=== PATIENT | male | born 1945 | race Caucasian/White ===

== ENCOUNTER 2023-12-23 21:26 | Observation (INO) | payer BC, MEDICARE, SELFPAY ==
[2023-12-23 17:14] VITALS: BP 177/70
[2023-12-23 17:53] LABS: % Basophils 0.5 % (0-2); % Eosinophils 1.2 % (0-6); % Immature Granulocytes 0.8 % (0-0.5); % Monocytes 9.2 % (1.7-9.3); % Neutrophils 75.3 % (42.2-75.2); Absolute Basophils 0.1 10^3/uL (0-0.2); Absolute Eosinophils 0.1 10^3/uL (0-0.7); Absolute Immature Granulocytes 0.1 10^3/uL (0-0.05); Absolute Lymphocytes 1.4 10^3/uL (1.2-3.4); Absolute Neutrophils 7.9 10^3/uL (1.4-6.5); Hematocrit 31.4 % (39.0-52.0); Hemoglobin 10.3 g/dL (13.0-18.0); Mean Corp Hgb Conc. 32.8 g/dL (33.0-37.0); Mean Corpuscular Hgb 28.6 pg (27.0-31.0); Mean Corpuscular Volume 87.2 fL (80.0-94.0); Nucleated Red Blood Cells % 0 % (-); Platelet Count 368 10^3/uL (130-400); Red Cell Dist. Width 14.1 % (11.5-14.5); White Blood Cell Count 10.5 10^3/uL (4.8-10.8)
[2023-12-23 18:04] VITALS: BMI 31.0
[2023-12-23 18:09] LABS: ALT (SGPT) 21 U/L (0-50); AST (SGOT) 31 U/L (17-59); Albumin 3.5 g/dl (3.5-5.0); Alkaline Phosphatase 63 U/L (38-126); Blood Urea Nitrogen 60 mg/dl (9-20); Calcium 8.4 mg/dl (8.4-10.2); Carbon Dioxide 16 mmol/L (22-30); Chloride 109 mmol/L (98-107); Estimated Creatinine Clearance 25 ml/min; Glucose 292 mg/dl (70-99); Potassium 3.9 mmol/L (3.5-5.1); Sodium 139 mmol/L (135-145); Total Bilirubin 0.4 mg/dl (0.2-1.3); eGFR 23.54
[2023-12-23 19:30] LABS: INR 3.15; PT 32.8 Sec (11.4-14.6)
--- NOTE | 2023-12-23 19:42 | ED.GENMED ---
History of Present Illness
General
Chief Complaint: Numbness
Time Seen by Provider: 12/23/23 17:56
Travel History
Have you had any contact with someone who has COVID-19?: No
Do you have any symptoms of coronavirus? Fever > 100 degrees, chills, cough, shortness of breath, sore throat, loss of taste or smell, muscle aches, or headache?: No
History of Present Illness
History of Present Illness:
78-year-old male with history of aortic stenosis status post AVR, CHF, hypertension, hyperlipidemia, and prior TIA presents to the emergency department for evaluation of strokelike symptoms developing 1 week ago. He reports left upper extremity
weakness beginning 1 week ago that progressively worsened, today felt as though he could not clip his nails using the left hand. Noticed this morning the left leg became weak. He denies any headaches or vision changes, denies neck pain, chest
pain, or shortness of breath. Has been compliant with his Coumadin, uncertain of his last INR but states that his previous TIA like events have occurred when his INR drops below therapeutic threshold
Past History
Past History
ED Past Medical History: CAD, CHF, HTN, Hypercholesterolemia, IDDM, Valvular disease and Other (JEREMIAH-no CPAP)
ED Past Surgical History: Cardiac (CABG, Aortic valve replaced) and Orthopedic
Social History
Tobacco: Non-smoker
Alcohol: None
Drug: None
Personal:
Living: with family
Employment: Other
Family History
Family History: Other
Review of Systems
Review of Systems
Allergies reviewed?: Yes
All Other Systems: ROS reviewed and negative except as documented in HPI and ROS
Phy Exam
Physical Exam
Physical Exam:
GEN: Well appearing, NAD, WDWN
HEENT: Oral mucosa moist, no scleral icterus, no nasal congestion
Cardiac: Regular rate
Lung: No respiratory distress, no tachypnea
MSK: No gross deformity or injuries
Skin: Good color, no pallor or jaundice, no rashes
Neuro: AO x3; CN II-XII grossly intact. 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 BLE strength: LLE 4/5 in all killian, RLE 5/5 all killian, sensation intact and symmetric
Psych: Calm, cooperative
Course
Orders/Labs/Results
Orders:
Orders
12/23/23 17:14
Electrocardiogram (*1) Urgent
Reason for Study: Fatigue / Weakness
CT Head W/o Iv Contrast Urgent
Comment:
Reason For Exam: numbness to left arm and leg x1 wk
EKG- Treatment ONCE
12/23/23 17:37
Complete Blood Count/With Diff Urgent
Comprehensive Metabolic Panel Urgent
12/23/23 19:08
Prothrombin Time Urgent
Abnormal Lab Results
12/23/23 12/23/23
17:37 19:08
RBC 3.60 L 10^6/uL
(4.70-6.10)
Hgb 10.3 L g/dL
(13.0-18.0)
Hct 31.4 L %
(39.0-52.0)
MCHC 32.8 L g/dL
(33.0-37.0)
Abs Immat Gran (auto) 0.1 H 10^3/uL
(0-0.05)
Absolute Neuts (auto) 7.9 H 10^3/uL
(1.4-6.5)
Absolute Monos (auto) 1.0 H 10^3/uL
(0.1-0.6)
Immature Gran % 0.8 H %
(0-0.5)
Neutrophils % 75.3 H %
(42.2-75.2)
Lymphocytes % 13.0 L %
(20.5-51.1)
PT 32.8 H Sec
(11.4-14.6)
Chloride 109 H mmol/L
(98-107)
Carbon Dioxide 16 L mmol/L
(22-30)
BUN 60 H mg/dl
(9-20)
Creatinine 2.7 H mg/dL
(0.7-1.3)
Glucose 292 H mg/dl
(70-99)
Total Protein 6.0 L g/dl
(6.3-8.2)
12/23/23 17:37
12/23/23 17:37
Vital Signs
Initial and Last Documented VS:
Initial Vital Signs
Temp Pulse Resp Pulse Ox
98.1 F 97 16 97
12/23/23 17:11 12/23/23 17:11 12/23/23 17:11 12/23/23 17:11
Last Documented Vital Signs
Temp Pulse Resp BP Pulse Ox
98.1 F 97 16 177/70 99
12/23/23 17:11 12/23/23 17:11 12/23/23 17:11 12/23/23 17:14 12/23/23 18:04
MDM/Problems Addressed
MDM/Problems Addressed:
78-year-old male presents for evaluation of left upper and lower extremity weakness. Objectively he has extremity weakness graded 4/[address] of the head is unremarkable. Patient is anticoagulated with an INR of 3.15, at this time
there is no indication for thrombolytics or antiplatelets given his anticoagulant use coupled with time of onset. His renal function precludes the use of CT angiogram at this time. Will admit the patient for further stroke workup
*Critical Care Note
Total Time (30-74mins, 75-104mins- exclusive of procedures): Not Applicable
ED Attending Note
-
Portions of this chart may have been created with voice recognition software.� Occasional wrong word or��sound alike� substitutions may have occurred due to the inherent limitations of voice recognition software.
Discharge Plan
Departure
Patient Disposition: Admit
Date of Disposition: 12/23/23
Time of Disposition: 19:47
Presentation/result/management discussed w/ accepting /: Hospitalist
Discharge Problem:
Acute stroke due to ischemia
Prescriptions:
No Action
amlodipine 10 MG tablet
10 mg PO DAILY
insulin aspart U-100 [Novolog FlexPen U-100 Insulin] 300 UNITS/3 ML insulin pen
16 - 24 units SC .SLIDING SCALE MEALS
Patient Comments:
16-24 units, sliding scale depending on food intake and carbs
atorvastatin 40 MG tablet
40 mg PO HS
fenofibric acid (choline) 135 MG capsule,delayed release(DR/EC)
135 mg PO DAILY
warfarin [Jantoven] 5 MG tablet
2.5 mg PO TU
warfarin [Jantoven] 5 MG tablet
5 mg PO SUMOWETHFRSA
dutasteride [Avodart] 0.5 MG capsule
0.5 mg PO DAILY
hydralazine 50 MG tablet
50 mg PO TID
furosemide 40 MG tablet
40 mg PO BID Qty: 60 2RF
calcitriol 0.25 MCG capsule
0.25 mcg PO DAILY
sodium bicarbonate 650 mg Tablet
650 mg PO DAILY
insulin glargine 100 unit/mL Solution
32 unit SC HS
Referrals:
Julieth Lange DO [Family Provider] -
Interventions
Interventions:
*Risk Screen - Suicide Last Done: 12/23/23 18:04
*General Assessment Last Done: 12/23/23 18:04
*Neglect/Abuse Screening Last Done: 12/23/23 18:04
ED- Fall Risk Assessment Last Done: 12/23/23 18:04
*ED COVID-19 Vaccine History Last Done: 12/23/23 17:11
ED- Neurological Assessment Last Done: 12/23/23 18:04
[2023-12-23 20:51] VITALS: BP 184/89
[2023-12-23 21:00] VITALS: BP 173/84
--- NOTE | 2023-12-23 21:08 | HPS.HSE ---
Family Physician
-
Family Physician: Julieth Lange
Chief Complaint
-
left sided weakness/numbness
History of Present Illness
78-year-old male past medical history of aortic stenosis status post TAVR, CAD status post CABG, paroxysmal atrial fibrillation on Coumadin, HFpEF,, diabetes, diabetic retinopathy, hypertension, hyperlipidemia, prior TIA, stage IV CKD, presenting
for strokelike symptoms which she developed 1 week ago. He had left upper extremity numbness weakness starting a week ago that got progressively worse and today he felt as though he could not clip his nails using the left hand. This morning he
noticed the left leg became weak and numb. He denies any headache or vision changes, neck pain or chest pain or shortness of breath. Did have some dizziness today.
Medical History
Past Medical History
Past Medical History: Reports Other ( aortic stenosis status post TAVR, CAD status post CABG, paroxysmal atrial fibrillation on Coumadin, HFpEF,, diabetes, diabetic retinopathy, hypertension, hyperlipidemia, prior TIA, stage IV CKD,)
Past Surgical History: Reports None
Social History
Tobacco: Non-smoker
Alcohol: None
Drug: None
Family History
Family History: Not pertinent
Allergies / Home Medications
Allergies reflects when Allergies were last updated in [facility].
Home Medications with original date entered in [facility]
Allergy/Medication List:
Allergies
Allergy/AdvReac Type Severity Reaction Status Date / Time
Iodinated Contrast Media Allergy severe Verified 12/23/23 17:13
[IV Dye, Iodine Containing] joint pain
Home Medications
amlodipine 10 mg tablet 10 mg PO DAILY Blood pressure 06/11/15
insulin aspart U-100 100 unit/mL (3 mL) subcutaneous pen (Novolog FlexPen U-100 Insulin aspart) 16 - 24 sliding scale dose SC AC Diabetes 08/13/17
atorvastatin 40 mg tablet 40 mg PO HS High cholesterol 06/28/19
fenofibric acid (choline) 135 mg capsule,delayed release 135 mg PO DAILY High cholesterol 06/28/19
dutasteride 0.5 mg capsule (Avodart) 0.5 mg PO DAILY Urinary issue 11/06/20
warfarin 5 mg tablet (Jantoven) 2.5 mg PO WETH Blood clot prevention/tx 11/06/20
warfarin 5 mg tablet (Jantoven) 5 mg PO SUMOTUFRSA Blood clot prevention/tx 11/06/20
hydralazine 50 mg tablet 50 mg PO TID Heart disease/condition 05/20/21
furosemide 40 mg tablet 40 mg PO BID Fluid retention/Swelling #60 tabs 10/22/21
calcitriol 0.25 mcg capsule 0.25 mcg PO SUTUTHSA Kidney Disease 01/29/22
sodium bicarbonate 650 mg tablet 650 mg PO TID Electrolyte Repletion 08/12/22
calcitriol 0.5 mcg capsule 0.5 mcg PO MOWEFR 12/23/23
insulin glargine 100 unit/mL (3 mL) subcutaneous pen 28 unit SC HS 12/23/23
Review of Systems
-
History Source: Patient
A 12 point ROS was completed and negative except as noted: Yes
Constitutional: Reports No Symptoms
EENT: Reports No Symptoms
Respiratory: Reports No Symptoms
Cardiac: Reports No Symptoms
Abdomen/GI: Reports No Symptoms
: Reports No Symptoms
Musculoskeletal: Reports No Symptoms
Skin: Reports No Symptoms
Neurological: Reports See HPI
Endocrine: Reports No Symptoms
Hematologic/Lymphatic: Reports No Symptoms
Psych: Reports No Symptoms
Physical Exam
Vital Signs
Vital Signs
Temp Pulse Resp BP Pulse Ox
97.9 F 77 18 184/89 96
12/23/23 20:51 12/23/23 20:51 12/23/23 20:51 12/23/23 20:51 12/23/23 20:51
Physical Exam
General: Well Developed, Well Nourished and No Apparent Distress
HEENT: NormoCephalic, Moist mucous membranes and Atraumatic
Respiratory: Clear
Cardiac: S1/S2 and Regular Rhythm; No Murmur or Rub
GI: Soft, Non Tender, Non Distended and Normal Bowel Sounds; No Organomegaly
Rectal: Deferred by Provider
Musculoskeletal: No Clubbing, No Cyanosis and No Edema
Skin: No Rash
Neuro: Nonfocal/grossly intact and Other (strength 4/5)
Laboratory Results
-
12/23/23 17:37
12/23/23 17:37
Laboratory Results
PT 32.8 Sec (11.4-14.6) H 12/23/23 19:08
INR 3.15 12/23/23 19:08
Total Bilirubin 0.4 mg/dl (0.2-1.3) 12/23/23 17:37
AST 31 U/L (17-59) 12/23/23 17:37
ALT 21 U/L (0-50) 12/23/23 17:37
Alkaline Phosphatase 63 U/L (38-126) 12/23/23 17:37
Data Reviewed
-
Lab Data: Labs Reviewed by me
Old Records: Reviewed
Impression/Plan
-
IMPRESSION:
PLAN:
# Likely CVA
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
-Cannot perform CTA due to renal function
-Check MRI brain//MRA head and neck
-Continue Coumadin as per neurology
-INR 3.15
-Continue statin
Paroxysmal atrial fibrillation
-continue coumadin
History of aortic stenosis status post TAVR with bioprosthetic valve
CAD status post CABG
Chronic HFpEF
-Continue Lasix
Moderate mitral regurgitation
Essential hypertension
-Continue amlodipine, hydralazine
Type 2 diabetes
-Continue Lantus 32 units
-Moderate sliding scale
CKD stage IV
-Continue sodium bicarb
-Continue calcitriol
Hyperlipidemia
-Continue statin
History of prior TIA
BPH
-Continue dutasteride
Full code
DVT prophylaxis�Coumadin
Regular diet
[2023-12-23 22:00] VITALS: BP 158/88
[2023-12-23] MEDS: LANTUS 0.280000000000000027 UNITS SC (22:51)
[2023-12-23] MEDS: SODIUM BICARBONATE PO ×2 (22:53→22:56)
[2023-12-23 22:54] LABS: Glucose - Point of Care 195 mg/dl (70-99)
[2023-12-23] MEDS: APRESOLINE PO ×2 (22:54→22:57)
[2023-12-23 23:26] VITALS: BP 136/82
[2023-12-23] MEDS: LIPITOR 40 MG PO (23:33)
[2023-12-24] VITALS (13 sets, daily range): BP systolic 124–182; BP diastolic 65–113; PULSE 79–85; O2SAT 96
[2023-12-24 04:29] LABS: Hematocrit 28.8 % (39.0-52.0); Hemoglobin 9.7 g/dL (13.0-18.0); Mean Corp Hgb Conc. 33.7 g/dL (33.0-37.0); Mean Corpuscular Hgb 29.1 pg (27.0-31.0); Mean Corpuscular Volume 86.5 fL (80.0-94.0); Platelet Count 321 10^3/uL (130-400); Red Blood Cell Count 3.33 10^6/uL (4.70-6.10); Red Cell Dist. Width 14.2 % (11.5-14.5); White Blood Cell Count 8.1 10^3/uL (4.8-10.8)
[2023-12-24 04:40] LABS: INR 3.09; PT 32.4 Sec (11.4-14.6)
[2023-12-24 05:10] LABS: Blood Urea Nitrogen 67 mg/dl (9-20); Calcium 9.1 mg/dl (8.4-10.2); Carbon Dioxide 24 mmol/L (22-30); Chloride 105 mmol/L (98-107); Estimated Creatinine Clearance 22 ml/min; Glucose 136 mg/dl (70-99); HDL Cholesterol 47 mg/dl; LDL Cholesterol, Calculated 61 mg/dl; Potassium 3.8 mmol/L (3.5-5.1); Sodium 141 mmol/L (135-145); Total Cholesterol 131 mg/dl (50-199); Triglyceride 117 mg/dl (10-149); Very Low Density Lipoprotein 23 mg/dl (0-30); eGFR 19.94
[2023-12-24 08:16] LABS: Glucose - Point of Care 137 mg/dl (70-99)
[2023-12-24] MEDS: APRESOLINE 50 MG PO ×3 (08:16→22:03)
[2023-12-24] MEDS: NORVASC 10 MG PO (08:16)
[2023-12-24] MEDS: LASIX 40 MG PO ×2 (08:16→16:46)
[2023-12-24] MEDS: NOVOLOG FLEXPEN-MODERATE RESISTANCE SC (08:16)
[2023-12-24] MEDS: SODIUM BICARBONATE 650 MG PO ×3 (08:16→22:07)
[2023-12-24] MEDS: PROSCAR 5 MG PO (08:17)
[2023-12-24] MEDS: ROCALTROL 0.25 MCG PO (08:18)
--- NOTE | 2023-12-24 08:55 | CON.NEURO4 ---
Addendum entered and electronically signed by Pb Dubon MD 12/24/23 12:27:
Studies reviewed.
I have personally examined the patient. I reviewed and agree with the SLIP COVER MAKER's Note.
My addenda:
Awake, alert, interactive. No acute distress.
Speech intact.
Follows 2-step requests w/o difficulty. No tremor.
Extra-ocular movements grossly intact.
Facial movements full and symmetric. Hearing intact to normal conversational volume.
Normal UE movements bilaterally.
Neck: full ROM.
Chest: no dyspnea
Heart: no JVD
Ext: (-) Clubbing, (-) Cyanosis, (-) Edema
IMPRESSIONS/RECOMMENDATIONS:
Abrupt onset of left arm and leg sense of heaviness and numbness without facial involvement
MRI brain without evidence of structural abnormality matching the patient's symptomatology although the persistence of symptoms has been across numerous days.
Differential diagnosis must include cervical myelopathy, metabolic abnormality, atypical presentation of demyelinating motor and sensory abnormality (least likely based on the patient's intermittent recurrence since July 2022)
Check MRI of brain (completed)
Check MRI of cervical spine to ensure no structural abnormality producing symptomatology
Check blood work for potential metabolic causes
Consider EMG study
D/W patient
Will continue to follow pending results.
Original Note:
Consultation - Neurology 4
-
CONSULTING PHYSICIAN: Pb Dubon MD
REFERRING PHYSICIAN: Hospitalists/Dr. Serrato
DICTATED BY: JOSE Nunez
DATE/TIME OF REQUEST: 12/23/23
DATE/TIME OF CONSULTATION: 12/24/23
Reason for Consultation: Stroke symptoms
History of Present Illness:
This is a 78-year-old ambidextrous male who has presented to the hospital on 12/23/23 with report of left-sided numbness and weakness starting one week ago. Patient has been evaluated by our inpatient Neurology service several times in the past for
similar symptoms.
From previous Neurology evaluation by Dr. Pisano on 08/13/22:
'Patient is a right-handed 77-year-old man with a past medical history of TURP, bioprosthetic valve replacement, right ICA stent presenting the hospital because of left leg heaviness and numbness that he first noticed when awakening yesterday
morning.� Patient reports has been in his normal state of health recently and has been compliant with Coumadin.� He did have a little bit of a standing and pain on the left hip and buttock around a week ago but denies any radiating type pain from
the left buttock hip or left leg.� He says that the left leg is felt heavy and a bit weak and his walking feels a little bit off but he has been able to walk around independently since this started.� The symptoms seem to be sudden onset and severity
is mild to moderate, no obvious alleviating or provoking factors.� He has had some constipation but no unusual or acute changes in bowel or bladder dysfunction including any sudden incontinence of bowel or bladder dysfunction.� He does report
history of TIAs in the past usually involving the left leg only or perhaps the left leg and arm that usually occurred in the context of holding Coumadin for procedures, as with the last 1 of these happen several months ago.� He did have a right ICA
stent placed years ago by Dr. Cain, reports having been evaluated by vascular surgery in the context of one of the TIA events.'
MRI brain imaging following these events in the past, in the setting of holding his Coumadin for a procedure and/or subtherapeutic INR, have demonstrated an old left cerebellar lacunar infarct but have been negative for any acute findings. These
events were deemed TIA or his most recent event in 07/2022 was deemed due to left-sided lumbar radiculopathy.
Patient reports that about 7-10 days ago he developed left-sided chest discomfort radiating down his left arm. This was associated with LUE weakness and left arm/hand numbness down the back of his left arm and in his left hand 4th and 5th fingers
only. Yesterday (12/23/23) he reports that his LLE felt weak and he was unable to use his left hand to clip his nails, prompting him to come to the ER for evaluation. ER VS: 97.9 F, HR 77, BP 184/89, RR 18, 96% RA. ER Labs: hgb 10.3, INR 3.15, Cr
2.7, glucose 292. CT head was obtained and is negative for acute infarct and hemorrhage. Patient was not a candidate for TNK/IAT due to NIHSS<6, outside of time window, and unclear diagnosis. Currently, patient reports that his symptoms are
persistent. He denies any headache, vision changes, neck/back pain, speech/swallow difficulty, nausea, chest pain, palpitations, and shortness of breath. He does endorse having some dizziness associated with standing up a few days ago, none
currently. He reports chronic issues with constipation and urinating requiring urethral dilation every few days. He denies missing any doses of his Coumadin or recent subtherapeutic INR readings. He reports that his symptoms feel similar to previous
events but they have never lasted this long, his symptoms have resolved in a few hours with previous episodes.
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
Surgical History: AVR, R ICA stent, hernia repair, TURP, ankle and wrist surgery, left cataract removal
Family History: Father- [place]
Social History: Denies tobacco, alcohol, and illicit drug use.
Allergies: Iodinated contrast.
Home Medications: See below.
Review of Symptoms:
Patient denies any fever, headache, chest pain, shortness of breath, GI or symptoms.
�Per the HPI.�All systems are reviewed negative except above.
Physical Exam:
The patient is afebrile, abdomen is nondistended, breathing is unlabored, skin is warm and dry, no edema. Scalloping noted on tongue.
NIH Stroke Scale:
I performed the NIH stroke scale on the patient on 12/24/23 at 0900. The patient scored 1 points on the NIH stroke scale assessment, which were assigned as follows: See below.
Neurologic Examination:
The patient is awake, alert and oriented x 3. He is able to follow commands and answer questions appropriately. There is no aphasia or dysarthria. On cranial nerve assessment, pupils are 3 mm bilateral, round and reactive to light and
accommodation. Visual killian are full. Extraocular movements are intact. Facial sensations are intact and bilaterally symmetrical, there is no facial asymmetry. Hearing is diminished bilaterally to normal conversation volume. Tongue palate and
uvula are midline. Sternocleidomastoid strengths are full bilaterally. Motor strengths are 5/5 right upper and lower and left upper and lower extremities on medical research [place] scale. There is no drift or involuntary movement noted. Deep tendon
reflexes are silent in bilateral upper and lower extremities. Babinski is absent bilaterally. Sensation of touch is reduced mildly in the left hand 4th/5th fingers. There was no extinction noted on double simultaneous stimulation. Coordination is
intact by finger to nose bilaterally.
Lab Results: See below.
Neuro Imaging:
1. CT Head 12/23/23: No CT evidence for acute intracranial hemorrhage or transcortical infarct. Small chronic infarct in the superior left cerebellar hemisphere. Mild periventricular white matter leukoaraiosis in the frontal lobes.
Mild diffuse cerebral and cerebellar volume loss. Mild acute right sphenoid sinusitis.
2. MRI Brain 12/24/23: No acute intracranial abnormality noted. No acute infarct. 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 Acute superimposed on chronic sinusitis most pronounced involving the right maxillary sinus and right sphenoid sinus.
3. MRA COW 12/24/23: pending
4. MRA Neck 12/24/23: pending
Differentials for the patient's presentation include:
1. MRI brain imaging negative for acute/subacute stroke. Duration of symptoms not compatible with TIA.
2. Chronic left cerebellar lacunar infarct.
3. Cervical and/or lumbar radiculopathy possibly contributing to symptoms although
4. Metabolic disturbance possibly contributing to symptoms
5. Acute on chronic right maxillary and sphenoid sinusitis.
6. History of carotid stenosis
Patient has the following risk factors for their symptoms: Hx stroke, Afib (Coumadin), IDDM, HLD, HTN, carotid stenosis, age
IV Tenecteplase/IAT candidacy: Not a candidate due to NIHSS <6, outside of time window.
Recommendations:
-MRA neck and COW ordered/pending
-Continue home Coumadin regimen.
-Would consider MRI cervical and lumbar spine imaging, this can be completed as an outpatient.
-Consider EMG testing as an outpatient.
-Checking blood work for metabolic abnormalities.
-LDL goal <70. LDL is 61. Continue home atorvastatin 40mg daily.
-Goal normoglycemia, hbA1c is pending.
-Neurological checks per unit guidelines.
-Provide patient with stroke education packet.
-PT/OT evaluations
-Patient should follow-up with Neurology as an outpatient, may see the SLIP COVER MAKER Rama Asher or one of the physicians.
Discussed patient care with: Dr. Dubon, the patient
Vital Signs and Labs
-
Vital Signs and Labs:
Vital Signs
Temp Pulse Resp BP Pulse Ox
97.9 F 82 17 162/74 96
12/24/23 11:20 12/24/23 11:20 12/24/23 11:20 12/24/23 11:20 12/24/23 11:20
Lab Results
12/24/23 03:54
12/24/23 03:54
PT 32.4 Sec (11.4-14.6) H 12/24/23 03:54
INR 3.09 12/24/23 03:54
Sodium 141 mmol/L (135-145) 12/24/23 03:54
Potassium 3.8 mmol/L (3.5-5.1) 12/24/23 03:54
BUN 67 mg/dl (9-20) H 12/24/23 03:54
Glucose 136 mg/dl (70-99) H 12/24/23 03:54
Calcium 9.1 mg/dl (8.4-10.2) 12/24/23 03:54
LDL Cholesterol, Calc 61 mg/dl 12/24/23 03:54
Medications
-
Active Medications
Generic Name Dose Route Start Last Admin
Trade Name Freq PRN Reason Stop Dose Admin
Acetaminophen 650 mg 12/23/23 21:47
Acetaminophen 650 Mg Rectal Suppository RECTAL 01/20/24 21:46
Q4HPRN PRN
THOMAS, mild pain, or temp >100.4F
Acetaminophen 650 mg 12/23/23 21:47
Acetaminophen 325 Mg Tablet PO 01/20/24 21:46
Q4HPRN PRN
THOMAS, mild pain, or temp >100.4F
Amlodipine Besylate 10 mg 12/24/23 08:00 12/24/23 08:16
Amlodipine 10 Mg Tablet PO 01/21/24 07:59 10 mg
DAILY CHENG Administration
Atorvastatin Calcium 40 mg 12/23/23 22:00 12/23/23 23:33
Atorvastatin (Lipitor) 40 Mg Tablet PO 01/20/24 21:59 40 mg
HS CHENG Administration
Calcitriol 0.25 mcg 12/24/23 08:00 12/24/23 08:18
Calcitriol 0.25 Microgram Capsule PO 01/21/24 07:59 0.25 mcg
MoWeFr@0800 CHENG Administration
Calcitriol 0.25 mcg 12/25/23 08:00
Calcitriol 0.25 Microgram Capsule PO 01/22/24 07:59
SuTuThSa@0800 CHENG
Dextrose 12.5 grams 12/23/23 21:47
Dextrose 50% (0.5 Grams/Ml) 50 Ml Syringe IV 01/20/24 21:46
[id number] PRN
hypoglycemia
Protocol
Finasteride 5 mg 12/24/23 08:00 12/24/23 08:17
Finasteride 5 Mg Tablet PO 01/21/24 07:59 5 mg
DAILY CHENG Administration
Furosemide 40 mg 12/24/23 08:00 12/24/23 08:16
Furosemide 40 Mg Tablet PO 01/21/24 07:59 40 mg
BID AT 0800,1600 CHENG Administration
Glucagon 1 mg 12/23/23 21:47
Glucagon 1 Mg Vial IM 01/20/24 21:46
PRN PRN
hypoglycemia
Protocol
Hydralazine HCl 50 mg 12/23/23 22:00 12/24/23 08:16
Hydralazine 50 Mg Tablet PO 01/20/24 21:59 50 mg
TID CHENG Administration
Insulin Glargine 28 units/ 0.28 mls @ 0 mls/hr 12/23/23 22:00 12/23/23 22:51
Device SC 01/20/24 21:59 0.28 mls
HS CHENG Administration
As Directed
Insulin Aspart 0 units 12/24/23 07:30 12/24/23 08:16
Insulin Aspart Moderate Resistance 300 Units/3 Ml Pen.Injctr SC 01/21/24 07:29 Not Given
AC CHENG
Protocol
Sodium Bicarbonate 650 mg 12/23/23 22:00 12/24/23 08:16
Sodium Bicarbonate 650 Mg Tablet PO 01/20/24 21:59 650 mg
TID CHENG Administration
Sodium Chloride 0 flush 12/23/23 22:00
Sodium Chloride 0.9% (Flush) Syringe IV 01/20/24 21:59
PER PROTOCOL CHENG
Warfarin Sodium 2.5 mg 12/29/23 18:00
Warfarin 2.5 Mg Tablet PO 01/03/24 17:59
WeTh@1800 CHENG
Warfarin Sodium 5 mg 12/24/23 18:00
Warfarin 5 Mg Tablet PO 12/29/23 17:59
SuMoTuFrSa@1800 CHENG
Home Medications
Medication Instructions Recorded
amlodipine 10 mg tablet 10 mg PO DAILY Blood pressure 06/11/15
insulin aspart U-100 100 unit/mL - sliding scale dose SC AC 08/13/17
(3 mL) subcutaneous pen (Novolog Diabetes
FlexPen U-100 Insulin aspart)
atorvastatin 40 mg tablet 40 mg PO HS High cholesterol 06/28/19
fenofibric acid (choline) 135 mg 135 mg PO DAILY High cholesterol 06/28/19
capsule,delayed release
dutasteride 0.5 mg capsule 0.5 mg PO DAILY Urinary issue 11/06/20
(Avodart)
warfarin 5 mg tablet (Jantoven) 2.5 mg PO WETH Blood clot 11/06/20
prevention/tx
warfarin 5 mg tablet (Jantoven) 5 mg PO SUMOTUFRSA Blood clot 11/06/20
prevention/tx
hydralazine 50 mg tablet 50 mg PO TID Heart 05/20/21
disease/condition
furosemide 40 mg tablet 40 mg PO BID Fluid 10/22/21
retention/Swelling #60 tabs
calcitriol 0.25 mcg capsule 0.25 mcg PO SUTUTHSA Kidney Disease 01/29/22
sodium bicarbonate 650 mg tablet 650 mg PO TID Electrolyte Repletion 08/12/22
calcitriol 0.5 mcg capsule 0.5 mcg PO MOWEFR Kidney Disease 12/23/23
insulin glargine 100 unit/mL (3 28 unit SC HS Diabetes 12/23/23
mL) subcutaneous pen
[2023-12-24] MEDS: ATIVAN 1 MG PO (10:09)
[2023-12-24 12:00] LABS: Glycohemoglobin (HgbA1c) 7.2 % (4.0-5.6)
[2023-12-24 12:12] LABS: Glucose - Point of Care 327 mg/dl (70-99)
--- NOTE | 2023-12-24 12:49 | W.PN.HOSP.TC ---
Today's Communication/Plan
-
see bold
Assessment / Plan
Assessment / Plan
Gen: NAD, Awake and alert
Eyes: EOMI, PERRLA, no scleral icterus.
Neck: supple.
CV: RRR, +S1/S2 (loud S2), 2/6 systolic murmur
Resp: CTAB, no rales, wheezes, or rhonchi.
Abd: +BS, soft, NT, ND
Skin: No rashes.
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
Psych: Normal mood and affect.
MRI brain: No acute intracranial abnormality noted. No acute infarct. 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 Acute superimposed on chronic sinusitis most pronounced involving the right maxillary sinus and right sphenoid sinus.
MRA head/neck: Subtle segmental narrowing involving the distal right common carotid artery approaching the carotid bulb. No other significant plaque or stenosis of the cervical common carotid or internal carotid artery, bilaterally. No occlusion. No
dissection. The cervical vertebral arteries are patent, as are the intradural vertebral arteries and basilar artery. Minor segmental narrowing of the right MCA distal M1 segment without significant stenosis or occlusion. Mild plaque of the anterior
genu of the cavernous ICA, bilaterally, though with estimated luminal diameter reduction of less than 50%.
Left-sided weakness/numbness
-Acute CVA ruled out by MRI brain above
-Case discussed with neurology, will check MRI C-spine
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
-Could not perform CTA due to renal function
-Continue Coumadin as per neurology
-Continue statin
Other problems:
Paroxysmal atrial fibrillation: cont Coumadin
History of aortic stenosis status post TAVR with bioprosthetic valve
CAD status post CABG: cont statin
Chronic HFpEF: Continue Lasix
Moderate mitral regurgitation
Essential hypertension: Continue amlodipine, hydralazine
DM2: cont Lantus/SSI/accuchecks
CKD4: cont sodium bicarb/calcitriol
Hyperlipidemia: Continue statin
History of prior TIA
BPH: Continue dutasteride
FULL/Coumadin
Anticipated Discharge: Within 24 hours
Subjective/Interval History
-
Date of Service: December 24, 2023
Patient reports left arm and left leg weakness and paresthesias.
Objective Data
-
Labs:
Laboratory Results
12/24/23
03:54
WBC 8.1
Hgb 9.7 L
Hct 28.8 L
Plt Count 321
PT 32.4 H
INR 3.09
Sodium 141
Potassium 3.8
Chloride 105
Carbon Dioxide 24
BUN 67 H
Creatinine 3.1 H
Glucose 136 H
Calcium 9.1
Vital Signs:
Vital Signs
Temp Pulse Resp BP Pulse Ox
97.9 F 82 17 162/74 96
12/24/23 11:20 12/24/23 11:20 12/24/23 11:20 12/24/23 11:20 12/24/23 11:20
I&O
12/23/23 12/24/23 12/25/23
06:59 06:59 06:59
Intake Total 240 / 240
Output Total 600 / 600 200 / 200
Balance -360 / -360 -200 / -200
[2023-12-24] MEDS: NOVOLOG FLEXPEN-MODERATE RESISTANCE 7 UNITS SC (13:04)
[2023-12-24 14:25] LABS: TSH Reflex To Free T4 2.29 uIU/ml (0.47-4.68)
[2023-12-24 15:00] LABS: Folate 16.9 ng/ml (2.76-20); Vitamin B12 435 pg/ml (239-931)
[2023-12-24 16:54] LABS: Glucose - Point of Care 189 mg/dl (70-99)
[2023-12-24] MEDS: NOVOLOG FLEXPEN-MODERATE RESISTANCE 1 UNITS SC (17:18)
[2023-12-24] MEDS: COUMADIN 5 MG PO (17:22)
[2023-12-24 21:34] LABS: Glucose - Point of Care 370 mg/dl (70-99)
[2023-12-24] MEDS: NOVOLOG FLEXPEN 7 UNITS SC (22:03)
[2023-12-24] MEDS: LANTUS 0.280000000000000027 UNITS SC (22:07)
[2023-12-24] MEDS: LIPITOR 40 MG PO (22:07)
[2023-12-25 02:44] LABS: Glucose - Point of Care 52 mg/dl (70-99)
[2023-12-25 03:05] LABS: Glucose - Point of Care 115 mg/dl (70-99)
--- NOTE | 2023-12-25 03:09 | PTCARENOTE ---
Addendum entered by Freda Langston RN 12/25/23 03:10:
pt rang call guerrero c/o feeling low BG. BG 52 at 0242. 4oz juice given as well as crackers. BG came up to 115 after 15 min recheck. will recheck in 2 hrs and monitor.
Original Note:
pt BG at 2130 370, JOSE Willson notified. 7U novolog ordered and administered.
[2023-12-25 03:26] VITALS: BP 132/68
[2023-12-25 05:22] LABS: Glucose - Point of Care 164 mg/dl (70-99)
[2023-12-25 06:00] VITALS: BMI 31.2
[2023-12-25 07:36] VITALS: BP 157/81
[2023-12-25 07:46] LABS: Glucose - Point of Care 117 mg/dl (70-99)
--- NOTE | 2023-12-25 08:19 | W.PN.HOSP.TC ---
Today's Communication/Plan
-
Awaiting MRI C-spine
Assessment / Plan
Assessment / Plan
Gen: NAD, Awake and alert
Eyes: EOMI, PERRLA, no scleral icterus.
Neck: supple.
CV: Remains RRR, +S1/S2 (loud S2), 2/6 systolic murmur
Resp: Remains CTAB, no rales, wheezes, or rhonchi.
Abd: +BS, soft, NT, ND
Skin: No rashes.
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
Psych: Normal mood and affect.
MRI brain: No acute intracranial abnormality noted. No acute infarct. 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 Acute superimposed on chronic sinusitis most pronounced involving the right maxillary sinus and right sphenoid sinus.
MRA head/neck: Subtle segmental narrowing involving the distal right common carotid artery approaching the carotid bulb. No other significant plaque or stenosis of the cervical common carotid or internal carotid artery, bilaterally. No occlusion. No
dissection. The cervical vertebral arteries are patent, as are the intradural vertebral arteries and basilar artery. Minor segmental narrowing of the right MCA distal M1 segment without significant stenosis or occlusion. Mild plaque of the anterior
genu of the cavernous ICA, bilaterally, though with estimated luminal diameter reduction of less than 50%.
Left-sided weakness/numbness
-Acute CVA ruled out by MRI brain above
-Case discussed with neurology, will check MRI C-spine
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
-Could not perform CTA due to renal function
-Continue Coumadin as per neurology
-Continue statin
Other problems:
Paroxysmal atrial fibrillation: cont Coumadin
History of aortic stenosis status post TAVR with bioprosthetic valve
CAD status post CABG: cont statin
Chronic HFpEF: Continue Lasix
Moderate mitral regurgitation
Essential hypertension: Continue amlodipine, hydralazine
DM2: cont Lantus/SSI/accuchecks
CKD4: cont sodium bicarb/calcitriol
Hyperlipidemia: Continue statin
History of prior TIA
BPH: Continue dutasteride
FULL/Coumadin
Anticipated Discharge: Today
Subjective/Interval History
-
Date of Service: December 25, 2023
Pt reports he still has intermittent left-sided weakness.
Objective Data
-
Vital Signs:
Vital Signs
Temp Pulse Resp BP Pulse Ox
98.0 F 72 16 157/81 97
12/25/23 07:36 12/25/23 07:36 12/25/23 07:36 12/25/23 07:36 12/25/23 07:36
I&O
12/24/23 12/25/23 12/26/23
06:59 06:59 06:59
Intake Total 240 / 240 480 / 480
Output Total 600 / 600 800 / 800
Balance -360 / -360 -320 / -320
[2023-12-25] MEDS: NOVOLOG FLEXPEN-MODERATE RESISTANCE SC (08:30)
[2023-12-25] MEDS: NORVASC 10 MG PO (08:31)
[2023-12-25] MEDS: PROSCAR 5 MG PO (08:31)
[2023-12-25] MEDS: SODIUM BICARBONATE 650 MG PO ×3 (08:31→21:25)
[2023-12-25] MEDS: LASIX 40 MG PO ×2 (08:31→16:18)
[2023-12-25] MEDS: APRESOLINE 50 MG PO ×3 (08:31→21:25)
[2023-12-25 09:37] LABS: INR 2.72; PT 29.3 Sec (11.4-14.6)
[2023-12-25] MEDS: ROCALTROL 0.25 MCG PO (10:05)
[2023-12-25 11:51] LABS: Glucose - Point of Care 249 mg/dl (70-99)
[2023-12-25] MEDS: ATIVAN 1 MG PO (11:54)
[2023-12-25 12:05] VITALS: BP 166/81
[2023-12-25] MEDS: NOVOLOG FLEXPEN-MODERATE RESISTANCE 3 UNITS SC ×2 (12:30→17:07)
--- NOTE | 2023-12-25 13:53 | CM ---
CM following re: discharge planning.
reviewed pt's chart, met with pt.
Pt is a 78 year old male, admitted with OBS status and primary concerns of Left-sided weakness/numbness.
Acute CVA ruled out by MRI brain. OBS status explained to the pt, pt expressed his understanding, declined to sign. Copy of [facility] Letter placed on chart, pt has a copy. Pt stated 'I hope i can be out here today'. Pt stated his family will transport
him home today.
Pt reports he lives with spouse and a son in a 2SH, 2 steps to enter, has 3 supportive children. 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 No DME, VN or SNF history.
PCP: [facility]
Pharmacy: [facility].
D/C plan: home no needs. Family to transport.
--- NOTE | 2023-12-25 14:07 | W.PN.NEURO.1 ---
Today's Communication / Plan
-
MRI Cspine read pending
Neuro Assessment/Plan
Assessment
78 year-old male with LUE numbness/weakness/diminished dexterity concerning for cervical radiculopathy. He also complains of intermittent numbness/abnormal sensation in the proximal lateral LLE concerning for possible lumbar radiculopathy. MRI
brain negative for stroke as cause for his symptoms.
Plan
-MRI Cspine read pending
-consider EMG/NCS and MRI Lspine as outpatient
-can be discharged after MRI Cspine read
-consider outpatient spine evaluation/PT depending upon results
Subjective/Objective
Subjective Data
Date of Service: December 25, 2023
had some L shoulder pain this morning (now resolved), still having numbness on posterior aspect of left arm and L hand 4th/5th digits as well as some L hand weakness/diminished dexterity; also complains of some proximal lateral LLE numbness
Objective Data
Vital Signs
Temp Pulse Resp BP Pulse Ox
98.0 F 86 18 166/81 97
12/25/23 12:05 12/25/23 12:05 12/25/23 12:05 12/25/23 12:05 12/25/23 12:05
Lab Results
12/24/23 03:54
12/24/23 03:54
PT 29.3 Sec (11.4-14.6) H 12/25/23 09:04
INR 2.72 12/25/23 09:04
Sodium 141 mmol/L (135-145) 12/24/23 03:54
Potassium 3.8 mmol/L (3.5-5.1) 12/24/23 03:54
BUN 67 mg/dl (9-20) H 12/24/23 03:54
Glucose 136 mg/dl (70-99) H 12/24/23 03:54
Calcium 9.1 mg/dl (8.4-10.2) 12/24/23 03:54
LDL Cholesterol, Calc 61 mg/dl 12/24/23 03:54
Vitamin B12 435 pg/ml (239-931) 12/24/23 03:54
Patient Allergies
Iodinated Contrast Media [IV Dye, Iodine Containing] Allergy (Verified 12/23/23 17:13)
severe joint pain
Physical Exam
-
General: Well Developed, Well Nourished and No Apparent Distress
Extended Neurological Exam
Mood & Affect: Mood Unremarkable and Affect Unremarkable
Attention Span & Concentration: Awake, Alert and Interactive
Memory: Unremarkable
Tremor: Hand Tremor Absent
Involuntary Movement: None
Speech: Quality Unremarkable, Quantity Unremarkable and Rate of Production Unremarkable
Cranial Nerve II: Left Eye: Pupillary Reactivity Unremarkable
Cranial Nerve II: Right Eye: Pupillary Reactivity Unremarkable
Cranial Nerves III, IV, : Extraocular Movement: Extraocular Movement Full in all Directions
Cranial Nerve V: Facial Sensation: Facial Sensation Unremarkable to Cold
Cranial Nerve VII: Facial Symmetry: Normal Facial Symmetry
Cranial Nerve VIII: Hearing: Unremarkable Hearing to Normal Conversational Volume
Cranial Nerves IX, X: Palate Movement: Palate Elevation Symmetric
Cranial Nerve XI: Shoulder Shrug: Unremarkable
Cranial Nerve XII: Tongue Protusion: Midline
Muscle Strength, Overall: Other (L biceps and hand probate judge strength 4+; otherwise full strength)
Deep Tendon Reflexes: Other (1+ throughout)
Cold Sensation: Unremarkable
Touch Sensation: Unremarkable
Coordination: [id number]-[id number] Testing Unremarkable
Modified Tolleson Score (MRS)
-
MRS Score:
[2023-12-25 15:45] VITALS: BP 153/72
[2023-12-25 16:59] LABS: Glucose - Point of Care 237 mg/dl (70-99)
[2023-12-25] MEDS: COUMADIN 5 MG PO (17:11)
[2023-12-25 19:35] VITALS: BP 168/78
[2023-12-25] MEDS: LIPITOR 40 MG PO (21:25)
[2023-12-25 21:44] LABS: Glucose - Point of Care 178 mg/dl (70-99)
[2023-12-25] MEDS: LANTUS 0.280000000000000027 UNITS SC (21:46)
[2023-12-25 23:00] VITALS: BP 131/75
[2023-12-26 03:30] VITALS: BP 135/67
[2023-12-26 03:33] LABS: Glucose - Point of Care 70 mg/dl (70-99)
[2023-12-26 04:12] LABS: Glucose - Point of Care 155 mg/dl (70-99)
[2023-12-26 04:23] VITALS: BMI 31.2
[2023-12-26 07:00] VITALS: BP 147/63
[2023-12-26 07:04] LABS: INR 2.92; PT 30.9 Sec (11.4-14.6)
--- NOTE | 2023-12-26 07:34 | W.PN.HOSP.TC ---
Today's Communication/Plan
-
d/c
Assessment / Plan
Assessment / Plan
Gen: NAD, Awake and alert
Eyes: EOMI, PERRLA, no scleral icterus.
Neck: supple.
CV: Continues to remain RRR, +S1/S2 (loud S2), 2/6 systolic murmur
Resp: Continues to remain CTAB, no rales, wheezes, or rhonchi.
Abd: +BS, soft, NT, ND
Skin: No rashes.
Neuro: CN 2-12 intact, decreased sensation to touch in the left fourth and fifth fingers, 5/5 x 4
Psych: Normal mood and affect.
MRI brain: No acute intracranial abnormality noted. No acute infarct. 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 Acute superimposed on chronic sinusitis most pronounced involving the right maxillary sinus and right sphenoid sinus.
MRI C-spine: Multilevel cervical degenerative disc disease.
MRA head/neck: Subtle segmental narrowing involving the distal right common carotid artery approaching the carotid bulb. No other significant plaque or stenosis of the cervical common carotid or internal carotid artery, bilaterally. No occlusion. No
dissection. The cervical vertebral arteries are patent, as are the intradural vertebral arteries and basilar artery. Minor segmental narrowing of the right MCA distal M1 segment without significant stenosis or occlusion. Mild plaque of the anterior
genu of the cavernous ICA, bilaterally, though with estimated luminal diameter reduction of less than 50%.
Left-sided weakness/numbness
-Could not perform CTA due to renal function
-Acute CVA ruled out by MRI brain above
-MRI C-spine above with multilevel cervical degenerative disc disease
-neurology saw in c/s. Case discussed with Dr. Medina today she is cleared the patient for discharge
-currently on coumadin/statin
-Outpatient follow-up with spinal surgery
Other problems:
Paroxysmal atrial fibrillation: cont Coumadin
History of aortic stenosis status post TAVR with bioprosthetic valve
CAD status post CABG: cont statin
Chronic HFpEF: Continue Lasix
Moderate mitral regurgitation
Essential hypertension: Continue amlodipine, hydralazine
DM2: cont Lantus/SSI/accuchecks
CKD4: cont sodium bicarb/calcitriol
Hyperlipidemia: Continue statin
History of prior TIA
BPH: Continue dutasteride
FULL/Coumadin
Medically stable for discharge. Case management aware.
Total time spent on d/c = 31 min. This included today's physical exam, progress note, review of laboratory and diagnostic data, preparation of discharge documents and prescriptions, and discussions about the pt's hospital course and discharge plan
with the patient and other director medical safety involved in the patient's care.
Anticipated Discharge: Today
Subjective/Interval History
-
Date of Service: December 26, 2023
No new complaints. Patient reports strength in his left upper extremity has improved. He is ambulating without difficulty. He does report numbness in his left fourth and fifth fingers.
Objective Data
-
Labs:
Laboratory Results
12/26/23
05:52
PT 30.9 H
INR 2.92
Vital Signs:
Vital Signs
Temp Pulse Resp BP Pulse Ox
98 F 73 16 135/67 97
12/26/23 03:30 12/26/23 03:30 12/26/23 03:30 12/26/23 03:30 12/26/23 03:30
I&O
12/25/23 12/26/23 12/27/23
06:59 06:59 06:59
Intake Total 480 / 480 600 / 600 960 / 960
Output Total 800 / 800
Balance -320 / -320 600 / 600 960 / 960
[2023-12-26 08:11] LABS: Glucose - Point of Care 77 mg/dl (70-99)
[2023-12-26] MEDS: NOVOLOG FLEXPEN-MODERATE RESISTANCE SC (08:27)
[2023-12-26] MEDS: NORVASC 10 MG PO (08:28)
[2023-12-26] MEDS: SODIUM BICARBONATE 650 MG PO (08:28)
[2023-12-26] MEDS: LASIX 40 MG PO (08:28)
[2023-12-26] MEDS: APRESOLINE 50 MG PO (08:28)
[2023-12-26] MEDS: PROSCAR 5 MG PO (08:28)
[2023-12-26] MEDS: ROCALTROL 0.25 MCG PO (08:31)
--- NOTE | 2023-12-26 10:40 | CM ---
CM following re: discharge planning.
Reviewed pt's chart, met with pt.
Discharge order noted. Pt is aware and he stated his spouse is coming to transport home.
PT and OT evaluations noted - outpatient PT/OT recommended. CM discussed it with pt and pt strongly declined outpatient PT/OT. Pt stated he is fine to stay with family and does not need any services.
Pt is OBS status, no IMM form needed.
D/C plan: home with no needs. Spouse to transport.
--- NOTE | 2023-12-26 13:40 | W.DCSUMMARY ---
Discharge Summary
Discharge Data
Date of Admission: 12/23/23
Date of Discharge: 12/26/23
-
Pending Results: No
Hospital Course
Primary diagnoses:
Left-sided weakness/numbness due to cervical degenerative disc disease
Secondary diagnoses:
Paroxysmal atrial fibrillation
History of aortic stenosis status post transcatheter aortic valve replaced with bioprosthetic valve
Coronary artery disease status post coronary artery bypass graft
Chronic heart failure with preserved ejection fraction
Moderate mitral regurgitation
Essential hypertension
Type 2 diabetes mellitus
Chronic kidney disease stage IV
Hyperlipidemia
h/o transient ischemic attack
Benign prostatic hypertrophy
Consultants:
Neurology
Imaging:
MRI brain: No acute intracranial abnormality noted. No acute infarct. 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 Acute superimposed on chronic sinusitis most pronounced involving the right maxillary sinus and right sphenoid sinus.
MRI C-spine: Multilevel cervical degenerative disc disease.
MRA head/neck: Subtle segmental narrowing involving the distal right common carotid artery approaching the carotid bulb. No other significant plaque or stenosis of the cervical common carotid or internal carotid artery, bilaterally. No occlusion. No
dissection. The cervical vertebral arteries are patent, as are the intradural vertebral arteries and basilar artery. Minor segmental narrowing of the right MCA distal M1 segment without significant stenosis or occlusion. Mild plaque of the anterior
genu of the cavernous ICA, bilaterally, though with estimated luminal diameter reduction of less than 50%.
78-year-old male who presented with chief complaints of left-sided weakness and numbness as outlined in the H&P done on admission. Patient cannot have a CT angiogram of the head and neck due to his chronic kidney disease stage IV. Patient had
MRI/MRA of the head and neck as above. There was no acute infarct. MRI C-spine above with multilevel cervical degenerative disc disease. Neurology saw the patient in consultation. The case was discussed with Dr. Medina on the day of discharge
and she cleared the patient for discharge. He will need outpatient follow-up with spinal surgery. His weakness improved while hospitalized.
Discharge Plan
-
Patient Disposition: Home (Routine Discharge)
Discharge Diagnosis/Procedures: Left-sided weakness and paresthesias likely due to cervical spine degenerative disc disease
Condition: Good
Diet: Diabetic, Carb Controlled
Activity: As tolerated
Driving Restrictions: Not until seen by your Dr
Referrals:
Julieth Lange DO [Family Provider] - in less than 1 week
Clint Duran MD [Active] - in one to two weeks
Prescriptions:
Continued
amlodipine 10 MG tablet
10 mg PO DAILY
insulin aspart U-100 [Novolog FlexPen U-100 Insulin] 300 UNITS/3 ML insulin pen
16 - 24 sliding scale dose SC AC
Patient Comments:
16-24 units, sliding scale depending on food intake and carbs
atorvastatin 40 MG tablet
40 mg PO HS
fenofibric acid (choline) 135 MG capsule,delayed release(DR/EC)
135 mg PO DAILY
warfarin [Jantoven] 5 MG tablet
2.5 mg PO WETH
warfarin [Jantoven] 5 MG tablet
5 mg PO SUMOTUFRSA
dutasteride [Avodart] 0.5 MG capsule
0.5 mg PO DAILY
hydralazine 50 MG tablet
50 mg PO TID
furosemide 40 MG tablet
40 mg PO BID Qty: 60 2RF
calcitriol 0.25 MCG capsule
0.25 mcg PO SUTUTHSA
sodium bicarbonate 650 mg Tablet
650 mg PO TID
calcitriol 0.5 mcg Capsule
0.5 mcg PO MOWEFR
insulin glargine 100 unit/mL (3 mL) Insulin Pen
28 unit SC HS
Discharge Orders:
Discharge Patient (As Directed); Ordered 12/26/23
Ordered By: Faisal Huerta
Discharge Date and Time
Discharge Date/Time: 12/26/23 12:29
== END 2023-12-26 12:29 | disposition home or self-care (01) ==
LOC: 3 WEST ACU 21:26
PROVIDERS: Physician Assistant; ADMITTING PHYSICIAN Hospitalist; ATTENDING PHYSICIAN Internal Medicine; EMERGENCY PHYSICIAN Emergency Medicine; FAMILY PHYSICIAN Family Medicine; OTHER PHYSICIAN Psychiatry & Neurology Neurology
DX: M50.31 Other cervical disc degeneration, high cervical region (principal); M50.321 Other cervical disc degeneration at C4-C5 level; M50.322 Other cervical disc degeneration at C5-C6 level; M50.323 Other cervical disc degeneration at C6-C7 level; M48.02 Spinal stenosis, cervical region; R53.1 Weakness; R20.0 Anesthesia of skin; I08.0 Rheumatic disorders of both mitral and aortic valves; N18.4 Chronic kidney disease, stage 4 (severe); I50.32 Chronic diastolic (congestive) heart failure; E78.00 Pure hypercholesterolemia, unspecified; I25.10 Atherosclerotic heart disease of native coronary artery without angina pectoris; G47.33 Obstructive sleep apnea (adult) (pediatric); E11.22 Type 2 diabetes mellitus with diabetic chronic kidney disease; E11.319 Type 2 diabetes mellitus with unspecified diabetic retinopathy without macular edema; R42 Dizziness and giddiness; I13.0 Hypertensive heart and chronic kidney disease with heart failure and stage 1 through stage 4 chronic kidney disease, or unspecified chronic kidney disease; I48.0 Paroxysmal atrial fibrillation; N40.0 Benign prostatic hyperplasia without lower urinary tract symptoms; Z95.2 Presence of prosthetic heart valve; Z86.73 Personal history of transient ischemic attack (TIA), and cerebral infarction without residual deficits; Z95.1 Presence of aortocoronary bypass graft; Z79.4 Long term (current) use of insulin; Z79.01 Long term (current) use of anticoagulants; Z91.041 Radiographic dye allergy status; Z87.442 Personal history of urinary calculi
CPT/HCPCS: 70450; 70544; 70548; 70551; 72141; 80048; 80053; 80061; 82607; 82728; 82746; 82962; 83036; 84443; 85025; 85027; 85610; 93005; 97166; 99285; A9585; G0378

== ENCOUNTER → 2024-01-06 12:21 | Outpatient (REF) | payer BC, MEDICARE, SELFPAY ==
[2024-01-06 14:19] LABS: INR 3.13; PT 32.6 Sec (11.4-14.6)
== END ==
LOC: REG 12:21
PROVIDERS: ATTENDING PHYSICIAN Internal Medicine Cardiovascular Disease
DX: I48.0 Paroxysmal atrial fibrillation (principal)
CPT/HCPCS: 36415; 85610

== ENCOUNTER 2024-02-04 23:07 | Inpatient (IN) | payer BC, MEDICARE, SELFPAY ==
[2024-02-04 17:25] VITALS: BP 130/98
[2024-02-04 20:06] VITALS: BP 173/52
[2024-02-04 20:35] LABS: % Basophils 0.5 % (0-2); % Eosinophils 0.9 % (0-6); % Immature Granulocytes 0.6 % (0-0.5); % Lymphocytes 8.9 % (20.5-51.1); % Monocytes 10.7 % (1.7-9.3); % Neutrophils 78.4 % (42.2-75.2); Absolute Basophils 0.1 10^3/uL (0-0.2); Absolute Eosinophils 0.1 10^3/uL (0-0.7); Absolute Immature Granulocytes 0.1 10^3/uL (0-0.05); Absolute Lymphocytes 0.8 10^3/uL (1.2-3.4); Absolute Neutrophils 7.2 10^3/uL (1.4-6.5); Hematocrit 26.4 % (39.0-52.0); Hemoglobin 9.1 g/dL (13.0-18.0); Mean Corp Hgb Conc. 34.5 g/dL (33.0-37.0); Mean Corpuscular Hgb 28.3 pg (27.0-31.0); Mean Corpuscular Volume 82.2 fL (80.0-94.0); Mean Platelet Volume 9.6 fL (7.4-10.4); Nucleated Red Blood Cells % 0 % (-); Platelet Count 385 10^3/uL (130-400); Red Blood Cell Count 3.21 10^6/uL (4.70-6.10); Red Cell Dist. Width 14.3 % (11.5-14.5); White Blood Cell Count 9.2 10^3/uL (4.8-10.8)
[2024-02-04 20:41] LABS: INR 4.41; PT 42.2 Sec (11.4-14.6)
[2024-02-04 20:42] LABS: APTT 57.4 Sec (23.4-35.0)
[2024-02-04 20:47] LABS: NT-proBNP 4010 pg/ml
[2024-02-04 20:53] LABS: ALT (SGPT) 22 U/L (0-50); AST (SGOT) 36 U/L (17-59); Albumin 3.9 g/dl (3.5-5.0); Alkaline Phosphatase 64 U/L (38-126); Blood Urea Nitrogen 65 mg/dl (9-20); Calcium 9.2 mg/dl (8.4-10.2); Carbon Dioxide 21 mmol/L (22-30); Chloride 106 mmol/L (98-107); Glucose 106 mg/dl (70-99); Potassium 4.2 mmol/L (3.5-5.1); Sodium 135 mmol/L (135-145); Total Bilirubin 0.4 mg/dl (0.2-1.3); Total Protein 6.9 g/dl (6.3-8.2); eGFR 12.75
--- NOTE | 2024-02-04 21:22 | ED.GENMED ---
History of Present Illness
General
Chief Complaint: Abnormal Lab Value
Source: patient
Exam Limitations: none
Time Seen by Provider: 02/04/24 18:47
Nursing documentation reviewed up to this point in time: agreed with
Travel History
Have you had any contact with someone who has COVID-19?: No
Do you have any symptoms of coronavirus? Fever > 100 degrees, chills, cough, shortness of breath, sore throat, loss of taste or smell, muscle aches, or headache?: No
History of Present Illness
History of Present Illness:
78-year-old male with a history of aortic stenosis status post an aortic valve replacement, A-fib, CHF, on Coumadin presents for an elevated INR for today. Patient says that he spoke with his on-call high density finishing operator regarding this level and the plan
was to hold it today and tomorrow however they asked him some symptoms and he started saying that he has been wiped out the last couple weeks, he saw a little bit of blood with his stool 2 days ago after having a bowel movement. He does have some
history of hemorrhoids. He has not had any other significant bleeding. He says he has had a cough and congestion and felt like maybe his CHF was worse. He also has exertional dyspnea. Patient is on furosemide 40 mg twice a day. peeing ok
has not had an appetite
He has not had any worsening edema in his legs, exertional chest pain, fever or chills, sore throat.
Past History
Past History
ED Past Medical History: CAD, CHF, HTN, Hypercholesterolemia, IDDM, Valvular disease and Other (JEREMIAH-no CPAP)
ED Past Surgical History: Cardiac (CABG, Aortic valve replaced) and Orthopedic
Social History
Tobacco: Non-smoker
Alcohol: None
Drug: None
Personal:
Living: with family
Employment: Other
Family History
Family History: Other
Phy Exam
Physical Exam
Physical Exam:
GENERAL: Alert , in no apparent distress
EYE: pupils equal and reactive
NECK: Supple
ENT: o/p clr, mmm.
CARDIAC: Regular rate and rhythm .
LUNGS: diminished bsaes, no cough, no resp distress
ABDOMEN: Soft, obese,without focal tenderness, no r/g, no cvat, normal bowel sounds
RECTAL HEME NEG BROWN STOOL
NEUROLOGICAL: Alert and oriented, no focal neuro deficits
SKIN: Warm and dry, skin intact.
MUSCULOSKELETAL: No edema, well perfused. neg suman's sign
PSYCH: Normal and appropriate interaction.
Course
Orders/Labs/Results
Orders:
Orders
02/04/24 Dinner
2000 calorie (17 carb) Diabetic
At Your Request: Full Participation
Diabetic Diet: Sodium, 2 Gram
02/04/24 19:32
Electrocardiogram (*1) Stat
Reason for Study: Other
Other Reason for Exam: chest pain
EKG- Treatment ONCE
CR Chest - 2 Views Urgent
Comment:
Reason For Exam: sob, chf
02/04/24 20:03
Complete Blood Count/With Diff Urgent
Comprehensive Metabolic Panel Urgent
Ferritin Urgent
Comment: ADD ON
Folate Urgent
Comment: ADD ON
Iron Urgent
Comment: ADD ON
NT-proBNP Urgent
PTT Urgent
Prothrombin Time Urgent
TSH Reflex To Free T4 Urgent
Comment: ADD ON
Total Iron Binding Urgent
Comment: ADD ON
Vitamin B12 Urgent
Comment: ADD ON
02/04/24 20:55
Bladder Scan- Treatment ONCE
02/04/24 21:35
Urinalysis Reflex To Culture Urgent
Date Specimen was Collected: 02/04/24
Time Specimen was Collected: 21:23
Urine Microscopic Reflex Cult Urgent
02/04/24 22:17
Add On- LAB Urgent
Tests Added?: TSH w/Reflex
02/04/24 22:21
COVID-19 Antigen Urgent
Source: Nasal Swab
Influenza A+B Rapid Molecular Urgent
MARIE Source: Nasal Swab
Specimen Description:
02/04/24 22:55
Admit/Transfer Patient As Directed
Co-Sign Provider:
Level of Care: Inpatient admission
Assign to:: Telemetry
Physician / Group: Edilberto
Diagnosis: ALBA
Reason for Telemetry: Arrhythmia
Date to Stop Telemetry: 02/07/24
Time to Stop Telemetry: 11:00
Reason for Hospitalization: ALBA
Expected length of stay greater than two midnights?: Yes
ELOS- Estimated Length of Stay in days: 3
I certify the patient meets the requirements for IP care: Yes
02/04/24 22:59
Code Status As Directed
Resuscitation Status: Full Code
02/04/24 23:03
Add On- LAB Routine
Tests Added?: iron, ferritin, tibc, folate, vit b12
02/04/24 23:57
Acetaminophen [Tylenol] 650 mg PO Q4HPRN PRN
Dextrose 50%-Water [Dextrose 50% Syringe] 12.5 grams IV [id number] PRN
Glucagon [GlucaGen] 1 mg IM PRN PRN
02/04/24 23:57
CARDIOLOGY CONSULT Routine
Consulting Provider: Xin Mcdowell
Was physician already notified: No
Reason for consult: Afib - Sent by office for elevated INR
Consult Notification Routine
Specialty to Notify: Cardiology
Activity As Directed
Activity Level: Out of Bed-Early Mobility
With Assistance
Bedside Glucose Monitoring As Directed
Frequency: AC&HS
Comment: Change to q6h if pt on TPN, tube feeding or not eating
I&O [Intake/ Output] As Directed
Frequency: q12h
Pneumatic Compression Sleeves As Directed
Type: Knee high
Vital Signs As Directed
Frequency: Per unit guidelines
Weight As Directed
Frequency: Daily
DX Deep Vein Thrombosis Video Routine
02/05/24 06:00
Basic Metabolic Panel IN AM
Complete Blood Count/No Diff IN AM
Glycohemoglobin (HgbA1c) IN AM
Magnesium IN AM
Prothrombin Time IN AM
02/05/24 07:30
Insulin Aspart Corrective Mod [Novolog Flexpen-Moderate Resistance] See Protocol SC AC
Insulin Aspart High Resistance [Novolog Flexpen-High Resistance] DOSE units SC AC
02/05/24 08:00
Amlodipine [Norvasc] 10 mg PO DAILY
Fenofibrate 145 [Tricor] 145 mg PO DAILY
Finasteride [Proscar] 5 mg PO DAILY
HydrALAZINE [Apresoline] 50 mg PO TID
Sodium Bicarbonate 650 mg PO TID
02/05/24 22:00
Atorvastatin [Lipitor] 40 mg PO HS
02/05/24 22:55
Calcitriol [Rocaltrol] 0.25 mcg PO SUTUTHSA
02/07/24 08:00
Calcitriol [Rocaltrol] 0.5 mcg PO MOWEFR
02/07/24 11:00
DC Protocol for Telemetry ONCE
Abnormal Lab Results
02/04/24 02/04/24 02/04/24
20:03 21:35 21:37
RBC 3.21 L 10^6/uL
(4.70-6.10)
Hgb 9.1 L g/dL
(13.0-18.0)
Hct 26.4 L %
(39.0-52.0)
Abs Immat Gran (auto) 0.1 H 10^3/uL
(0-0.05)
Absolute Neuts (auto) 7.2 H 10^3/uL
(1.4-6.5)
Absolute Lymphs (auto) 0.8 L 10^3/uL
(1.2-3.4)
Absolute Monos (auto) 1.0 H 10^3/uL
(0.1-0.6)
Immature Gran % 0.6 H %
(0-0.5)
Neutrophils % 78.4 H %
(42.2-75.2)
Lymphocytes % 8.9 L %
(20.5-51.1)
Monocytes % 10.7 H %
(1.7-9.3)
PT 42.2 H Sec
(11.4-14.6)
APTT 57.4 H Sec
(23.4-35.0)
Carbon Dioxide 21 L mmol/L
(22-30)
BUN 65 H mg/dl
(9-20)
Creatinine 4.5 H* mg/dL
(0.7-1.3)
Glucose 106 H mg/dl
(70-99)
Iron 46 L ug/dl
(49-181)
% Saturation 13 L %
(20-50)
Ur Occult Blood Reflex Trace A
(Negative)
Urine Albumin (Reflex) 1+ A
(Neg - Trace)
POC Glucose 120 H mg/dl
(70-99)
02/04/24 20:03
02/04/24 20:03
Vital Signs
Initial and Last Documented VS:
Initial Vital Signs
Temp Pulse Resp BP Pulse Ox
97.5 F 86 16 130/98 97
02/04/24 17:25 02/04/24 17:25 02/04/24 17:25 02/04/24 17:25 02/04/24 17:25
Last Documented Vital Signs
Temp Pulse Resp BP Pulse Ox
98.3 F 79 20 168/63 96
02/05/24 00:06 02/05/24 00:06 02/05/24 00:06 02/05/24 00:06 02/05/24 00:06
MDM/Problems Addressed
Differential Diagnosis Includes:
coagulaopathy, PNA, flu, renal failure, chf
MDM/Problems Addressed:
78 y/o M with h/o AVR on coumadin, afib, chf or lasix, IDDM, CKD; here with 2 weeks fatigue, exertional dyspnea, cough; was caled by his cards today with elevated INR 4, reported rectal bleeding 2 days ago; no active bleeding, heme neg stool; has
some crackles in bases and has ALBA, cr to 4.5 from 3;
fatigued with walking, wiped out
PVR 70 ml
ua sent
could be prerenal dehhdration
*Critical Care Note
Total Time (30-74mins, 75-104mins- exclusive of procedures): Not Applicable
ED Attending Note
-
Portions of this chart may have been created with voice recognition software.� Occasional wrong word or��sound alike� substitutions may have occurred due to the inherent limitations of voice recognition software.
Discharge Plan
Departure
Patient Disposition: Admit
Date of Disposition: 02/04/24
Time of Disposition: 21:25
Presentation/result/management discussed w/ accepting MD/DO: Hospitalist
Condition: Fair
Covid-19: Not Applicable
Discharge Problem:
ALBA (acute kidney injury), Exertional dyspnea, Coagulopathy
Interventions
Interventions:
*Risk Screen - Suicide Last Done: 02/04/24 17:25
*General Assessment Last Done: 02/04/24 17:25
*Neglect/Abuse Screening Last Done: 02/04/24 17:25
ED- Fall Risk Assessment Last Done: 02/04/24 23:30
*ED COVID-19 Vaccine History Last Done: 02/05/24 00:00
*Nursing Disposition Last Done: 02/04/24 23:40
Discharge Date and Time
Discharge Date/Time: 02/04/24 23:40
[2024-02-04 21:32] VITALS: BP 114/84
[2024-02-04 21:39] LABS: Glucose - Point of Care 120 mg/dl (70-99)
[2024-02-04 21:52] LABS: Urine Albumin 1+ (Neg - Trace); Urine Bilirubin Negative (Negative); Urine Character Clear (Clear); Urine Color Yellow; Urine Glucose Negative (Negative); Urine Ketone Negative (Negative); Urine Leukocyte Negative (Negative); Urine Nitrite Negative (Negative); Urine Occult Blood Trace (Negative); Urine Specific Gravity 1.005 (<1.030); Urine Urobilinogen Negative (Neg - 1+)
[2024-02-04 22:09] LABS: Urine Red Blood Cell 0-2 /HPF (0-2); Urine White Cell 0-2 /HPF (0-5)
[2024-02-04 22:23] VITALS: BP 178/61
[2024-02-04 22:41] LABS: COVID-19 Antigen Negative (Negative)
--- NOTE | 2024-02-04 23:04 | HPS.HSE ---
Addendum entered and electronically signed by Raffy Casanova DO 02/05/24 00:03:
Patient seen and examined independently. Agree with findings and plan as set forth by Anamika Bennett PA-C.
Patient is a 78y M with PMH significant for aortic stenosis s/p valve replacement x 2, PA-Fib and chronic HFpEF who presents to ED at the direction of his Dock Boss for high INR. Patient states that he had his INR tested today and it was 4.9.
He was advised to present to the ED. Patient states that he had some rectal bleeding with a BM 2 days ago, but none since that time.
He complains of feeling 'lousy' for the past several days including fatigue, chest congestion and cough.
Patient notes that he lost 6 pounds in the past week and poor appetite.
Ass:
ALBA on CKD IV
Paroxysmal Atrial Fibrillation
Coumadin Coagulopathy
AV Block (1st Degree and Mobitz I)
Hemorrhoids with Bleeding
Chronic HFpEF
Benign Hypertension
DM-II
Anemia of Chronic Disease
ASCVD
Aortic Stenosis s/p Valve Replacement
Plan:
Admit for further evaluation and treatment.
Hold Coumadin and follow INR - resume when appropriate.
Monitor for any further evidence of bleeding (none at present).
Monitor on telemetry.
Cardiology evaluation.
Has 1st degree AV block with periods of Mobitz I - has had similar on prior EKGs. No significant bradycardia, pauses or higher degree blocks.
Hold diuretics acutely and monitor renal function - suspect hypovolemia given 6 lbs weight loss in the past week.
Continue other usual outpatient medications.
Original Note:
Family Physician
-
Family Physician: Arlene Roman
Chief Complaint
-
Elevated INR
History of Present Illness
Patient is a 78 y/o male with PMH of aortic stenosis s/p bioprosthetic aortic valve replacement, paroxysmal atrial fibrillation on Coumadin, HFpEF, hypertension, CKD stage IV, and insulin-dependent type II diabetes who presented to the ED for an
elevated INR. Patient had his routine INR measurement this afternoon which revealed level of 4.9. He then received a call from his manufacturing technology analyst office (Dr. Pineda) telling him to hold his daily Coumadin and present to the ED. Patient also admits to
PND x 1 month, dyspnea on exertion x few weeks, fatigue x 1 week, chest congestion and productive cough x few days (thick, clear sputum), and chills and wheezing last night. He denies fever, orthopnea, or lower extremity edema. Patient weighs
himself daily and admits recent 6 lb weight loss associated with poor appetite over the past week. Patient reports a few days ago he had a bowel movement and noted the toilet was full of blood. He reports known hemorrhoids so he did not think much
of the event, and there were no subsequent episodes.
Medical History
Past Medical History
Past Medical History: Reports Other
Additional Past Medical History:
Carotid Artery Stenosis s/p Right ICA Stent
Paroxysmal Atrial Fibrillation
Aortic Stenosis s/p
Moderate Mitral Regurgitation
Chronic HFpEF
Essential Hypertension
Hyperlipidemia
Diabetes Mellitus, Type II
CKD Stage IV
BPH
TIA
Past Surgical History: Reports Other
Additional Past Surgical History:
Bioprosthetic Aortic Valve Replacement Redo
Right ICA Stent
Social History
Tobacco: Non-smoker
Family History
Family History: Not pertinent
Allergies / Home Medications
Allergies reflects when Allergies were last updated in [facility].
Home Medications with original date entered in [facility]
Allergy/Medication List:
Allergies
Allergy/AdvReac Type Severity Reaction Status Date / Time
Iodinated Contrast Media Allergy severe Verified 02/04/24 17:25
[IV Dye, Iodine Containing] joint pain
Home Medications
amlodipine 10 mg tablet 10 mg PO DAILY Blood pressure 06/11/15
insulin aspart U-100 100 unit/mL (3 mL) subcutaneous pen (Novolog FlexPen U-100 Insulin aspart) 16 - 24 sliding scale dose SC AC Diabetes 08/13/17
atorvastatin 40 mg tablet 40 mg PO HS High cholesterol 06/28/19
fenofibric acid (choline) 135 mg capsule,delayed release 135 mg PO DAILY High cholesterol 06/28/19
dutasteride 0.5 mg capsule (Avodart) 0.5 mg PO DAILY Urinary issue 11/06/20
warfarin 5 mg tablet (Jantoven) 2.5 mg PO WETH Blood clot prevention/tx 11/06/20
warfarin 5 mg tablet (Jantoven) 5 mg PO SUMOTUFRSA Blood clot prevention/tx 11/06/20
hydralazine 50 mg tablet 50 mg PO TID Heart disease/condition 05/20/21
furosemide 40 mg tablet 40 mg PO BID Fluid retention/Swelling #60 tabs 10/22/21
calcitriol 0.25 mcg capsule 0.25 mcg PO SUTUTHSA Kidney Disease 01/29/22
sodium bicarbonate 650 mg tablet 650 mg PO TID Electrolyte Repletion 08/12/22
calcitriol 0.5 mcg capsule 0.5 mcg PO MOWEFR Kidney Disease 12/23/23
insulin glargine 100 unit/mL (3 mL) subcutaneous pen 28 unit SC HS Diabetes 12/23/23
Review of Systems
-
A 12 point ROS was completed and negative except as noted: Yes
Constitutional: Reports Chills; Denies Fever
Respiratory: Reports Cough and Trouble Breathing (Dyspnea on Exertion)
Cardiac: Denies Chest Pain or Palpitations
Musculoskeletal: Denies Edema
Physical Exam
Vital Signs
Vital Signs
Temp Pulse Resp BP Pulse Ox
97.5 F 63 16 178/61 97
02/04/24 17:25 02/04/24 22:23 02/04/24 22:23 02/04/24 22:23 02/04/24 22:23
Physical Exam
General: Comfortable and Conversant
HEENT: NormoCephalic, Atraumatic and Other (Mask covering nose and mouth )
Respiratory: Clear, Decreased Breath Sounds and Other (Cough noted)
Cardiac: S1/S2, Regular Rhythm and Murmur
GI: Soft and Non Tender
Rectal: Deferred by Provider
Musculoskeletal: No Clubbing, No Cyanosis and No Edema
Skin: Warm and Dry
Neuro: Awake, Alert, Oriented and Nonfocal/grossly intact
Laboratory Results
-
02/04/24 20:03
02/04/24 20:03
Laboratory Results
PT 42.2 Sec (11.4-14.6) H 02/04/24 20:03
INR 4.41 02/04/24 20:03
APTT 57.4 Sec (23.4-35.0) H 02/04/24 20:03
Total Bilirubin 0.4 mg/dl (0.2-1.3) 02/04/24 20:03
AST 36 U/L (17-59) 02/04/24 20:03
ALT 22 U/L (0-50) 02/04/24 20:03
Alkaline Phosphatase 64 U/L (38-126) 02/04/24 20:03
Data Reviewed
-
Diagnostic Radiology: Report Reviewed by me
Lab Data: Labs Reviewed by me
Impression/Plan
-
ALBA on CKD Stage IV
-Likely related to poor oral intake over the last week
-Hold furosemide
-Recheck creatinine in AM
Paroxysmal Atrial Fibrillation
-INR elevated - Hold Coumadin - Recheck INR in AM
Heart Block (1st degree / Mobitz I)
-Reviewed multiple previous ECGs - Patient appears to flip between 1st degree and Mobitz Type I
-Monitor on Telemetry
Hemorrhoidal Bleeding
-Patient reports one episode of rectal bleeding two days ago after a bowel without recurrence of symptoms.
-Recheck Hgb in AM
-Monitor for recurrence
Chronic HFpEF
-Lasix on hold in setting of ALBA
-Monitor Is&Os and Daily Weights
Essential Hypertension
-Continue amlodipine
Hyperlipidemia
-Continue atorvastatin and fenofibric acid
Diabetes Mellitus, Type II
-Continue glargine, and NovoLog 70/30
-Monitor sugars and continue coverage insulin
CKD Stage IV
-Continue calcitriol and sodium bicarbonate
Anemia of Chronic Disease
-Check iron studies, vitamin b12 and folate
BPH
-Continue Avodart
Hx Carotid Artery Stenosis s/p Right ICA Stent
Hx Aortic Stenosis s/p Bioprosthetic Aortic Valve Replacement
DVT Proph: SCDs
Code Status: Full Code
[2024-02-04 23:32] LABS: Iron 46 ug/dl (49-181)
[2024-02-04 23:40] VITALS: BP 178/61
[2024-02-04 23:40] LABS: Percent Saturation 13 % (20-50); Total Iron Binding Capacity 350 ug/dl (261-462)
[2024-02-04 23:59] LABS: TSH Reflex To Free T4 1.62 uIU/ml (0.47-4.68)
[2024-02-05] VITALS (9 sets, daily range): BP systolic 143–174; BP diastolic 58–74; BMI 30.4
[2024-02-05 00:21] LABS: Glucose - Point of Care 338 mg/dl (70-99)
[2024-02-05 01:21] LABS: Folate 18.2 ng/ml (2.76-20); Vitamin B12 444 pg/ml (239-931)
[2024-02-05] MEDS: LANTUS 0.280000000000000027 UNITS SC ×2 (01:48→21:53)
[2024-02-05 05:22] LABS: Glucose - Point of Care 170 mg/dl (70-99)
--- NOTE | 2024-02-05 06:15 | PTCARENOTE ---
Addendum entered by Rylee Montes RN 02/05/24 06:19:
Admission note- pt received from ER AAOX3 able to make his needs known. Oriented to room & call guererro in reach.Pt refused for CHF folder. Pt encouraged to use urinal for I/o. ORDNANCE ENGINEERING TECHNICIAN revenue enforcement collection agent made aware of pt lab results. No new orders noted. Pt BSL 338
overnight. Pt refused for novolog, prefers lantus only over night.DETASSELER aware.Call guerrero in reach.
Original Note:
Pt HR on telemetry noted with 40-50 ringing sinus cydney. pt sleeping at this time.Pt has hx of sleep apnea. Pt VSS.EKG done on pt reads sinus rhythm with second degree AV block. ORDNANCE ENGINEERING TECHNICIAN revenue enforcement collection agent made aware of it.Pt asymptomatic otherwise. No new orders
from DETASSELER. Plan of care continued.
--- NOTE | 2024-02-05 06:47 | W.PN.UPDATE ---
Update Note
Progress Note Update
RN notified OBSTETRICAL ANESTHESIOLOGIST of EKG changes from previous, Patient is asymptomatic with stable VS, 156/67, 65, 18, 95% RA, Dr. Lauren made aware. advised to hold any beta blockers this AM. patient not on any beta blockers.
[2024-02-05 07:15] LABS: Hematocrit 24.8 % (39.0-52.0); Hemoglobin 8.3 g/dL (13.0-18.0); Mean Corp Hgb Conc. 33.5 g/dL (33.0-37.0); Mean Corpuscular Hgb 28.4 pg (27.0-31.0); Mean Corpuscular Volume 84.9 fL (80.0-94.0); Platelet Count 351 10^3/uL (130-400); Red Blood Cell Count 2.92 10^6/uL (4.70-6.10); Red Cell Dist. Width 14.1 % (11.5-14.5)
[2024-02-05 07:21] LABS: PT 33.6 Sec (11.4-14.6)
[2024-02-05 07:22] LABS: INR 3.31
[2024-02-05 07:37] LABS: Glucose - Point of Care 97 mg/dl (70-99)
[2024-02-05 07:49] LABS: Blood Urea Nitrogen 62 mg/dl (9-20); Calcium 8.8 mg/dl (8.4-10.2); Carbon Dioxide 21 mmol/L (22-30); Chloride 106 mmol/L (98-107); Estimated Creatinine Clearance 16 ml/min; Glucose 121 mg/dl (70-99); Magnesium 2.4 mg/dl (1.6-2.3); Potassium 3.9 mmol/L (3.5-5.1); Sodium 135 mmol/L (135-145); eGFR 13.47
[2024-02-05] MEDS: NOVOLOG FLEXPEN-MODERATE RESISTANCE SC (08:20)
[2024-02-05] MEDS: TRICOR 145 MG PO (08:21)
[2024-02-05] MEDS: SODIUM BICARBONATE 650 MG PO ×3 (08:21→21:53)
[2024-02-05] MEDS: PROSCAR 5 MG PO (08:21)
[2024-02-05] MEDS: NORVASC 10 MG PO (08:21)
[2024-02-05] MEDS: APRESOLINE 50 MG PO ×2 (08:22→17:16)
[2024-02-05] MEDS: ROCALTROL 0.25 MCG PO (08:24)
[2024-02-05 09:39] LABS: Glycohemoglobin (HgbA1c) 6.9 % (4.0-5.6)
--- NOTE | 2024-02-05 10:21 | W.PN.HOSP.TC ---
Today's Communication/Plan
-
see bold
Assessment / Plan
Assessment / Plan
Gen: NAD, AAOx3.
Eyes: EOMI, PERRLA, no scleral icterus.
Neck: supple.
CV: irreg/irreg, +S1/S2, 2/6 MIGUEL
Resp: CTAB, no rales, wheezes, or rhonchi.
Abd: +BS, soft, NT, ND
Skin: No rashes.
Neuro: CN 2-12 intact, non-focal.
Psych: Normal mood and affect.
CXR: Moderate cardiomegaly, without significant change. No superimposed acute cardiopulmonary process appreciated.
ALBA on CKD4:
-Likely related to poor oral intake over the week POLICE CADET
-Holding furosemide
-start NS @ 50cc/hr
-Continue calcitriol and sodium bicarbonate
Paroxysmal Atrial Fibrillation:
-INR elevated (Coumadin coagulopathy)
-Holding Coumadin, trend INR
Heart Block (1st degree / Mobitz I)
-Reviewed multiple previous ECGs - Patient appears to flip between 1st degree and Mobitz Type I
-Monitor on Telemetry
Hemorrhoidal Bleeding:
-Patient reports one episode of rectal bleeding two days POLICE CADET after a bowel movement without recurrence of symptoms.�
-cont to trend Hb
Chronic HFpEF
-Lasix on hold with ALBA
-Monitor Is&Os and Daily Weights
Essential Hypertension
-Continue amlodipine
Hyperlipidemia
-Continue atorvastatin and fenofibric acid
Diabetes Mellitus, Type II
-Continue glargine, and NovoLog 70/30
-Monitor sugars and continue coverage insulin
Anemia of Chronic Disease:
-Fe slightly low, B12/folate normal
-IV Ferrlecit
BPH
-Continue Avodart
Hx Carotid Artery Stenosis s/p Right ICA Stent
Hx Aortic Stenosis s/p Bioprosthetic Aortic Valve Replacement
FULL/SCDs
Anticipated Discharge: 24 - 48 hours
Subjective/Interval History
-
Date of Service: February 05, 2024
Denies CP/SOB.
Objective Data
-
Labs:
Laboratory Results
02/05/24
06:06
WBC 7.0
Hgb 8.3 L
Hct 24.8 L
Plt Count 351
PT 33.6 H
INR 3.31
Sodium 135
Potassium 3.9
Chloride 106
Carbon Dioxide 21 L
BUN 62 H
Creatinine 4.3 H*
Glucose 121 H
Calcium 8.8
Vital Signs:
Vital Signs
Temp Pulse Resp BP Pulse Ox
98.1 F 57 20 166/60 95
02/05/24 07:35 02/05/24 08:21 02/05/24 07:35 02/05/24 08:21 02/05/24 07:35
I&O
02/04/24 02/05/24 02/06/24
06:59 06:59 07:59
Intake Total 120 / 120
Output Total 225 / 225
Balance -105 / -105
--- NOTE | 2024-02-05 10:52 | CON.CAR ---
Addendum entered and electronically signed by Xin Mcdowell MD 02/05/24 13:05:
Patient was seen and evaluated personally. I agree with the documentation, physical examination, plan of care as documented below.
78-year-old gentleman with history of bioprosthetic aortic valve with chronic HFpEF, paroxysmal A-fib on warfarin, CKD 4, PAD, with history of Mobitz 1 second-degree AV block who was previously noted to have faster rates with second-degree AV block
but has now presented with symptomatic bradycardia with heart rate going down to 40s to 50s with exertional symptoms and was noted to have supratherapeutic INR with GI bleeding.
Patient symptoms of lethargy weakness and shortness of breath could be related to GI blood loss. Patient's hemoglobin is 8.3 with GI bleeding.
Patient's heart rate despite being severe anemic is bradycardic and not able to increase appropriately. At this time patient bradycardia asymptomatic but will reevaluate over the weekend once hemoglobin improves. We will obtain an echocardiogram
again on Wednesday.
If this is clear symptomatic bradycardia, he may get benefit from pacemaker. we will decide on Wednesday.
Original Note:
Consultation
Consultation Request
Date/Time Consultation Requested: 02/04/24 11:55p
Date/Time Consultation Performed: 02/05/24 10a
Requesting Provider: Anamika Bennett PA-C
Performing Provider: JOSE Camejo for Dr. Mcdowell
Reason for Consultation: Afib, supratherapeutic INR, rectal bleeding
Medical History
-
Chief Complaint: supratherapeutic INR 4.9, rectal bleeding
History of Present Illness:
Mr. 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
2018), chronic HFpEF, paroxysmal atrial fibrillation on Coumadin, anemia followed by Dr. Garcia, PAD (moderate carotid artery disease followed by Dr. Rees), CKD4, Mobitz I second degree AVB, and TIA, who presents to the ER from home due to
supratherapeutic INR of 4.9 as an outpatient and he admitted to bloody stools (he thinks from his hemorrhoids). �He is admitted to the hospitalist service and we are consulted for bradycardia and supratherapeutic INR on Warfarin as our office
manages his Warfarin. EKG SR with 2nd degree AVB Aniceto 1 with rate 58 bpm and he admits to feeling SOB and fatigue, especially with exertion. Tele with SR/SB 50s-60s.
Past Medical History
Past Medical History: Other (as above)
Past Surgical History: Other (AVR mechanical then bio. hernia, cataracts, wrist.)
Social History
Tobacco: Former Smoker
Alcohol: None
Personal:
Living: With Family
Family History
Family History: CAD (father of AL)
Allergies / Home Medications
Allergy/AdvReac Type Severity Reaction Status Date / Time
Iodinated Contrast Media Allergy severe Verified 02/04/24 17:25
[IV Dye, Iodine Containing] joint pain
Medication Instructions Recorded Confirmed Type
amlodipine 10 mg tablet 10 mg PO DAILY Blood pressure 06/11/15 02/04/24 History
insulin aspart U-100 100 unit/mL 16 - 24 sliding scale dose SC AC 08/13/17 02/04/24 History
(3 mL) subcutaneous pen (Novolog Diabetes
FlexPen U-100 Insulin aspart)
atorvastatin 40 mg tablet 40 mg PO HS High cholesterol 06/28/19 02/04/24 History
fenofibric acid (choline) 135 mg 135 mg PO DAILY High cholesterol 06/28/19 02/04/24 History
capsule,delayed release
dutasteride 0.5 mg capsule 0.5 mg PO DAILY Urinary issue 11/06/20 02/04/24 History
(Avodart)
warfarin 5 mg tablet (Jantoven) 2.5 mg PO WETH Blood clot 11/06/20 02/04/24 History
prevention/tx
warfarin 5 mg tablet (Jantoven) 5 mg PO SUMOTUFRSA Blood clot 11/06/20 02/04/24 History
prevention/tx
hydralazine 50 mg tablet 50 mg PO TID Heart 05/20/21 02/04/24 History
disease/condition
furosemide 40 mg tablet 40 mg PO BID Fluid 10/22/21 02/04/24 Rx
retention/Swelling #60 tabs
calcitriol 0.25 mcg capsule 0.25 mcg PO SUTUTHSA Kidney Disease 01/29/22 02/04/24 History
sodium bicarbonate 650 mg tablet 650 mg PO TID Electrolyte Repletion 08/12/22 02/04/24 History
calcitriol 0.5 mcg capsule 0.5 mcg PO MOWEFR Kidney Disease 12/23/23 02/04/24 History
insulin glargine 100 unit/mL (3 28 unit SC HS Diabetes 12/23/23 02/04/24 History
mL) subcutaneous pen
Review of Systems
-
History Source: Patient
All other systems: Negative unless noted
Physical Exam
Vital Signs
Temp Pulse Resp BP Pulse Ox
98.1 F 57 20 166/60 95
02/05/24 07:35 02/05/24 08:21 02/05/24 07:35 02/05/24 08:21 02/05/24 07:35
Lab Results
02/05/24 06:06
02/05/24 06:06
Foc-G-Ocernuwckvu Pept 4010 pg/ml 02/04/24 20:03
Physical Exam
General: Well Developed, Well Nourished and No Apparent Distress
HEENT: Normocephalic, Anicteric and Moist Mucous Membranes
Respiratory: Clear and Non Labored Respirations
Cardiac: S1/S2, Regular Rhythm and Murmur (soft 2/6 MIGUEL)
Breast: Deferred by me
GI: Soft, Non Distended and Normal Bowel Sounds
Rectal: Deferred by Provider
Musculoskeletal: No Clubbing and No Cyanosis
Skin: Warm and Dry
Neuro: AO x 3
Hematologic/Lymphatic: No Lymphadenopathy
Psych: Calm
Impression / Plan
-
Bradycardia - 50s-60s on tele.
- symptoms of SOB and fatigue with exertion.
- has known Mobitz I, but now pulse is slow.
- EP evaluation by Dr. Mcdowell, possible PPM on Wednesday02/07/24.
- will check echo Wednesday02/07/24.
Supratherapeutic INR - 4.9 on 02/04/24.
- holding Warfarin and monitor INR.
- INR 3.31 today.
- he admitted to bloody stools though reports having hemorrhoids, monitor.
Afib - paroxysmal.
- in SB/SR on tele.
- INR 4.9 on admit, holding Warfarin for now.
- follow INR.
Bio AVR - stable on echo.
- check echo 02/07/24.
- multiple outpatient echoes have been ordered since last echo 2020, but he has not completed them.
HTN - stable on Norvasc, Hydralazine.
HLD - stable on Lipitor, continue.
HFpEF - chronic.
- given ALBA, hold outpatient Lasix.
Anemia - acute on chronic.
- mild bloody stools per patient.
- follow Hgb and INR.
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
- followed by Dr. Durbin as outpatient.
- creatinine 4.5 on admit.
- per nephrology.
DM - insulin, per hospitalist.
Data Reviewed
-
EKG: Tracing Personally Visualized and interpreted (SR with 2nd degree AVB Mobitz 1 with rate 58 bpm)
Radiology: Report Reviewed by me (cxr: nad)
Medical Tests (Nuc Med, Echo etc): Report Reviewed by me (echo 09/2021: EF 60-65%, moderate MR, bio AVR peak/mean gradients 32/19 mmHg, mild TR.)
Labs: Labs Reviewed by me
Old Records: Reviewed
[2024-02-05 12:02] LABS: Glucose - Point of Care 176 mg/dl (70-99)
[2024-02-05] MEDS: NOVOLOG FLEXPEN-MODERATE RESISTANCE 1 UNITS SC (12:58)
[2024-02-05] MEDS: NSS 1000 IV (12:59)
[2024-02-05] MEDS: FERRLECIT 110 MG IV (14:33)
[2024-02-05 17:11] LABS: Glucose - Point of Care 235 mg/dl (70-99)
[2024-02-05] MEDS: NOVOLOG FLEXPEN-MODERATE RESISTANCE 3 UNITS SC (17:48)
[2024-02-05 20:01] LABS: Hemoglobin 8.3 g/dL (13.0-18.0)
--- NOTE | 2024-02-05 20:44 | W.PN.UPDATE ---
Update Note
Progress Note Update
RN reports pt hypertensive with sbp 160-170s. Pt states hydralazine dosing is incorrect in chart. At home he is on 75mg TID not 50mg TID
[2024-02-05 21:11] LABS: Glucose - Point of Care 202 mg/dl (70-99)
[2024-02-05] MEDS: APRESOLINE 75 MG PO (21:54)
[2024-02-05] MEDS: LIPITOR 40 MG PO (21:54)
[2024-02-06] VITALS (7 sets, daily range): BP systolic 148–175; BP diastolic 55–68; BMI 30.3
[2024-02-06 03:54] LABS: Glucose - Point of Care 59 mg/dl (70-99)
--- NOTE | 2024-02-06 04:20 | PTCARENOTE ---
0352: Pt stating weakness stating ' i feel like my sugar is low'- glucose 59- pt given OJ per protocol. Rechecked 116.
[2024-02-06 04:25] LABS: Glucose - Point of Care 116 mg/dl (70-99)
[2024-02-06] MEDS: NSS 1000 IV (05:35)
[2024-02-06 06:24] LABS: Glucose - Point of Care 106 mg/dl (70-99)
[2024-02-06 06:41] LABS: Hematocrit 24.4 % (39.0-52.0); Hemoglobin 8.2 g/dL (13.0-18.0); Mean Corp Hgb Conc. 33.6 g/dL (33.0-37.0); Mean Corpuscular Hgb 28.2 pg (27.0-31.0); Mean Corpuscular Volume 83.8 fL (80.0-94.0); Mean Platelet Volume 9.4 fL (7.4-10.4); Platelet Count 323 10^3/uL (130-400); Red Blood Cell Count 2.91 10^6/uL (4.70-6.10); Red Cell Dist. Width 14.2 % (11.5-14.5); White Blood Cell Count 8.7 10^3/uL (4.8-10.8)
[2024-02-06 07:06] LABS: Blood Urea Nitrogen 59 mg/dl (9-20); Calcium 8.9 mg/dl (8.4-10.2); Carbon Dioxide 23 mmol/L (22-30); Chloride 107 mmol/L (98-107); Estimated Creatinine Clearance 20 ml/min; Glucose 96 mg/dl (70-99); Potassium 4.2 mmol/L (3.5-5.1); Sodium 138 mmol/L (135-145); eGFR 17.24
[2024-02-06 08:12] LABS: Glucose - Point of Care 79 mg/dl (70-99)
[2024-02-06] MEDS: NOVOLOG FLEXPEN-MODERATE RESISTANCE SC (08:26)
[2024-02-06] MEDS: APRESOLINE 75 MG PO ×3 (08:27→22:32)
[2024-02-06] MEDS: NORVASC 10 MG PO (08:30)
[2024-02-06] MEDS: PROSCAR 5 MG PO (08:30)
[2024-02-06] MEDS: ROCALTROL 0.25 MCG PO (08:30)
[2024-02-06] MEDS: SODIUM BICARBONATE 650 MG PO ×3 (08:31→22:33)
[2024-02-06] MEDS: TRICOR 145 MG PO (08:31)
--- NOTE | 2024-02-06 09:40 | W.PN.HOSP.TC ---
Today's Communication/Plan
-
see bold
Assessment / Plan
Assessment / Plan
Gen: NAD, AAOx3.
Eyes: EOMI, PERRLA, no scleral icterus.
Neck: supple.
CV: remains irreg/irreg, +S1/S2, 2/6 MIGUEL
Resp: remains CTAB, no rales, wheezes, or rhonchi.
Abd: remains +BS, soft, NT, ND
Skin: No rashes.
Neuro: CN 2-12 intact, non-focal.
Psych: Normal mood and affect.
CXR: Moderate cardiomegaly, without significant change. No superimposed acute cardiopulmonary process appreciated.
ALBA on CKD4:
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
-Holding furosemide
-cont NS @ 50cc/hr through 1999 today, Cr improving
-Continue calcitriol and sodium bicarbonate
Paroxysmal Atrial Fibrillation:
-INR elevated (Coumadin coagulopathy)
-Holding Coumadin, trend INR
Heart Block (1st degree / Mobitz I)
-Reviewed multiple previous ECGs - Patient appears to flip between 1st degree and Mobitz Type I
-Monitor on Telemetry
-case discussed with cardiology on 02/05/24. Decision regarding PPM will be made by 02/07/24AM.
Hemorrhoidal Bleeding:
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
-cont to trend Hb (currently stable)
Chronic HFpEF
-Lasix on hold with ALBA
-Monitor Is&Os and Daily Weights
Essential Hypertension
-Continue amlodipine
Hyperlipidemia
-Continue atorvastatin and fenofibric acid
Diabetes Mellitus, Type II
-Continue glargine/SSI/accuchecks
Anemia of Chronic Disease:
-Fe slightly low, B12/folate normal
-cont IV Ferrlecit
BPH
-Continue Avodart
Hx Carotid Artery Stenosis s/p Right ICA Stent
Hx Aortic Stenosis s/p Bioprosthetic Aortic Valve Replacement
FULL/SCDs
Anticipated Discharge: 24 - 48 hours
Subjective/Interval History
-
Date of Service: February 06, 2024
Denies CP/SOB.
Objective Data
-
Labs:
Laboratory Results
02/06/24
06:27
WBC 8.7
Hgb 8.2 L
Hct 24.4 L
Plt Count 323
Sodium 138
Potassium 4.2
Chloride 107
Carbon Dioxide 23
BUN 59 H
Creatinine 3.5 H
Glucose 96
Calcium 8.9
Vital Signs:
Vital Signs
Temp Pulse Resp BP Pulse Ox
97.9 F 57 16 148/55 100
02/06/24 07:30 02/06/24 07:30 02/06/24 07:30 02/06/24 07:30 02/06/24 07:30
I&O
02/05/24 02/06/24 02/07/24
05:59 06:59 06:59
Intake Total
Output Total
Balance
--- NOTE | 2024-02-06 09:50 | W.PN.CD ---
Today's Communication / Plan
-
- NPO after midnight
- PPM tomorrow.
Impression / Plan
-
Bradycardia - 40s-50s on tele.
- symptoms of SOB and fatigue with exertion.
- has known Aniceto I, but now pulse is slow.
- Even the slow heart rates are conducted with Kian now.
- possible PPM on Wednesday02/07/24.
- will check echo Wednesday02/07/24.
Supratherapeutic INR - 4.9 on 02/04/24.
- holding Warfarin and monitor INR.
- INR 2.28 today.
- he admitted to bloody stools though reports having hemorrhoids, monitor.
Afib - paroxysmal.
- in SB/SR on tele.
- INR 4.9 on admit, holding Warfarin for now.
- follow INR.
- Likely restart after PPM implant.
Bio AVR - stable on echo.
- check echo 02/07/24.
- multiple outpatient echoes have been ordered since last echo 2020, but he has not completed them.
HTN - stable on Norvasc, Hydralazine.
HLD - stable on Lipitor, continue.
HFpEF - chronic.
- given ALBA, hold outpatient Lasix.
- Cr was 4.5 at arrival - now coming down - 3.5 today (baseline ~ 3.0)
Anemia - acute on chronic.
- mild bloody stools per patient.
- follow Hgb and INR.
- Hgb is stable now.
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
- followed by Dr. Durbin as outpatient.
- creatinine 4.5 on admit.
- per nephrology.
DM - insulin, per hospitalist.
Physical Exam
Vital Signs/Labs
Vital Signs
Temp Pulse Resp BP Pulse Ox
97.9 F 57 16 148/55 100
02/06/24 07:30 02/06/24 07:30 02/06/24 07:30 02/06/24 07:30 02/06/24 07:30
02/05/24 02/06/24 02/07/24
05:59 06:59 06:59
Actual Weight
02/06/24 06:27
02/06/24 06:27
PT 33.6 Sec (11.4-14.6) H 02/05/24 06:06
INR 3.31 02/05/24 06:06
APTT 57.4 Sec (23.4-35.0) H 02/04/24 20:03
Magnesium 2.4 mg/dl (1.6-2.3) H 02/05/24 06:06
02/04/24
20:03
Emi-Z-Zzxciuwctjy Pept 4010
Physical Exam
Constitutional: No acute distress and Comfortable
EENT: Anicteric and Moist mucous membranes
Cardiovascular: JVD pressure is normal, Rhythm/rate is irregular and Systolic murmur present
Respiratory: Respiratory effort normal, Wheeze Absent and Crackles Absent
GI: Soft, Non tender and Distention present
Neuro/Psych: Alert, Oriented and AO x 3
Data Reviewed
-
Date of Service: February 06, 2024
Medical Decision Making: Reviewed Test Results, Tests Ordered, Independent Historian Assessment, Test Interpretation and Review of Case with other Provider
EKG: Tracing Personally Visualized and interpreted
Echo: Report Reviewed by me
Labs: Labs Reviewed by me
Old Records: Reviewed
[2024-02-06 10:39] LABS: INR 2.28
[2024-02-06] MEDS: CITROMA 300 ML PO (11:08)
[2024-02-06 11:46] LABS: Glucose - Point of Care 234 mg/dl (70-99)
[2024-02-06] MEDS: NOVOLOG FLEXPEN-MODERATE RESISTANCE 3 UNITS SC ×2 (12:28→17:28)
[2024-02-06] MEDS: FERRLECIT 110 MG IV (15:47)
[2024-02-06 17:14] LABS: Glucose - Point of Care 219 mg/dl (70-99)
[2024-02-06 21:18] LABS: Glucose - Point of Care 199 mg/dl (70-99)
[2024-02-06] MEDS: LIPITOR 40 MG PO (22:33)
[2024-02-06] MEDS: LANTUS 0.149999999999999994 UNITS SC (22:35)
[2024-02-07] VITALS (9 sets, daily range): BP systolic 155–181; BP diastolic 72–85; BMI 30.2
[2024-02-07 05:51] LABS: Glucose - Point of Care 77 mg/dl (70-99)
[2024-02-07 07:44] LABS: Hematocrit 25.7 % (39.0-52.0); Hemoglobin 8.5 g/dL (13.0-18.0); Mean Corp Hgb Conc. 33.1 g/dL (33.0-37.0); Mean Corpuscular Hgb 28.5 pg (27.0-31.0); Mean Corpuscular Volume 86.2 fL (80.0-94.0); Mean Platelet Volume 9.8 fL (7.4-10.4); Platelet Count 323 10^3/uL (130-400); Red Blood Cell Count 2.98 10^6/uL (4.70-6.10); Red Cell Dist. Width 14.4 % (11.5-14.5); White Blood Cell Count 7.2 10^3/uL (4.8-10.8)
[2024-02-07 07:45] LABS: INR 1.94
[2024-02-07 07:51] LABS: Glucose - Point of Care 75 mg/dl (70-99)
[2024-02-07 08:16] LABS: Blood Urea Nitrogen 49 mg/dl (9-20); Calcium 8.9 mg/dl (8.4-10.2); Carbon Dioxide 21 mmol/L (22-30); Chloride 112 mmol/L (98-107); Estimated Creatinine Clearance 21 ml/min; Glucose 61 mg/dl (70-99); Potassium 4.1 mmol/L (3.5-5.1); Sodium 136 mmol/L (135-145)
[2024-02-07] MEDS: NOVOLOG FLEXPEN-MODERATE RESISTANCE SC ×2 (08:47→13:22)
[2024-02-07] MEDS: ROCALTROL 0.5 MCG PO (09:17)
[2024-02-07] MEDS: APRESOLINE 75 MG PO ×3 (09:17→22:26)
[2024-02-07] MEDS: SODIUM BICARBONATE 650 MG PO ×3 (09:17→22:23)
[2024-02-07] MEDS: TRICOR 145 MG PO (09:20)
[2024-02-07] MEDS: PROSCAR 5 MG PO (09:20)
[2024-02-07] MEDS: NORVASC 10 MG PO (09:20)
--- NOTE | 2024-02-07 12:50 | ITS.CL.PACE ---
Job Superintendent - Pacemaker Implant
Pacemaker Implant
Procedure Report:
Conduction system pacing Permanent Pacemaker Placement:
78 yrs old man with highly symptomatic bradycardia with intermittent high degree AV block is in need for a pacemaker.
Indications:
Intermittent high degree heart block
Date of the Procedure:
02/07/24
Pre-Operative Diagnosis: High degree AV block
Post-Operative Diagnosis: High degree AV block
Procedure Performed: Conduction system pacing permanent pacemaker
Performing Physician:
Xin Mcdowell MD
Anesthesia:
See anesthesia report.
Detailed Description of the Procedure:
The patient was identified using hospital identification and informed consent obtained for the procedure. The risks were explained to the patient and the family including, but not limited to: Bleeding, infection, arrhythmia, stroke,
vascular/cardiac/lung puncture, surgery, pacemaker dependency/device malfunction. All questions were answered.
A surgical pause was performed in accordance with hospital regulations. Anesthesia service provided sedation as reported separately. Antibiotics administered IV for risk of bacterial colonization. After obtaining informed and written consent, the
patient was brought to the electrophysiology laboratory.
The initial rhythm was sinus with second degree AV block.
The procedure site was meticulously prepared with surgical scrub and allowed to dry with no pooling. Sterile draping was applied to cover the procedure site. The image intensifier was draped with sterile bag and positioned over the patient.
A surgical pause and time out was performed immediately prior to the procedure with review of her medical history, recent labs, allergies and medications with site of procedure identified and consent noted in the chart. Antibiotics pre operatively
given. All team members concurred.
The left infraclavicular region was prepped and draped in the usual sterile fashion. Local anesthesia was administered subcutaneously using 1% lidocaine / Bupivacaine. The left cephalic vein cutdown was performed with an incision at the
delto-pectoral groove, and vascular sheath was introduced for lead access.
A subcutaneous pocket was created with blunt dissection and use of electrocautery. Hemostasis was excellent.
The guide wire was advanced to the RA and was advanced to the RV. The preformed curved long hemostatic peel away HIS sheath was advanced into the RV cavity. A left bundle pacing wire was advanced into the sheath to the tip with ventricular signals
noted with unipolar manner. The cardiac anatomy was significant rotated.
The HIS location was identified under guidance of the fluoroscopy and the pacing wire signals. The sheath with the pacing lead was moved deeper into the RV cavity on the septum at a more inferior and distal to the HIS signals.
Once adequate signals were noted on the electrograms of the pacing lead in the sheath with W pattern signals on the RV septum, the lead was advanced and clockwise turns were done under fluoroscopic guidance. The septum was engaged and the lead was
paced intermittently after every 2-3 turns. The ventricular capture was monitored throughout and the captures gradually changed from RV pacing to non-selective pacing to LBB pacing with small R wave on V1 morphology. �
The long guiding sheath was cut and removed from the RV without change in lead position, impedance, sensing, or capture. The lead was sutured to the underlying pectoralis fascia with 0-silk stitches.
Then the attention was given to atrial lead. Atrial active lead was placed in the RA and into the RAA. There were excellent impedance and thresholds.
The leads were attached to the pulse generator in standard configuration with acceptable sensing and threshold parameters. The pocket was irrigated with antibiotic solution; the pocket was inspected with no active bleeding noted. The device and the
leads were placed in the pocket.
Deep subcutaneous tissues were closed with three layers of 2-0 V loc sutures; and the dermis was reopposed using a running 4-0 Vloc subcuticular suture.
A pressure dressing was applied. Sponge counts / sharp counts were appropriate.
Procedure End:
The procedure was tolerated well. Aquacel bandaged was applied.
Pressure dressing applied.
Estimated Blood loss:
5 cc
Specimens Removed:
No cultures and no specimens were obtained. No intraoperative pathology was identified.
Urine output:
None
Packs / Drains/ Tubes:
None
Instrument / Sponge Count Correct:
Yes
Flouro time:
4.4min / 21.4mGy
Complications of the Procedure:
None
Condition of Patient at Time of Transfer:
Hemodynamically stable with no neurological or vascular compromise.
Device information:�
Generator: Cannae; Model: W1DR01; Serial # [id number]�
����������� RA pacing lead: Medtronic; Model: 5076-52; Serial # [id number]
����������� Measured data on the RV lead was sensing of 2.5 mV of flutter waves, impedance of 730 ohms and threshold of 1.0 V at 0.4ms. �
����������� RV LBB pacing lead: Medtronic; Model: 3830-69; Serial # [id number]
����������� Measured data on the RV lead was sensing of 12mV, impedance of 820 ohms and threshold of 0.75 V at 0.4ms�
PROGRAMMING PARAMETERS:�
Isaiah parameter settings were DDDR 60-130 �
����������� Paced AV interval: 180ms
����������� Sensed AV interval: 150 ms.
����������� Rate Adaptive A-V Interval: off
Mode switch ON
�
Summary:
Successful implantation of MRI compatible dual chamber conduction system pacing permanent pacemaker.
Results/Recommendations:
-Please follow up CXR�
1. Please provide patient with adequate pain control�
Instructions to be given to patient:�
- Please follow up with [facility] at [address] [place] [address] ([phone]) to get your wound checked in 2 weeks of your discharge. Then follow with
- Do not wet incision site until after it is evaluated at cardiology clinic. No baths or showers until then. Sponge baths / showers are OK but dab dry the dressing after it is wet.�
- Allow 'steri strips' to fall off on their own�
- Do not lift left elbow above shoulder, particularly with sudden jerking movements, for 1 month�
- Do not lift anything weighing more than 5 pounds with the left arm for 1 month�
- If you notice any fevers, shortness of breath, lightheadedness, chest pain, or worsening swelling in the wound site, please contact the arrhythmia clinic, contact your colorectal surgeon, or present to the hospital for evaluation.�
Xin Mcdowell MD
Electrophysiology
[2024-02-07 13:22] LABS: Glucose - Point of Care 80 mg/dl (70-99)
[2024-02-07] MEDS: FERRLECIT 110 MG IV (13:24)
--- NOTE | 2024-02-07 14:22 | PTCARENOTE ---
At 1300, pt back from EP lab s/p Dual chamber pacemaker placement. pt is AAO*3, Vss, room air. c/o pain at the site. pt is oriented to the room. call guerrero within the reach. will continue plan of care.
--- NOTE | 2024-02-07 14:31 | W.PN.HOSP.TC ---
Today's Communication/Plan
-
Resume Coumadin
PPM today
Lasix within 1-2 days if Scr stabilized
Assessment / Plan
Assessment / Plan
Gen: NAD, AAOx3.
Eyes: EOMI, PERRLA, no scleral icterus.
Neck: supple.
CV: remains irreg/irreg, +S1/S2, 2/6 MIGUEL
Resp: remains CTAB, no rales, wheezes, or rhonchi.
Abd: remains +BS, soft, NT, ND
Skin: No rashes.
Neuro: CN 2-12 intact, non-focal.
Psych: Normal mood and affect.
CXR: Moderate cardiomegaly, without significant change. No superimposed acute cardiopulmonary process appreciated.
ALBA on CKD4:
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
-Holding furosemide
-Improving, if stabilized, may resume Lasix within 1 to 2 days
-Continue calcitriol and sodium bicarbonate
Paroxysmal Atrial Fibrillation:
-INR elevated (Coumadin coagulopathy)
�Resume Coumadin
Heart Block (1st degree / Mobitz I)
-Reviewed multiple previous ECGs - Patient appears to flip between 1st degree and Mobitz Type I
-Monitor on Telemetry
-PPM today
#Supratherapeutic INR
� Can resume Coumadin today
Hemorrhoidal Bleeding:
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
-cont to trend Hb (currently stable)
Chronic HFpEF
-Lasix on hold with ALBA
-Monitor Is&Os and Daily Weights
� Anticipate resuming in 1 to 2 days
Essential Hypertension
-Continue amlodipine
Hyperlipidemia
-Continue atorvastatin and fenofibric acid
Diabetes Mellitus, Type II
-Continue glargine/SSI/accuchecks
Anemia of Chronic Disease:
-Fe slightly low, B12/folate normal
-cont IV Ferrlecit
BPH
-Continue Avodart
Hx Carotid Artery Stenosis s/p Right ICA Stent
Hx Aortic Stenosis s/p Bioprosthetic Aortic Valve Replacement
FULL/Coumadin
Total time spent on today's encounter was 55 minutes which included time spent in counseling the patient/family regarding diagnosis and treatment plan as listed above, goals of care, and symptom management. Case was discussed with nursing staff,
specialists, and care coordinators/case management. All labs and imaging personally reviewed by me. Remainder the time spent in detailed review of previous records, lab data, imaging, and other medical provider documentation.
Anticipated Discharge: 24 - 48 hours
Subjective/Interval History
-
Date of Service: February 07, 2024
Plan for PPM today, no other acute events
Objective Data
-
Labs:
Laboratory Results
02/07/24
06:59
WBC 7.2
Hgb 8.5 L
Hct 25.7 L
Plt Count 323
PT 22.0 H
INR 1.94
Sodium 136
Potassium 4.1
Chloride 112 H
Carbon Dioxide 21 L
BUN 49 H
Creatinine 3.3 H
Glucose 61 L
Calcium 8.9
Vital Signs:
Vital Signs
Temp Pulse Resp BP Pulse Ox
97.7 F 86 20 157/80 96
02/07/24 13:45 02/07/24 13:45 02/07/24 13:45 02/07/24 13:45 02/07/24 13:45
I&O
02/06/24 02/07/24 02/08/24
06:59 06:59 06:59
Intake Total 1647 / 1647
Output Total 1650 / 1650
Balance -3 / -3
Review of Systems
-
History Source: Patient
All other systems: Not reviewed unless documented
Data Reviewed
-
Diagnostic Radiology: Image personally visualized and interpreted and Report Reviewed by me
Labs: Labs Reviewed by me
[2024-02-07] MEDS: ANESTHETIC LOZENGE 1 LOZENGE PO ×2 (15:15→19:38)
--- NOTE | 2024-02-07 15:51 | CM ---
CM attempted to meet with pt but off unit for procedure
Info gathered from prior recent admission
Pt resides with his spouse and one child in a 2SH with 2STE
Pt is independent with ADLs
denies use of DMEs and hx with VN/SNF
PCP- Arlene Roman
Rx- [facility]
Discharge Disposition- home, follow for needs
[2024-02-07 16:37] LABS: Glucose - Point of Care 304 mg/dl (70-99)
[2024-02-07] MEDS: NOVOLOG FLEXPEN-MODERATE RESISTANCE 7 UNITS SC (17:05)
[2024-02-07] MEDS: COUMADIN 5 MG PO (17:05)
[2024-02-07] MEDS: ANCEF 5 IV (19:37)
[2024-02-07 21:10] LABS: Glucose - Point of Care 467 mg/dl (70-99)
[2024-02-07 21:58] LABS: Glucose 349 mg/dl (70-99)
[2024-02-07] MEDS: LIPITOR 40 MG PO (22:23)
[2024-02-07] MEDS: LANTUS 0.280000000000000027 UNITS SC (22:23)
[2024-02-07] MEDS: NOVOLOG FLEXPEN 5 UNITS SC (22:42)
[2024-02-08 00:11] LABS: Glucose - Point of Care 333 mg/dl (70-99)
[2024-02-08] MEDS: TUMS 1 TABLET PO (01:53)
[2024-02-08 03:11] LABS: Glucose - Point of Care 218 mg/dl (70-99)
[2024-02-08 03:14] VITALS: BP 166/75
[2024-02-08] MEDS: ANCEF 5 IV (03:27)
[2024-02-08 06:00] VITALS: BMI 30.5
[2024-02-08 07:00] VITALS: BP 189/83
[2024-02-08 07:38] LABS: Hematocrit 25.3 % (39.0-52.0); Hemoglobin 8.4 g/dL (13.0-18.0); Mean Corp Hgb Conc. 33.2 g/dL (33.0-37.0); Mean Corpuscular Hgb 28.5 pg (27.0-31.0); Mean Corpuscular Volume 85.8 fL (80.0-94.0); Mean Platelet Volume 9.8 fL (7.4-10.4); Platelet Count 336 10^3/uL (130-400); Red Blood Cell Count 2.95 10^6/uL (4.70-6.10); Red Cell Dist. Width 14.3 % (11.5-14.5); White Blood Cell Count 8.4 10^3/uL (4.8-10.8)
[2024-02-08 07:45] LABS: INR 2.02; PT 22.7 Sec (11.4-14.6)
[2024-02-08 08:09] LABS: Blood Urea Nitrogen 52 mg/dl (9-20); Calcium 9.3 mg/dl (8.4-10.2); Carbon Dioxide 22 mmol/L (22-30); Chloride 107 mmol/L (98-107); Estimated Creatinine Clearance 21 ml/min; Glucose 109 mg/dl (70-99); Potassium 4.1 mmol/L (3.5-5.1); Sodium 138 mmol/L (135-145)
[2024-02-08 08:22] LABS: Glucose - Point of Care 86 mg/dl (70-99)
[2024-02-08] MEDS: NOVOLOG FLEXPEN-MODERATE RESISTANCE SC ×2 (08:26→12:14)
[2024-02-08] MEDS: NORVASC 10 MG PO (09:08)
[2024-02-08] MEDS: APRESOLINE 75 MG PO (09:09)
[2024-02-08] MEDS: TRICOR 145 MG PO (09:10)
[2024-02-08] MEDS: PROSCAR 5 MG PO (09:10)
[2024-02-08] MEDS: SODIUM BICARBONATE 650 MG PO (09:11)
[2024-02-08] MEDS: LASIX 40 MG PO (09:18)
[2024-02-08] MEDS: ROCALTROL 0.25 MCG PO (09:18)
--- NOTE | 2024-02-08 09:57 | W.PN.CD ---
Today's Communication / Plan
-
- s/p PPM
- now A sensed V paced rhythm
- Pressure dressing removed
- OK to resume warfarin
- Stable from cardiac stand point.
Impression / Plan
-
Bradycardia - 40s-50s on tele.
- symptoms of SOB and fatigue with exertion.
- advanced AV block
- s/p PPM on 02/07/24 - [employer] conduction system pacemaker.
- Feeling much better after the implant.
Supratherapeutic INR - 4.9 on 02/04/24.
- holding Warfarin and monitor INR.
- INR 2.0 today.
- he admitted to bloody stools though reports having hemorrhoids, monitor.
Afib - paroxysmal.
- in SB/SR on tele.
- INR 4.9 on admit, holding Warfarin for now.
- INR is 2.02 and can restart Warfarin now.
Bio AVR - stable on echo.
- check echo 02/07/24 - LVEF 60-65%. Moderate LVH - bioprosthetic valve - mean gradient 22mmHg
- multiple outpatient echoes have been ordered since last echo 2020, but he has not completed them.
HTN - stable on Norvasc, Hydralazine.
HLD - stable on Lipitor, continue.
HFpEF - chronic.
- back on home regimen lasix40 mg BID.
- Cr was 4.5 at arrival - now coming down - 3.3 today (baseline ~ 3.0)
Anemia - acute on chronic.
- mild bloody stools per patient.
- follow Hgb and INR.
- Hgb is stable now.
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
- followed by Dr. Durbin as outpatient.
- creatinine coming down now.
- per nephrology.
DM - insulin, per hospitalist.
Physical Exam
Vital Signs/Labs
Vital Signs
Temp Pulse Resp BP Pulse Ox
97.5 F 69 18 189/83 96
02/08/24 07:00 02/08/24 07:00 02/08/24 07:00 02/08/24 07:00 02/08/24 07:00
02/07/24 02/08/24 02/09/24
06:59 06:59 06:59
Actual Weight 92.675 kg 93.553 kg
02/08/24 06:53
02/08/24 06:53
PT 22.7 Sec (11.4-14.6) H 02/08/24 06:53
INR 2.02 02/08/24 06:53
APTT 57.4 Sec (23.4-35.0) H 02/04/24 20:03
Magnesium 2.4 mg/dl (1.6-2.3) H 02/05/24 06:06
02/04/24
20:03
Qtn-[id number] Pept 4010
Physical Exam
Constitutional: No acute distress and Comfortable
EENT: Anicteric and Moist mucous membranes
Cardiovascular: Rhythm & rate is regular, Pedal edema is absent, JVD pressure is normal and Systolic murmur absent
Respiratory: Respiratory effort normal, Lungs clear to auscul. and Wheeze Absent
GI: Soft, Non tender and Normal bowel sounds
Neuro/Psych: Alert, Oriented and AO x 3
Other: Cardiac Device Site
Data Reviewed
-
Date of Service: February 08, 2024
Medical Decision Making: Reviewed Test Results, Independent Historian Assessment, Test Interpretation and Review of Case with other Provider
EKG: Tracing Personally Visualized and interpreted
Echo: Report Reviewed by me
X-Ray/CT/US/MRI/NUC/PET: Image Personally Visualized and interpreted
Labs: Labs Reviewed by me
Old Records: Reviewed
--- NOTE | 2024-02-08 10:15 | PTCARENOTE ---
Pt a+ox3, sitting bedside waiting for breakfast. Sling in place. S/P pacemaker, dressing dry and intact left chest wall, pt in no distress.
[2024-02-08 11:00] VITALS: BP 177/79
[2024-02-08 12:09] LABS: Glucose - Point of Care 141 mg/dl (70-99)
--- NOTE | 2024-02-08 12:20 | W.PN.HOSP.TC ---
Addendum entered and electronically signed by Scott Michelle MD 02/08/24 16:33:
[id number]
#Iron deficiency anemia
Original Note:
Today's Communication/Plan
-
switch to po ferrous sulfate
f/u bmp, hgb in 5 days
f/u cards, pcp, renal outpatient
Assessment / Plan
Assessment / Plan
Gen: NAD, AAOx3.
Eyes: EOMI, PERRLA, no scleral icterus.
Neck: supple.
CV: remains irreg/irreg, +S1/S2, 2/6 MIGUEL
Resp: remains CTAB, no rales, wheezes, or rhonchi.
Abd: remains +BS, soft, NT, ND
Skin: No rashes.
Neuro: CN 2-12 intact, non-focal.
Psych: Normal mood and affect.
CXR: Moderate cardiomegaly, without significant change. No superimposed acute cardiopulmonary process appreciated.
ALBA on CKD4:
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
-Improving, resume lasix
-f/u bmp with renal in 5 days
-Continue calcitriol and sodium bicarbonate
Paroxysmal Atrial Fibrillation:
-INR elevated (Coumadin coagulopathy)
�Resume Coumadin
Heart Block (1st degree / Mobitz I)
-Reviewed multiple previous ECGs - Patient appears to flip between 1st degree and Mobitz Type I
-Monitor on Telemetry
-PPM 02/06 - feels better after implantation
#Supratherapeutic INR
� Can resume Coumadin today
-F/u INR outpatient
Hemorrhoidal Bleeding:
-Patient reports one episode of rectal bleeding two days GASTROENTEROLOGY MANAGER after a bowel movement without recurrence of symptoms.�
-cont to trend Hb (currently stable) f/u hgb in 5 days
Chronic HFpEF
-Monitor Is&Os and Daily Weights
� resume lasix
Essential Hypertension
-Continue amlodipine
Hyperlipidemia
-Continue atorvastatin and fenofibric acid
Diabetes Mellitus, Type II
-Continue glargine/SSI/accuchecks
Anemia of Chronic Disease:
-Fe slightly low, B12/folate normal
-cont IV Ferrlecit - switch to PO Ferrous sulfate
-F/u hgb outpatient
BPH
-Continue Avodart
Hx Carotid Artery Stenosis s/p Right ICA Stent
Hx Aortic Stenosis s/p Bioprosthetic Aortic Valve Replacement
FULL/Coumadin
More than 30 minutes spent in discharge including
Final examination of the patient
Summarizing hospital stay
Instructions for continuing care to all relevant caregivers
Preparation of discharge records, prescriptions, and referral forms
Total time spent (35 in minutes):
Anticipated Discharge: Today
Subjective/Interval History
-
Date of Service: February 08, 2024
Feels better after pacemaker implantation
Objective Data
-
Labs:
Laboratory Results
02/08/24
06:53
WBC 8.4
Hgb 8.4 L
Hct 25.3 L
Plt Count 336
PT 22.7 H
INR 2.02
Sodium 138
Potassium 4.1
Chloride 107
Carbon Dioxide 22
BUN 52 H
Creatinine 3.3 H
Glucose 109 H
Calcium 9.3
Vital Signs:
Vital Signs
Temp Pulse Resp BP Pulse Ox
97.9 F 73 18 177/79 96
02/08/24 11:00 02/08/24 11:00 02/08/24 11:00 02/08/24 11:00 02/08/24 11:00
I&O
02/07/24 02/08/24 02/09/24
06:59 06:59 06:59
Intake Total 1647 / 1647 900 / 900
Output Total 1650 / 1650 1245 / 1245
Balance -3 / -3 -345 / -345
Review of Systems
-
History Source: Patient
All other systems: Not reviewed unless documented
Data Reviewed
-
Diagnostic Radiology: Image personally visualized and interpreted and Report Reviewed by me
Labs: Labs Reviewed by me
--- NOTE | 2024-02-08 12:31 | W.DS.TRANS ---
DC Summary - [facility]
-
Discharge Instructions:
Discharge Diagnosis/Procedures Pacemaker implant
ALBA on CKD4
Diet Low Cholesterol
Driving Restrictions No driving for 1 week
Bathing Restrictions OK to Shower
Blood Work INR in 1 day and as scheduled further. BMP in 3-
5 days with nephrology; CBC with pcp in 5 days
Instructions:
Stand-Alone Forms: DC Inst - Implanted Device
Changes to Home Medications: Yes
Discharge Medications:
DC Medications w/original date entered in [employer]
amlodipine 10 mg tablet 10 mg PO DAILY Blood pressure 06/11/15
insulin aspart U-100 100 unit/mL (3 mL) subcutaneous pen (Novolog FlexPen U-100 Insulin aspart) 16 - 24 sliding scale dose SC AC Diabetes 08/13/17
atorvastatin 40 mg tablet 40 mg PO HS High cholesterol 06/28/19
fenofibric acid (choline) 135 mg capsule,delayed release 135 mg PO DAILY High cholesterol 06/28/19
dutasteride 0.5 mg capsule (Avodart) 0.5 mg PO DAILY Urinary issue 11/06/20
warfarin 5 mg tablet (Jantoven) 2.5 mg PO WETH Blood clot prevention/tx 11/06/20
warfarin 5 mg tablet (Jantoven) 5 mg PO SUMOTUFRSA Blood clot prevention/tx 11/06/20
hydralazine 50 mg tablet 75 mg PO TID Heart disease/condition 05/20/21
furosemide 40 mg tablet 40 mg PO BID Fluid retention/Swelling #60 tabs 10/22/21
calcitriol 0.25 mcg capsule 0.25 mcg PO SUTUTHSA Kidney Disease 01/29/22
sodium bicarbonate 650 mg tablet 650 mg PO TID Electrolyte Repletion 08/12/22
calcitriol 0.5 mcg capsule 0.5 mcg PO MOWEFR Kidney Disease 12/23/23
insulin glargine 100 unit/mL (3 mL) subcutaneous pen 28 unit SC HS Diabetes 12/23/23
ferrous sulfate 325 mg (65 mg iron) tablet 325 mg PO DAILY 30 days #30 tabs 02/08/24
Home Medication Changes
ferrous sulfate 325 mg (65 mg iron) tablet 325 mg PO DAILY 30 days #30 tabs 02/08/24
Pending Results: No
--- NOTE | 2024-02-08 14:03 | CM ---
Md entered order for discharge.
spoke with patient he said he was ready for discharge.
IMM given explained and signed on chart .
He said his son Ezequiel will drive him home today.
Offered Vn he declined need.
PLAN Home no needs
== END 2024-02-08 13:31 | disposition home or self-care (01) | DRG 243 ==
LOC: 4 EAST ACU 23:07
PROVIDERS: Internal Medicine; Physician Assistant; Physician Assistant Medical; ADMITTING PHYSICIAN Hospitalist; ATTENDING PHYSICIAN Internal Medicine; CONSULT PHYSICIAN Internal Medicine Cardiovascular Disease; EMERGENCY PHYSICIAN Emergency Medicine; FAMILY PHYSICIAN Nurse Practitioner
PROC: 02HK3JZ Insertion of Pacemaker Lead into Right Ventricle, Percutaneous Approach (ICD-10-PCS; 2024-02-07)
PROC: 0JH606Z Insertion of Pacemaker, Dual Chamber into Chest Subcutaneous Tissue and Fascia, Open Approach (ICD-10-PCS; 2024-02-07)
PROC: 02H63JZ Insertion of Pacemaker Lead into Right Atrium, Percutaneous Approach (ICD-10-PCS; 2024-02-07)
DX: I44.1 Atrioventricular block, second degree (principal); D68.9 Coagulation defect, unspecified; I13.0 Hypertensive heart and chronic kidney disease with heart failure and stage 1 through stage 4 chronic kidney disease, or unspecified chronic kidney disease; I50.32 Chronic diastolic (congestive) heart failure; N18.4 Chronic kidney disease, stage 4 (severe); N17.9 Acute kidney failure, unspecified; K92.1 Melena; I48.0 Paroxysmal atrial fibrillation; K64.9 Unspecified hemorrhoids; E11.22 Type 2 diabetes mellitus with diabetic chronic kidney disease; E78.00 Pure hypercholesterolemia, unspecified; D63.8 Anemia in other chronic diseases classified elsewhere; D50.9 Iron deficiency anemia, unspecified; T45.515A Adverse effect of anticoagulants, initial encounter; N40.0 Benign prostatic hyperplasia without lower urinary tract symptoms; I34.0 Nonrheumatic mitral (valve) insufficiency; G47.33 Obstructive sleep apnea (adult) (pediatric); I25.10 Atherosclerotic heart disease of native coronary artery without angina pectoris; E11.36 Type 2 diabetes mellitus with diabetic cataract; Z95.1 Presence of aortocoronary bypass graft; Z11.52 Encounter for screening for COVID-19; Z95.3 Presence of xenogenic heart valve; Z79.01 Long term (current) use of anticoagulants; Z86.73 Personal history of transient ischemic attack (TIA), and cerebral infarction without residual deficits; Z91.041 Radiographic dye allergy status; Z79.4 Long term (current) use of insulin; Z87.891 Personal history of nicotine dependence; Z82.49 Family history of ischemic heart disease and other diseases of the circulatory system
CPT/HCPCS: 93308; 33208; 36415; 51798; 71045; 71046; 80048; 80053; 81003; 81015; 82607; 82728; 82746; 82947; 82962; 83036; 83540; 83550; 83735; 83880; 84443; 85018; 85025; 85027; 85610; 85730; 87502; 87811; 93005; 99285; C1769; C1785; C1887; C1892; C1898; J2916

== ENCOUNTER → 2024-02-09 11:55 | Outpatient (REF) | payer BC, SELFPAY ==
[2024-02-09 13:53] LABS: INR 2.65; PT 28.6 Sec (11.4-14.6)
== END ==
LOC: REG 11:55
PROVIDERS: ATTENDING PHYSICIAN Internal Medicine Cardiovascular Disease
DX: Z95.2 Presence of prosthetic heart valve (principal)
CPT/HCPCS: 36415; 85610

== ENCOUNTER → 2024-02-14 12:26 | Outpatient (REF) | payer BC, SELFPAY ==
[2024-02-14 12:55] LABS: % Basophils 0.5 % (0-2); % Eosinophils 3.9 % (0-6); % Immature Granulocytes 1.2 % (0-0.5); % Monocytes 13.1 % (1.7-9.3); % Neutrophils 67.3 % (42.2-75.2); Absolute Eosinophils 0.3 10^3/uL (0-0.7); Absolute Immature Granulocytes 0.1 10^3/uL (0-0.05); Absolute Lymphocytes 1.2 10^3/uL (1.2-3.4); Absolute Monocytes 1.1 10^3/uL (0.1-0.6); Absolute Neutrophils 5.6 10^3/uL (1.4-6.5); Hematocrit 28.2 % (39.0-52.0); Hemoglobin 9.1 g/dL (13.0-18.0); Mean Corp Hgb Conc. 32.3 g/dL (33.0-37.0); Mean Corpuscular Volume 86.8 fL (80.0-94.0); Mean Platelet Volume 9.6 fL (7.4-10.4); Nucleated Red Blood Cells % 0 % (-); Platelet Count 327 10^3/uL (130-400); Red Blood Cell Count 3.25 10^6/uL (4.70-6.10); Red Cell Dist. Width 14.4 % (11.5-14.5); White Blood Cell Count 8.3 10^3/uL (4.8-10.8)
[2024-02-14 13:13] LABS: INR 2.71; PT 28.6 Sec (11.4-14.6)
== END ==
LOC: REG 12:26
PROVIDERS: ATTENDING PHYSICIAN Internal Medicine Cardiovascular Disease; FAMILY PHYSICIAN Nurse Practitioner
DX: I48.0 Paroxysmal atrial fibrillation (principal); D64.9 Anemia, unspecified
CPT/HCPCS: 36415; 85025; 85610

== ENCOUNTER → 2024-02-16 07:21 | Outpatient (REF) | payer BC, SELFPAY ==
[2024-02-16 08:31] LABS: Blood Urea Nitrogen 53 mg/dl (9-20); Calcium 8.9 mg/dl (8.4-10.2); Carbon Dioxide 23 mmol/L (22-30); Chloride 106 mmol/L (98-107); Glucose 75 mg/dl (70-99); Potassium 4.5 mmol/L (3.5-5.1); Sodium 137 mmol/L (135-145); eGFR 17.13
== END ==
LOC: REG 07:21
PROVIDERS: ATTENDING PHYSICIAN Nurse Practitioner
DX: N17.9 Acute kidney failure, unspecified (principal)
CPT/HCPCS: 36415; 80048

== ENCOUNTER → 2024-02-22 08:36 | Outpatient (REF) | payer BC, SELFPAY ==
[2024-02-22 09:35] LABS: % Eosinophils 3.7 % (0-6); % Immature Granulocytes 1.2 % (0-0.5); % Lymphocytes 9.5 % (20.5-51.1); % Monocytes 10.4 % (1.7-9.3); % Neutrophils 74.2 % (42.2-75.2); Absolute Basophils 0.1 10^3/uL (0-0.2); Absolute Eosinophils 0.3 10^3/uL (0-0.7); Absolute Immature Granulocytes 0.1 10^3/uL (0-0.05); Absolute Lymphocytes 0.8 10^3/uL (1.2-3.4); Absolute Monocytes 0.9 10^3/uL (0.1-0.6); Absolute Neutrophils 6.1 10^3/uL (1.4-6.5); Hematocrit 27.1 % (39.0-52.0); Hemoglobin 8.9 g/dL (13.0-18.0); Mean Corp Hgb Conc. 32.8 g/dL (33.0-37.0); Mean Corpuscular Hgb 28.6 pg (27.0-31.0); Mean Corpuscular Volume 87.1 fL (80.0-94.0); Mean Platelet Volume 9.5 fL (7.4-10.4); Nucleated Red Blood Cells % 0 % (-); Platelet Count 325 10^3/uL (130-400); Red Blood Cell Count 3.11 10^6/uL (4.70-6.10); Red Cell Dist. Width 14.3 % (11.5-14.5); White Blood Cell Count 8.3 10^3/uL (4.8-10.8)
[2024-02-22 09:49] LABS: INR 2.37; PT 25.7 Sec (11.4-14.6)
[2024-02-22 10:02] LABS: ALT (SGPT) 18 U/L (0-50); AST (SGOT) 33 U/L (17-59); Albumin 3.7 g/dl (3.5-5.0); Alkaline Phosphatase 60 U/L (38-126); Blood Urea Nitrogen 52 mg/dl (9-20); Calcium 9.5 mg/dl (8.4-10.2); Carbon Dioxide 21 mmol/L (22-30); Chloride 107 mmol/L (98-107); Glucose 182 mg/dl (70-99); HDL Cholesterol 57 mg/dl; LDL Cholesterol, Calculated 68 mg/dl; Potassium 4.1 mmol/L (3.5-5.1); Sodium 135 mmol/L (135-145); Total Bilirubin 0.3 mg/dl (0.2-1.3); Total Cholesterol 148 mg/dl (50-199); Total Protein 6.8 g/dl (6.3-8.2); Triglyceride 118 mg/dl (10-149); Very Low Density Lipoprotein 23 mg/dl (0-30); eGFR 19.08
[2024-02-22 11:28] LABS: Glycohemoglobin (HgbA1c) 6.9 % (4.0-5.6)
== END ==
LOC: REG 08:36
PROVIDERS: Physician Assistant; ATTENDING PHYSICIAN Internal Medicine Cardiovascular Disease; FAMILY PHYSICIAN Nurse Practitioner
DX: I48.0 Paroxysmal atrial fibrillation (principal); D64.9 Anemia, unspecified; N17.9 Acute kidney failure, unspecified; E11.65 Type 2 diabetes mellitus with hyperglycemia
CPT/HCPCS: 36415; 80053; 80061; 83036; 85025; 85610

== ENCOUNTER → 2024-03-02 06:43 | Outpatient (REF) | payer BC, SELFPAY ==
[2024-03-02 07:06] LABS: % Basophils 0.5 % (0-2); % Eosinophils 4.5 % (0-6); % Immature Granulocytes 0.9 % (0-0.5); % Lymphocytes 16.3 % (20.5-51.1); % Monocytes 13.9 % (1.7-9.3); % Neutrophils 63.9 % (42.2-75.2); Absolute Eosinophils 0.3 10^3/uL (0-0.7); Absolute Immature Granulocytes 0.1 10^3/uL (0-0.05); Absolute Lymphocytes 1.2 10^3/uL (1.2-3.4); Absolute Neutrophils 4.7 10^3/uL (1.4-6.5); Hematocrit 26.7 % (39.0-52.0); Hemoglobin 8.9 g/dL (13.0-18.0); Mean Corp Hgb Conc. 33.3 g/dL (33.0-37.0); Mean Corpuscular Hgb 28.6 pg (27.0-31.0); Mean Corpuscular Volume 85.9 fL (80.0-94.0); Mean Platelet Volume 9.4 fL (7.4-10.4); Nucleated Red Blood Cells % 0 % (-); Platelet Count 340 10^3/uL (130-400); Red Blood Cell Count 3.11 10^6/uL (4.70-6.10); Red Cell Dist. Width 14.3 % (11.5-14.5); White Blood Cell Count 7.4 10^3/uL (4.8-10.8)
[2024-03-02 07:28] LABS: INR 2.34; PT 25.9 Sec (11.4-14.6)
== END ==
LOC: REG 06:43
PROVIDERS: ATTENDING PHYSICIAN Nurse Practitioner; FAMILY PHYSICIAN Internal Medicine Cardiovascular Disease
DX: R79.9 Abnormal finding of blood chemistry, unspecified (principal); I48.0 Paroxysmal atrial fibrillation
CPT/HCPCS: 36415; 85025; 85610

== ENCOUNTER → 2024-03-30 12:15 | Outpatient (REF) | payer BC, SELFPAY ==
[2024-03-30 13:22] LABS: INR 2.08; PT 23.6 Sec (11.4-14.6)
[2024-03-30 13:26] LABS: % Basophils 0.5 % (0-2); % Eosinophils 1.6 % (0-6); % Immature Granulocytes 0.8 % (0-0.5); % Lymphocytes 10.3 % (20.5-51.1); % Neutrophils 76.8 % (42.2-75.2); Absolute Basophils 0.1 10^3/uL (0-0.2); Absolute Eosinophils 0.2 10^3/uL (0-0.7); Absolute Immature Granulocytes 0.1 10^3/uL (0-0.05); Absolute Neutrophils 7.8 10^3/uL (1.4-6.5); Hematocrit 27.6 % (39.0-52.0); Hemoglobin 9.4 g/dL (13.0-18.0); Mean Corp Hgb Conc. 34.1 g/dL (33.0-37.0); Mean Corpuscular Hgb 28.7 pg (27.0-31.0); Mean Corpuscular Volume 84.4 fL (80.0-94.0); Mean Platelet Volume 9.8 fL (7.4-10.4); Nucleated Red Blood Cells % 0 % (-); Platelet Count 367 10^3/uL (130-400); Red Blood Cell Count 3.27 10^6/uL (4.70-6.10); Red Cell Dist. Width 14.2 % (11.5-14.5); White Blood Cell Count 10.1 10^3/uL (4.8-10.8)
[2024-03-30 14:06] LABS: Albumin 3.8 g/dl (3.5-5.0); Blood Urea Nitrogen 57 mg/dl (9-20); Calcium 9.3 mg/dl (8.4-10.2); Carbon Dioxide 19 mmol/L (22-30); Chloride 106 mmol/L (98-107); Glucose 135 mg/dl (70-99); Iron 61 ug/dl (49-181); Phosphorus 4.6 mg/dl (2.5-4.5); Potassium 4.5 mmol/L (3.5-5.1); Sodium 138 mmol/L (135-145); eGFR 18.39
[2024-03-30 14:16] LABS: Percent Saturation 18 % (20-50); Total Iron Binding Capacity 328 ug/dl (261-462)
[2024-03-30 14:27] LABS: Protein/creatinine Ratio 1.8; Urine Protein 132 mg/dl
[2024-03-31 16:10] LABS: Intact PTH 307.3 pg/ml (13.6-85.8)
== END ==
LOC: REG 12:15
PROVIDERS: ATTENDING PHYSICIAN Internal Medicine Cardiovascular Disease; FAMILY PHYSICIAN Nurse Practitioner; OTHER PHYSICIAN Internal Medicine
DX: D64.9 Anemia, unspecified (principal); Z95.2 Presence of prosthetic heart valve; N18.4 Chronic kidney disease, stage 4 (severe)
CPT/HCPCS: 36415; 80069; 82570; 82728; 83540; 83550; 83970; 84156; 85025; 85610

== ENCOUNTER → 2024-05-04 13:08 | Outpatient (REF) | payer BC, SELFPAY ==
[2024-05-04 15:35] LABS: % Basophils 0.5 % (0-2); % Eosinophils 2.1 % (0-6); % Immature Granulocytes 0.4 % (0-0.5); % Lymphocytes 13.1 % (20.5-51.1); % Monocytes 10.8 % (1.7-9.3); % Neutrophils 73.1 % (42.2-75.2); Absolute Eosinophils 0.2 10^3/uL (0-0.7); Absolute Lymphocytes 1.1 10^3/uL (1.2-3.4); Absolute Monocytes 0.9 10^3/uL (0.1-0.6); Absolute Neutrophils 6.2 10^3/uL (1.4-6.5); Hematocrit 27.8 % (39.0-52.0); Mean Corp Hgb Conc. 32.4 g/dL (33.0-37.0); Mean Corpuscular Hgb 28.4 pg (27.0-31.0); Mean Corpuscular Volume 87.7 fL (80.0-94.0); Mean Platelet Volume 10.1 fL (7.4-10.4); Nucleated Red Blood Cells % 0 % (-); Platelet Count 358 10^3/uL (130-400); Red Blood Cell Count 3.17 10^6/uL (4.70-6.10); Red Cell Dist. Width 14.3 % (11.5-14.5); White Blood Cell Count 8.4 10^3/uL (4.8-10.8)
[2024-05-04 15:46] LABS: INR 3.42
[2024-05-04 15:50] LABS: Albumin 3.7 g/dl (3.5-5.0); Blood Urea Nitrogen 65 mg/dl (9-20); Calcium 9.1 mg/dl (8.4-10.2); Carbon Dioxide 18 mmol/L (22-30); Chloride 108 mmol/L (98-107); Glucose 169 mg/dl (70-99); Phosphorus 4.6 mg/dl (2.5-4.5); Potassium 4.9 mmol/L (3.5-5.1); Sodium 135 mmol/L (135-145); eGFR 16.03
== END ==
LOC: REG 13:08
PROVIDERS: ATTENDING PHYSICIAN Internal Medicine Cardiovascular Disease; FAMILY PHYSICIAN Nurse Practitioner; REFERRING PHYSICIAN Internal Medicine
DX: N18.4 Chronic kidney disease, stage 4 (severe) (principal); D64.9 Anemia, unspecified; I48.91 Unspecified atrial fibrillation
CPT/HCPCS: 36415; 80069; 85025; 85610

== ENCOUNTER → 2024-05-11 06:29 | Outpatient (REF) | payer BC, SELFPAY ==
[2024-05-11 07:20] LABS: INR 2.73; PT 29.3 Sec (11.4-14.6)
== END ==
LOC: REG 06:29
PROVIDERS: ATTENDING PHYSICIAN Internal Medicine Cardiovascular Disease
DX: I48.0 Paroxysmal atrial fibrillation (principal)
CPT/HCPCS: 36415; 85610

== ENCOUNTER → 2024-05-15 10:41 | Outpatient (REF) | payer BC, SELFPAY ==
[2024-05-15 13:06] LABS: INR 2.44; PT 26.4 Sec (11.4-14.6)
== END ==
LOC: REG 10:41
PROVIDERS: ATTENDING PHYSICIAN Nurse Practitioner
DX: I48.0 Paroxysmal atrial fibrillation (principal)
CPT/HCPCS: 36415; 85610

== ENCOUNTER → 2024-05-16 08:00 | Day surgery (SDC) | payer BC, SELFPAY ==
--- NOTE | 2024-05-16 11:12 | ITS.CL.CARDI ---
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
Cardioversion
Procedure Report:
Date of Procedure: May 16 2024
Procedure: Cardioversion
Indication: Symptomatic atrial fibrillation
Performing Physician: Melvin Drummond DO, FACC
Technique: The patient was brought to the holding area. Signed informed consent was obtained. A time out was called and performed. The patient was anesthetized by the anesthesia service. Anticoagulation status was reviewed and appropriate. R2 pads
were placed anteriorly and posteriorly. A 200 J synchronized biphasic shock restored normal sinus rhythm without significant bradycardia. There were no complications.
Conclusion: Uncomplicated cardioversion from atrial fibrillation to sinus rhythm.
Recommendation: Routine post cardioversion care. Continue halfway anticoagulation.
== END ==
LOC: CATH 08:00
PROVIDERS: ATTENDING PHYSICIAN Nuclear Medicine Nuclear Cardiology; FAMILY PHYSICIAN Nurse Practitioner
DX: I48.0 Paroxysmal atrial fibrillation (principal); I13.0 Hypertensive heart and chronic kidney disease with heart failure and stage 1 through stage 4 chronic kidney disease, or unspecified chronic kidney disease; I50.32 Chronic diastolic (congestive) heart failure; N18.4 Chronic kidney disease, stage 4 (severe); E11.22 Type 2 diabetes mellitus with diabetic chronic kidney disease; Z86.73 Personal history of transient ischemic attack (TIA), and cerebral infarction without residual deficits; E78.5 Hyperlipidemia, unspecified; I44.1 Atrioventricular block, second degree; G47.33 Obstructive sleep apnea (adult) (pediatric); Z87.891 Personal history of nicotine dependence; Z79.4 Long term (current) use of insulin; Z79.01 Long term (current) use of anticoagulants
CPT/HCPCS: 92960; 93005

== ENCOUNTER → 2024-05-23 14:52 | Outpatient (REF) | payer BC, SELFPAY ==
[2024-05-23 17:10] LABS: INR 2.71; PT 28.6 Sec (11.4-14.6)
== END ==
LOC: REG 14:52
PROVIDERS: ATTENDING PHYSICIAN Internal Medicine Cardiovascular Disease
DX: I48.0 Paroxysmal atrial fibrillation (principal)
CPT/HCPCS: 36415; 85610

== ENCOUNTER → 2024-05-31 13:42 | Outpatient (REF) | payer BC, SELFPAY ==
[2024-05-31 15:02] LABS: % Basophils 0.5 % (0-2); % Eosinophils 2.7 % (0-6); % Immature Granulocytes 0.7 % (0-0.5); % Monocytes 13.7 % (1.7-9.3); % Neutrophils 70.4 % (42.2-75.2); Absolute Eosinophils 0.2 10^3/uL (0-0.7); Absolute Immature Granulocytes 0.1 10^3/uL (0-0.05); Absolute Monocytes 1.1 10^3/uL (0.1-0.6); Absolute Neutrophils 5.8 10^3/uL (1.4-6.5); Hematocrit 25.8 % (39.0-52.0); Hemoglobin 8.8 g/dL (13.0-18.0); Mean Corp Hgb Conc. 34.1 g/dL (33.0-37.0); Mean Corpuscular Hgb 28.7 pg (27.0-31.0); Mean Platelet Volume 9.6 fL (7.4-10.4); Nucleated Red Blood Cells % 0 % (-); Platelet Count 365 10^3/uL (130-400); Red Blood Cell Count 3.07 10^6/uL (4.70-6.10); Red Cell Dist. Width 14.4 % (11.5-14.5); White Blood Cell Count 8.2 10^3/uL (4.8-10.8)
[2024-05-31 15:12] LABS: PT 28.2 Sec (11.4-14.6)
[2024-05-31 15:36] LABS: Blood Urea Nitrogen 75 mg/dl (9-20); Calcium 9.2 mg/dl (8.4-10.2); Carbon Dioxide 20 mmol/L (22-30); Chloride 106 mmol/L (98-107); Glucose 83 mg/dl (70-99); Phosphorus 6.4 mg/dl (2.5-4.5); Sodium 137 mmol/L (135-145); eGFR 15.52
== END ==
LOC: REG 13:42
PROVIDERS: ATTENDING PHYSICIAN Nurse Practitioner; OTHER PHYSICIAN Internal Medicine Cardiovascular Disease; REFERRING PHYSICIAN Internal Medicine
DX: D64.9 Anemia, unspecified (principal); I48.0 Paroxysmal atrial fibrillation; N18.4 Chronic kidney disease, stage 4 (severe)
CPT/HCPCS: 36415; 80069; 85025; 85610

== ENCOUNTER → 2024-06-28 14:31 | Outpatient (REF) | payer BC, SELFPAY ==
[2024-06-28 15:23] LABS: INR 2.98; PT 31.4 Sec (11.4-14.6)
[2024-06-28 15:41] LABS: Urine Protein 59 mg/dl (0-12)
[2024-06-28 15:56] LABS: % Basophils 0.4 % (0-2); % Eosinophils 2.4 % (0-6); % Immature Granulocytes 0.6 % (0-0.5); % Lymphocytes 13.5 % (20.5-51.1); % Monocytes 11.7 % (1.7-9.3); % Neutrophils 71.4 % (42.2-75.2); Absolute Eosinophils 0.2 10^3/uL (0-0.7); Absolute Immature Granulocytes 0.1 10^3/uL (0-0.05); Absolute Lymphocytes 1.3 10^3/uL (1.2-3.4); Absolute Monocytes 1.1 10^3/uL (0.1-0.6); Absolute Neutrophils 6.7 10^3/uL (1.4-6.5); Hematocrit 23.6 % (39.0-52.0); Hemoglobin 8.4 g/dL (13.0-18.0); Mean Corp Hgb Conc. 35.6 g/dL (33.0-37.0); Mean Corpuscular Volume 84.3 fL (80.0-94.0); Nucleated Red Blood Cells % 0 % (-); Platelet Count 359 10^3/uL (130-400); White Blood Cell Count 9.3 10^3/uL (4.8-10.8)
[2024-06-28 16:26] LABS: Vitamin D, 25-OH*** 30.7 ng/mL (30-80)
[2024-06-28 16:29] LABS: ALT (SGPT) 20 U/L (0-50); AST (SGOT) 32 U/L (17-59); Albumin 3.9 g/dl (3.5-5.0); Alkaline Phosphatase 67 U/L (38-126); Blood Urea Nitrogen 83 mg/dl (9-20); Calcium 9.3 mg/dl (8.4-10.2); Carbon Dioxide 21 mmol/L (22-30); Chloride 104 mmol/L (98-107); Glucose 164 mg/dl (70-99); Iron 67 ug/dl (49-181); Percent Saturation 19 % (20-50); Phosphorus 6.3 mg/dl (2.5-4.5); Potassium 4.7 mmol/L (3.5-5.1); Sodium 136 mmol/L (135-145); Total Bilirubin 0.3 mg/dl (0.2-1.3); Total Iron Binding Capacity 350 ug/dl (261-462); Total Protein 6.7 g/dl (6.3-8.2); eGFR 12.03
== END ==
LOC: REG 14:31
PROVIDERS: ATTENDING PHYSICIAN Internal Medicine Hematology & Oncology; FAMILY PHYSICIAN Nurse Practitioner; OTHER PHYSICIAN Internal Medicine Cardiovascular Disease; REFERRING PHYSICIAN Internal Medicine
DX: D50.9 Iron deficiency anemia, unspecified (principal); D63.1 Anemia in chronic kidney disease; N18.30 Chronic kidney disease, stage 3 unspecified; D47.2 Monoclonal gammopathy; N18.4 Chronic kidney disease, stage 4 (severe); N25.81 Secondary hyperparathyroidism of renal origin; I48.0 Paroxysmal atrial fibrillation
CPT/HCPCS: 36415; 80053; 80069; 82306; 82570; 82728; 82784; 83521; 83540; 83550; 83970; 84155; 84156; 84165; 85025; 85610; 86334

== ENCOUNTER → 2024-07-05 12:49 | Outpatient (REF) | payer BC, SELFPAY ==
[2024-07-05 14:17] LABS: Blood Urea Nitrogen 63 mg/dl (9-20); Calcium 9.4 mg/dl (8.4-10.2); Carbon Dioxide 21 mmol/L (22-30); Chloride 104 mmol/L (98-107); Glucose 176 mg/dl (70-99); Phosphorus 4.6 mg/dl (2.5-4.5); Potassium 4.4 mmol/L (3.5-5.1); Sodium 137 mmol/L (135-145); eGFR 15.05
== END ==
LOC: REG 12:49
PROVIDERS: ATTENDING PHYSICIAN Internal Medicine
DX: N17.9 Acute kidney failure, unspecified (principal)
CPT/HCPCS: 36415; 80069

== ENCOUNTER → 2024-07-13 10:34 | Outpatient (REF) | payer BC, SELFPAY ==
[2024-07-13 11:43] LABS: % Basophils 0.4 % (0-2); % Eosinophils 1.7 % (0-6); % Immature Granulocytes 0.7 % (0-0.5); % Lymphocytes 10.8 % (20.5-51.1); % Monocytes 11.7 % (1.7-9.3); % Neutrophils 74.7 % (42.2-75.2); Absolute Eosinophils 0.2 10^3/uL (0-0.7); Absolute Immature Granulocytes 0.1 10^3/uL (0-0.05); Absolute Monocytes 1.1 10^3/uL (0.1-0.6); Absolute Neutrophils 6.8 10^3/uL (1.4-6.5); Hematocrit 25.9 % (39.0-52.0); Hemoglobin 8.9 g/dL (13.0-18.0); Mean Corp Hgb Conc. 34.4 g/dL (33.0-37.0); Mean Corpuscular Hgb 29.3 pg (27.0-31.0); Mean Corpuscular Volume 85.2 fL (80.0-94.0); Mean Platelet Volume 9.7 fL (7.4-10.4); Nucleated Red Blood Cells % 0 % (-); Platelet Count 349 10^3/uL (130-400); Red Blood Cell Count 3.04 10^6/uL (4.70-6.10); Red Cell Dist. Width 14.6 % (11.5-14.5); White Blood Cell Count 9.2 10^3/uL (4.8-10.8)
[2024-07-13 11:49] LABS: INR 2.88; PT 30.6 Sec (11.4-14.6)
== END ==
LOC: REG 10:34
PROVIDERS: ATTENDING PHYSICIAN Internal Medicine Cardiovascular Disease; FAMILY PHYSICIAN Nurse Practitioner; OTHER PHYSICIAN Internal Medicine Hematology & Oncology
DX: D50.9 Iron deficiency anemia, unspecified (principal); D63.1 Anemia in chronic kidney disease; D47.2 Monoclonal gammopathy; N18.4 Chronic kidney disease, stage 4 (severe); I48.0 Paroxysmal atrial fibrillation
CPT/HCPCS: 36415; 85025; 85610

== ENCOUNTER → 2024-07-26 15:13 | Outpatient (REF) | payer BC, SELFPAY ==
[2024-07-26 16:24] LABS: % Basophils 0.3 % (0-2); % Eosinophils 1.3 % (0-6); % Immature Granulocytes 0.8 % (0-0.5); % Lymphocytes 9.7 % (20.5-51.1); % Monocytes 11.3 % (1.7-9.3); % Neutrophils 76.6 % (42.2-75.2); Absolute Eosinophils 0.1 10^3/uL (0-0.7); Absolute Immature Granulocytes 0.1 10^3/uL (0-0.05); Absolute Monocytes 1.2 10^3/uL (0.1-0.6); Absolute Neutrophils 8.2 10^3/uL (1.4-6.5); Hematocrit 27.2 % (39.0-52.0); Hemoglobin 9.3 g/dL (13.0-18.0); Mean Corp Hgb Conc. 34.2 g/dL (33.0-37.0); Mean Corpuscular Hgb 29.4 pg (27.0-31.0); Mean Corpuscular Volume 86.1 fL (80.0-94.0); Mean Platelet Volume 9.6 fL (7.4-10.4); Nucleated Red Blood Cells % 0 % (-); Platelet Count 397 10^3/uL (130-400); Red Blood Cell Count 3.16 10^6/uL (4.70-6.10); Red Cell Dist. Width 14.7 % (11.5-14.5); White Blood Cell Count 10.6 10^3/uL (4.8-10.8)
[2024-07-26 16:32] LABS: INR 2.96; PT 31.2 Sec (11.4-14.6)
== END ==
LOC: REG 15:13
PROVIDERS: ATTENDING PHYSICIAN Internal Medicine Hematology & Oncology; FAMILY PHYSICIAN Internal Medicine Cardiovascular Disease
DX: D50.9 Iron deficiency anemia, unspecified (principal); D63.1 Anemia in chronic kidney disease; D47.2 Monoclonal gammopathy; N18.4 Chronic kidney disease, stage 4 (severe); I48.0 Paroxysmal atrial fibrillation
CPT/HCPCS: 36415; 85025; 85610

== ENCOUNTER → 2024-08-10 11:10 | Outpatient (REF) | payer BC, SELFPAY ==
[2024-08-10 12:15] LABS: % Basophils 0.5 % (0-2); % Eosinophils 1.7 % (0-6); % Immature Granulocytes 0.8 % (0-0.5); % Lymphocytes 9.8 % (20.5-51.1); % Monocytes 12.8 % (1.7-9.3); % Neutrophils 74.4 % (42.2-75.2); Absolute Basophils 0.1 10^3/uL (0-0.2); Absolute Eosinophils 0.2 10^3/uL (0-0.7); Absolute Immature Granulocytes 0.1 10^3/uL (0-0.05); Absolute Lymphocytes 0.9 10^3/uL (1.2-3.4); Absolute Monocytes 1.2 10^3/uL (0.1-0.6); Absolute Neutrophils 6.9 10^3/uL (1.4-6.5); Hematocrit 30.3 % (39.0-52.0); Mean Corpuscular Hgb 28.7 pg (27.0-31.0); Mean Corpuscular Volume 86.8 fL (80.0-94.0); Mean Platelet Volume 9.5 fL (7.4-10.4); Nucleated Red Blood Cells % 0 % (-); Platelet Count 355 10^3/uL (130-400); Red Blood Cell Count 3.49 10^6/uL (4.70-6.10); Red Cell Dist. Width 14.2 % (11.5-14.5); White Blood Cell Count 9.3 10^3/uL (4.8-10.8)
[2024-08-10 12:17] LABS: INR 2.22; PT 24.8 Sec (11.4-14.6)
[2024-08-10 12:52] LABS: Iron 60 ug/dl (49-181)
[2024-08-10 13:02] LABS: Percent Saturation 16 % (20-50); Total Iron Binding Capacity 357 ug/dl (261-462)
== END ==
LOC: REG 11:10
PROVIDERS: ATTENDING PHYSICIAN Internal Medicine Hematology & Oncology; REFERRING PHYSICIAN Internal Medicine Cardiovascular Disease
DX: D50.9 Iron deficiency anemia, unspecified (principal); I48.0 Paroxysmal atrial fibrillation; D63.1 Anemia in chronic kidney disease; D47.2 Monoclonal gammopathy; N18.4 Chronic kidney disease, stage 4 (severe)
CPT/HCPCS: 36415; 82728; 83540; 83550; 85025; 85610

== ENCOUNTER → 2024-08-30 12:45 | Outpatient (REF) | payer BC, SELFPAY ==
[2024-08-30 13:54] LABS: % Basophils 0.4 % (0-2); % Eosinophils 1.8 % (0-6); % Immature Granulocytes 0.6 % (0-0.5); % Lymphocytes 8.3 % (20.5-51.1); % Monocytes 10.1 % (1.7-9.3); % Neutrophils 78.8 % (42.2-75.2); Absolute Eosinophils 0.2 10^3/uL (0-0.7); Absolute Immature Granulocytes 0.1 10^3/uL (0-0.05); Absolute Lymphocytes 0.8 10^3/uL (1.2-3.4); Absolute Neutrophils 7.4 10^3/uL (1.4-6.5); Hematocrit 27.8 % (39.0-52.0); Hemoglobin 9.1 g/dL (13.0-18.0); Mean Corp Hgb Conc. 32.7 g/dL (33.0-37.0); Mean Corpuscular Hgb 28.2 pg (27.0-31.0); Mean Corpuscular Volume 86.1 fL (80.0-94.0); Mean Platelet Volume 9.7 fL (7.4-10.4); Nucleated Red Blood Cells % 0 % (-); Platelet Count 364 10^3/uL (130-400); Red Blood Cell Count 3.23 10^6/uL (4.70-6.10); Red Cell Dist. Width 14.1 % (11.5-14.5); White Blood Cell Count 9.4 10^3/uL (4.8-10.8)
[2024-08-30 14:04] LABS: INR 2.43; PT 26.7 Sec (11.4-14.6)
[2024-08-30 14:17] LABS: ALT (SGPT) 22 U/L (0-50); AST (SGOT) 32 U/L (17-59); Albumin 3.8 g/dl (3.5-5.0); Alkaline Phosphatase 60 U/L (38-126); Blood Urea Nitrogen 55 mg/dl (9-20); Calcium 8.9 mg/dl (8.4-10.2); Carbon Dioxide 18 mmol/L (22-30); Chloride 107 mmol/L (98-107); Glucose 122 mg/dl (70-99); Phosphorus 4.7 mg/dl (2.5-4.5); Potassium 4.2 mmol/L (3.5-5.1); Sodium 141 mmol/L (135-145); Total Bilirubin 0.3 mg/dl (0.2-1.3); Total Protein 6.7 g/dl (6.3-8.2); eGFR 15.52
[2024-08-30 14:43] LABS: Glycohemoglobin (HgbA1c) 6.3 % (4.0-5.6)
== END ==
LOC: REG 12:45
PROVIDERS: ATTENDING PHYSICIAN Internal Medicine Cardiovascular Disease; FAMILY PHYSICIAN Nurse Practitioner; OTHER PHYSICIAN Internal Medicine Endocrinology, Diabetes & Metabolism; REFERRING PHYSICIAN Internal Medicine
DX: N17.9 Acute kidney failure, unspecified (principal); I48.0 Paroxysmal atrial fibrillation; E11.21 Type 2 diabetes mellitus with diabetic nephropathy
CPT/HCPCS: 36415; 80053; 80069; 83036; 85025; 85610

== ENCOUNTER → 2024-09-06 12:30 | Outpatient (REF) | payer BC, SELFPAY ==
[2024-09-06 13:08] LABS: % Basophils 0.6 % (0-2); % Eosinophils 2.3 % (0-6); % Immature Granulocytes 0.8 % (0-0.5); % Lymphocytes 12.6 % (20.5-51.1); % Monocytes 13.1 % (1.7-9.3); % Neutrophils 70.6 % (42.2-75.2); Absolute Basophils 0.1 10^3/uL (0-0.2); Absolute Eosinophils 0.2 10^3/uL (0-0.7); Absolute Immature Granulocytes 0.1 10^3/uL (0-0.05); Absolute Lymphocytes 1.1 10^3/uL (1.2-3.4); Absolute Monocytes 1.2 10^3/uL (0.1-0.6); Absolute Neutrophils 6.4 10^3/uL (1.4-6.5); Hematocrit 28.5 % (39.0-52.0); Hemoglobin 9.6 g/dL (13.0-18.0); Mean Corp Hgb Conc. 33.7 g/dL (33.0-37.0); Mean Corpuscular Hgb 28.3 pg (27.0-31.0); Mean Corpuscular Volume 84.1 fL (80.0-94.0); Mean Platelet Volume 9.4 fL (7.4-10.4); Nucleated Red Blood Cells % 0 % (-); Platelet Count 363 10^3/uL (130-400); Red Blood Cell Count 3.39 10^6/uL (4.70-6.10)
[2024-09-06 13:54] LABS: Iron 51 ug/dl (49-181)
[2024-09-06 14:04] LABS: Percent Saturation 15 % (20-50); Total Iron Binding Capacity 336 ug/dl (261-462)
== END ==
LOC: REG 12:30
PROVIDERS: ATTENDING PHYSICIAN Internal Medicine Hematology & Oncology; FAMILY PHYSICIAN Nurse Practitioner
DX: D50.9 Iron deficiency anemia, unspecified (principal); D63.1 Anemia in chronic kidney disease; D47.2 Monoclonal gammopathy; N18.4 Chronic kidney disease, stage 4 (severe)
CPT/HCPCS: 36415; 82728; 83540; 83550; 85025

== ENCOUNTER → 2024-10-05 12:21 | Outpatient (REF) | payer BC, SELFPAY ==
[2024-10-05 13:30] LABS: % Basophils 0.4 % (0-2); % Immature Granulocytes 0.6 % (0-0.5); % Lymphocytes 7.5 % (20.5-51.1); % Monocytes 8.6 % (1.7-9.3); % Neutrophils 81.9 % (42.2-75.2); Absolute Eosinophils 0.1 10^3/uL (0-0.7); Absolute Immature Granulocytes 0.1 10^3/uL (0-0.05); Absolute Lymphocytes 0.8 10^3/uL (1.2-3.4); Absolute Monocytes 0.9 10^3/uL (0.1-0.6); Absolute Neutrophils 8.8 10^3/uL (1.4-6.5); Hematocrit 27.7 % (39.0-52.0); Hemoglobin 9.2 g/dL (13.0-18.0); Mean Corp Hgb Conc. 33.2 g/dL (33.0-37.0); Mean Corpuscular Hgb 28.5 pg (27.0-31.0); Mean Corpuscular Volume 85.8 fL (80.0-94.0); Mean Platelet Volume 9.8 fL (7.4-10.4); Nucleated Red Blood Cells % 0 % (-); Platelet Count 390 10^3/uL (130-400); Red Blood Cell Count 3.23 10^6/uL (4.70-6.10); Red Cell Dist. Width 14.1 % (11.5-14.5); White Blood Cell Count 10.7 10^3/uL (4.8-10.8)
[2024-10-05 13:41] LABS: INR 2.31; PT 25.9 Sec (11.4-14.6)
[2024-10-05 13:51] LABS: Iron 29 ug/dl (49-181)
[2024-10-05 14:00] LABS: Percent Saturation 9 % (20-50); Total Iron Binding Capacity 316 ug/dl (261-462)
== END ==
LOC: REG 12:21
PROVIDERS: ATTENDING PHYSICIAN Internal Medicine Cardiovascular Disease; FAMILY PHYSICIAN Nurse Practitioner; OTHER PHYSICIAN Internal Medicine Hematology & Oncology
DX: I48.0 Paroxysmal atrial fibrillation (principal); D50.9 Iron deficiency anemia, unspecified; D63.1 Anemia in chronic kidney disease; D47.2 Monoclonal gammopathy; N18.4 Chronic kidney disease, stage 4 (severe)
CPT/HCPCS: 36415; 82728; 83540; 83550; 85025; 85610

== ENCOUNTER → 2024-11-07 12:11 | Outpatient (REF) | payer BC, SELFPAY ==
[2024-11-07 13:21] LABS: % Basophils 0.4 % (0-2); % Eosinophils 1.3 % (0-6); % Immature Granulocytes 1.3 % (0-0.5); % Lymphocytes 7.4 % (20.5-51.1); % Monocytes 9.1 % (1.7-9.3); % Neutrophils 80.5 % (42.2-75.2); Absolute Eosinophils 0.1 10^3/uL (0-0.7); Absolute Immature Granulocytes 0.1 10^3/uL (0-0.05); Absolute Lymphocytes 0.7 10^3/uL (1.2-3.4); Absolute Monocytes 0.9 10^3/uL (0.1-0.6); Absolute Neutrophils 7.5 10^3/uL (1.4-6.5); Hematocrit 29.6 % (39.0-52.0); Hemoglobin 9.5 g/dL (13.0-18.0); Mean Corp Hgb Conc. 32.1 g/dL (33.0-37.0); Mean Corpuscular Hgb 27.7 pg (27.0-31.0); Mean Corpuscular Volume 86.3 fL (80.0-94.0); Mean Platelet Volume 9.6 fL (7.4-10.4); Nucleated Red Blood Cells % 0 % (-); Platelet Count 377 10^3/uL (130-400); Red Blood Cell Count 3.43 10^6/uL (4.70-6.10); Red Cell Dist. Width 15.3 % (11.5-14.5); White Blood Cell Count 9.3 10^3/uL (4.8-10.8)
[2024-11-07 13:30] LABS: INR 2.75; PT 29.1 Sec (11.4-14.6)
[2024-11-07 13:45] LABS: Iron 66 ug/dl (49-181)
[2024-11-07 13:55] LABS: Percent Saturation 20 % (20-50); Total Iron Binding Capacity 316 ug/dl (261-462)
== END ==
LOC: REG 12:11
PROVIDERS: ATTENDING PHYSICIAN Internal Medicine Hematology & Oncology; FAMILY PHYSICIAN Internal Medicine Cardiovascular Disease
DX: D50.9 Iron deficiency anemia, unspecified (principal); D63.1 Anemia in chronic kidney disease; D47.2 Monoclonal gammopathy; N18.4 Chronic kidney disease, stage 4 (severe); I48.0 Paroxysmal atrial fibrillation
CPT/HCPCS: 36415; 82728; 83540; 83550; 85025; 85610

== ENCOUNTER → 2024-11-28 11:53 | Outpatient (REF) | payer BC, SELFPAY ==
[2024-11-28 12:50] LABS: % Basophils 0.6 % (0-2); % Eosinophils 2.2 % (0-6); % Immature Granulocytes 0.5 % (0-0.5); % Lymphocytes 10.7 % (20.5-51.1); % Monocytes 11.2 % (1.7-9.3); % Neutrophils 74.8 % (42.2-75.2); Absolute Basophils 0.1 10^3/uL (0-0.2); Absolute Eosinophils 0.2 10^3/uL (0-0.7); Absolute Lymphocytes 0.9 10^3/uL (1.2-3.4); Absolute Neutrophils 6.6 10^3/uL (1.4-6.5); Hematocrit 28.9 % (39.0-52.0); Hemoglobin 9.6 g/dL (13.0-18.0); Mean Corp Hgb Conc. 33.2 g/dL (33.0-37.0); Mean Corpuscular Hgb 28.8 pg (27.0-31.0); Mean Corpuscular Volume 86.8 fL (80.0-94.0); Nucleated Red Blood Cells % 0 % (-); Platelet Count 320 10^3/uL (130-400); Red Blood Cell Count 3.33 10^6/uL (4.70-6.10); Red Cell Dist. Width 15.3 % (11.5-14.5); White Blood Cell Count 8.8 10^3/uL (4.8-10.8)
[2024-11-28 13:29] LABS: Iron 74 ug/dl (49-181)
[2024-11-28 13:38] LABS: Percent Saturation 22 % (20-50); Total Iron Binding Capacity 322 ug/dl (261-462)
== END ==
LOC: REG 11:53
PROVIDERS: ATTENDING PHYSICIAN Internal Medicine Hematology & Oncology; FAMILY PHYSICIAN Nurse Practitioner
DX: D50.9 Iron deficiency anemia, unspecified (principal); D63.1 Anemia in chronic kidney disease; D47.2 Monoclonal gammopathy; N18.4 Chronic kidney disease, stage 4 (severe)
CPT/HCPCS: 36415; 82728; 83540; 83550; 85025

== ENCOUNTER → 2024-12-07 12:37 | Outpatient (REF) | payer BC, SELFPAY ==
[2024-12-07 15:01] LABS: INR 2.51; PT 27.5 Sec (11.4-14.6)
== END ==
LOC: REG 12:37
PROVIDERS: ATTENDING PHYSICIAN Internal Medicine Cardiovascular Disease
DX: Z95.2 Presence of prosthetic heart valve (principal)
CPT/HCPCS: 36415; 85610

== ENCOUNTER → 2024-12-27 13:17 | Outpatient (REF) | payer BC, SELFPAY ==
[2024-12-27 14:10] LABS: % Basophils 0.5 % (0-2); % Eosinophils 1.9 % (0-6); % Lymphocytes 11.3 % (20.5-51.1); % Neutrophils 71.3 % (42.2-75.2); Absolute Basophils 0.1 10^3/uL (0-0.2); Absolute Eosinophils 0.2 10^3/uL (0-0.7); Absolute Immature Granulocytes 0.1 10^3/uL (0-0.05); Absolute Lymphocytes 1.1 10^3/uL (1.2-3.4); Absolute Monocytes 1.3 10^3/uL (0.1-0.6); Absolute Neutrophils 6.7 10^3/uL (1.4-6.5); Hematocrit 29.1 % (39.0-52.0); Hemoglobin 9.7 g/dL (13.0-18.0); Mean Corp Hgb Conc. 33.3 g/dL (33.0-37.0); Mean Corpuscular Volume 87.1 fL (80.0-94.0); Mean Platelet Volume 9.4 fL (7.4-10.4); Nucleated Red Blood Cells % 0 % (-); Platelet Count 399 10^3/uL (130-400); Red Blood Cell Count 3.34 10^6/uL (4.70-6.10); White Blood Cell Count 9.4 10^3/uL (4.8-10.8)
[2024-12-27 16:38] LABS: Calcium 8.7 mg/dl (8.4-10.2)
[2024-12-27 16:39] LABS: Blood Urea Nitrogen 57 mg/dl (9-20); Calcium 8.8 mg/dl (8.4-10.2); Carbon Dioxide 19 mmol/L (22-30); Chloride 107 mmol/L (98-107); Glucose 92 mg/dl (70-99); Iron 61 ug/dl (49-181); Phosphorus 3.9 mg/dl (2.5-4.5); Potassium 4.6 mmol/L (3.5-5.1); Sodium 140 mmol/L (135-145); eGFR 15.05
[2024-12-27 16:47] LABS: Percent Saturation 18 % (20-50); Total Iron Binding Capacity 324 ug/dl (261-462)
[2024-12-27 16:53] LABS: Protein/creatinine Ratio 1.6; Urine Protein 116 mg/dl
[2024-12-29 14:37] LABS: Intact PTH 259.6 pg/ml (13.6-85.8)
== END ==
LOC: REG 13:17
PROVIDERS: ATTENDING PHYSICIAN Internal Medicine Hematology & Oncology; REFERRING PHYSICIAN Internal Medicine
DX: D50.9 Iron deficiency anemia, unspecified (principal); D63.1 Anemia in chronic kidney disease; D47.2 Monoclonal gammopathy; N18.4 Chronic kidney disease, stage 4 (severe)
CPT/HCPCS: 36415; 80069; 82570; 82728; 83540; 83550; 83970; 84156; 85025

== ENCOUNTER → 2025-01-12 13:14 | Outpatient (REF) | payer BC, SELFPAY ==
[2025-01-12 14:31] LABS: INR 2.47; PT 26.8 Sec (11.4-14.6)
== END ==
LOC: REG 13:14
PROVIDERS: ATTENDING PHYSICIAN Internal Medicine Cardiovascular Disease
DX: I48.0 Paroxysmal atrial fibrillation (principal)
CPT/HCPCS: 36415; 85610

== ENCOUNTER → 2025-01-25 06:18 | Outpatient (REF) | payer BC, SELFPAY ==
[2025-01-25 07:08] LABS: % Basophils 0.4 % (0-2); % Eosinophils 2.6 % (0-6); % Immature Granulocytes 1.2 % (0-0.5); % Lymphocytes 14.8 % (20.5-51.1); % Monocytes 11.6 % (1.7-9.3); % Neutrophils 69.4 % (42.2-75.2); Absolute Eosinophils 0.3 10^3/uL (0-0.7); Absolute Immature Granulocytes 0.1 10^3/uL (0-0.05); Absolute Lymphocytes 1.5 10^3/uL (1.2-3.4); Absolute Monocytes 1.2 10^3/uL (0.1-0.6); Absolute Neutrophils 7.1 10^3/uL (1.4-6.5); Hematocrit 30.6 % (39.0-52.0); Hemoglobin 9.8 g/dL (13.0-18.0); Mean Corpuscular Hgb 28.4 pg (27.0-31.0); Mean Corpuscular Volume 88.7 fL (80.0-94.0); Mean Platelet Volume 9.3 fL (7.4-10.4); Nucleated Red Blood Cells % 0 % (-); Platelet Count 395 10^3/uL (130-400); Red Blood Cell Count 3.45 10^6/uL (4.70-6.10); Red Cell Dist. Width 14.6 % (11.5-14.5); White Blood Cell Count 10.2 10^3/uL (4.8-10.8)
[2025-01-25 07:47] LABS: Iron 68 ug/dl (49-181)
[2025-01-25 07:56] LABS: Percent Saturation 21 % (20-50); Total Iron Binding Capacity 322 ug/dl (261-462)
== END ==
LOC: REG 06:18
PROVIDERS: ATTENDING PHYSICIAN Internal Medicine Hematology & Oncology; FAMILY PHYSICIAN Nurse Practitioner
DX: D50.9 Iron deficiency anemia, unspecified (principal); D63.1 Anemia in chronic kidney disease; D47.2 Monoclonal gammopathy; N18.4 Chronic kidney disease, stage 4 (severe)
CPT/HCPCS: 36415; 82728; 83540; 83550; 85025

== ENCOUNTER → 2025-02-10 09:47 | Outpatient (REF) | payer BC, MEDICARE, SELFPAY ==
[2025-02-10 11:34] LABS: INR 3.04; PT 31.3 Sec (11.4-14.6)
== END ==
LOC: REG 09:47
PROVIDERS: ATTENDING PHYSICIAN Internal Medicine Cardiovascular Disease
DX: I48.0 Paroxysmal atrial fibrillation (principal)
CPT/HCPCS: 36415; 85610

== ENCOUNTER → 2025-02-21 12:06 | Outpatient (REF) | payer BC, SELFPAY ==
[2025-02-21 14:03] LABS: % Basophils 0.5 % (0-2); % Eosinophils 1.8 % (0-6); % Immature Granulocytes 1.1 % (0-0.5); % Lymphocytes 10.5 % (20.5-51.1); % Monocytes 11.6 % (1.7-9.3); % Neutrophils 74.5 % (42.2-75.2); Absolute Eosinophils 0.1 10^3/uL (0-0.7); Absolute Immature Granulocytes 0.1 10^3/uL (0-0.05); Absolute Lymphocytes 0.8 10^3/uL (1.2-3.4); Absolute Monocytes 0.9 10^3/uL (0.1-0.6); Hematocrit 28.9 % (39.0-52.0); Hemoglobin 9.3 g/dL (13.0-18.0); Mean Corp Hgb Conc. 32.2 g/dL (33.0-37.0); Mean Corpuscular Hgb 28.8 pg (27.0-31.0); Mean Corpuscular Volume 89.5 fL (80.0-94.0); Mean Platelet Volume 9.7 fL (7.4-10.4); Nucleated Red Blood Cells % 0 % (-); Platelet Count 365 10^3/uL (130-400); Red Blood Cell Count 3.23 10^6/uL (4.70-6.10); Red Cell Dist. Width 15.6 % (11.5-14.5)
[2025-02-21 14:30] LABS: Iron 51 ug/dl (49-181)
[2025-02-21 14:40] LABS: Percent Saturation 15 % (20-50); Total Iron Binding Capacity 334 ug/dl (261-462)
== END ==
LOC: REG 12:06
PROVIDERS: ATTENDING PHYSICIAN Internal Medicine Hematology & Oncology; FAMILY PHYSICIAN Nurse Practitioner
DX: D50.9 Iron deficiency anemia, unspecified (principal); D63.1 Anemia in chronic kidney disease; D47.2 Monoclonal gammopathy; N18.4 Chronic kidney disease, stage 4 (severe)
CPT/HCPCS: 36415; 82728; 83540; 83550; 85025

== ENCOUNTER → 2025-03-03 10:13 | Outpatient (REF) | payer BC, SELFPAY ==
[2025-03-03 11:59] LABS: % Basophils 0.7 % (0-2); % Eosinophils 1.7 % (0-6); % Lymphocytes 10.4 % (20.5-51.1); % Monocytes 10.5 % (1.7-9.3); % Neutrophils 75.7 % (42.2-75.2); Absolute Basophils 0.1 10^3/uL (0-0.2); Absolute Eosinophils 0.2 10^3/uL (0-0.7); Absolute Immature Granulocytes 0.1 10^3/uL (0-0.05); Absolute Lymphocytes 0.9 10^3/uL (1.2-3.4); Absolute Monocytes 0.9 10^3/uL (0.1-0.6); Absolute Neutrophils 6.6 10^3/uL (1.4-6.5); Hematocrit 29.3 % (39.0-52.0); Hemoglobin 9.5 g/dL (13.0-18.0); Mean Corp Hgb Conc. 32.4 g/dL (33.0-37.0); Mean Corpuscular Volume 89.3 fL (80.0-94.0); Mean Platelet Volume 9.7 fL (7.4-10.4); Nucleated Red Blood Cells % 0 % (-); Platelet Count 355 10^3/uL (130-400); Red Blood Cell Count 3.28 10^6/uL (4.70-6.10); Red Cell Dist. Width 15.7 % (11.5-14.5); White Blood Cell Count 8.8 10^3/uL (4.8-10.8)
[2025-03-03 12:17] LABS: APTT 43.5 Sec (23.4-35.0); INR 2.96; PT 30.7 Sec (11.4-14.6)
[2025-03-03 12:26] LABS: ALT (SGPT) 25 U/L (0-50); AST (SGOT) 33 U/L (17-59); Albumin 3.9 g/dl (3.5-5.0); Alkaline Phosphatase 59 U/L (38-126); Blood Urea Nitrogen 64 mg/dl (9-20); Calcium 9.8 mg/dl (8.4-10.2); Carbon Dioxide 22 mmol/L (22-30); Chloride 109 mmol/L (98-107); Glucose 136 mg/dl (70-99); Potassium 4.5 mmol/L (3.5-5.1); Sodium 142 mmol/L (135-145); Total Bilirubin 0.5 mg/dl (0.2-1.3); Total Protein 6.6 g/dl (6.3-8.2); eGFR 15.93
[2025-03-03 12:29] LABS: Glycohemoglobin (HgbA1c) 6.2 % (4.0-5.6)
== END ==
LOC: REG 10:13
PROVIDERS: ATTENDING PHYSICIAN Internal Medicine Cardiovascular Disease; FAMILY PHYSICIAN Nurse Practitioner; REFERRING PHYSICIAN Internal Medicine Endocrinology, Diabetes & Metabolism
DX: I48.0 Paroxysmal atrial fibrillation (principal); R42 Dizziness and giddiness; E11.21 Type 2 diabetes mellitus with diabetic nephropathy
CPT/HCPCS: 36415; 80053; 83036; 85025; 85610; 85730

== ENCOUNTER → 2025-03-06 12:09 | Outpatient (REF) | payer BC, MEDICARE, SELFPAY ==
[2025-03-06 13:32] LABS: INR 3.33; PT 33.6 Sec (11.4-14.6)
[2025-03-06 13:46] LABS: Albumin 3.5 g/dl (3.5-5.0); Blood Urea Nitrogen 63 mg/dl (9-20); Calcium 9.5 mg/dl (8.4-10.2); Carbon Dioxide 24 mmol/L (22-30); Chloride 106 mmol/L (98-107); Glucose 241 mg/dl (70-99); Phosphorus 5.1 mg/dl (2.5-4.5); Potassium 4.8 mmol/L (3.5-5.1); Sodium 139 mmol/L (135-145); eGFR 14.95
== END ==
LOC: REG 12:09
PROVIDERS: ATTENDING PHYSICIAN Internal Medicine Cardiovascular Disease; FAMILY PHYSICIAN Nurse Practitioner; REFERRING PHYSICIAN Internal Medicine
DX: I48.0 Paroxysmal atrial fibrillation (principal); N18.4 Chronic kidney disease, stage 4 (severe); I10 Essential (primary) hypertension; D64.9 Anemia, unspecified; N17.9 Acute kidney failure, unspecified
CPT/HCPCS: 36415; 80069; 85610

== ENCOUNTER 2025-03-07 07:31 | Day surgery (SDC) | payer BC, MEDICARE, SELFPAY | END 2025-03-07 09:11 | disposition home or self-care (01) | LOC: CATH 07:31 | PROVIDERS: ATTENDING PHYSICIAN Student in an Organized Health Care Education/Training Program; FAMILY PHYSICIAN Nurse Practitioner; OTHER PHYSICIAN Internal Medicine Cardiovascular Disease | DX: I48.0 Paroxysmal atrial fibrillation (principal); I13.0 Hypertensive heart and chronic kidney disease with heart failure and stage 1 through stage 4 chronic kidney disease, or unspecified chronic kidney disease; I50.32 Chronic diastolic (congestive) heart failure; N18.4 Chronic kidney disease, stage 4 (severe); E11.22 Type 2 diabetes mellitus with diabetic chronic kidney disease; Z79.4 Long term (current) use of insulin; Z86.73 Personal history of transient ischemic attack (TIA), and cerebral infarction without residual deficits; E78.5 Hyperlipidemia, unspecified; G47.33 Obstructive sleep apnea (adult) (pediatric); Z79.01 Long term (current) use of anticoagulants | CPT/HCPCS: 92960; 93005 ==

== ENCOUNTER 2025-03-13 12:52 | Emergency (ER) | payer BC, SELFPAY ==
[2025-03-13 13:06] VITALS: BP 116/76
--- NOTE | 2025-03-13 13:20 | ED.GENMED ---
History of Present Illness
General
Chief Complaint: Fall
Time Seen by Provider: 03/13/25 13:19
History of Present Illness
History of Present Illness:
TIME OF INITIAL ENCOUNTER: 1:25 PM
HPI: The patient was sent here for evaluation from urgent care. This past Wednesday (3 days ago), the patient fell after having his foot caught on a rug. He injured the right side of his torso. He reports increasing pain, increasing shortness of
breath, and notes increasing abdominal distention. He is on Coumadin and has history of atrial fibrillation. The patient reports having severe intolerance to dye (severe joint pain). He also states that he struck his head. He also reports
feeling constipated despite trying Colace.
EXAM:
GENERAL: Well appearing in no distress
CERVICAL SPINE: No midline c-spine tenderness with excellent AROM
HEAD: No evidence of craniofacial trauma
CHEST: No chest wall tenderness, normal heart sounds
LUNGS: Equal lung sounds, no respiratory distress, moderate right chest wall tenderness
ABDOMEN: Elevated BMI, diffuse abdominal tenderness more so on the right, very subtle ecchymosis to the right side of the anterior abdominal wall, mild abdominal distention
EXTREMITIES: Normal active range of motion, no tenderness
NEURO: Excellent strength all extremities, appropriate mental status, normal speech/language
NUMBER AND COMPLEXITY OF PROBLEMS ADDRESSED AT THE ENCOUNTER
� Chronic conditions affecting care: A-fib on Coumadin, CHF, high blood pressure, see
� Acute Exacerbation and/or Progression of Chronic Illness: This is an acute problem
� Differential Diagnosis includes: Rib fractures, chest/abdominal wall contusion, liver laceration, intracranial hemorrhage, minor head injury
AMOUNT AND/OR COMPLEXITY OF DATA TO BE REVIEWED AND ANALYZED
� I performed an independent evaluation of and my interpretation is:
EKG:
CT: CAT scan of the brain shows no acute abnormality, CAT scan of the chest abdomen pelvis show minimally displaced right-sided rib fractures at ribs 8 and 9
X-rays:
Laboratory Studies: White count normal, hemoglobin 11.3 up from 9.5 10 days ago, INR 3.3, bicarb 18, creatinine 4.0 which is near her recent baseline
Other:
� Review of other/old records: I reviewed records, the patient was seen here less than 1 week ago with a cardioversion by Dr. Chiang. He had pacemaker implant 5 weeks ago.
� Clinical information was obtained by an independent historian: I spoke to at bedside
� Prescriptions/Medications Considered but not given:considered NSAIDs however the patient has CKD
� Further testing considered but not performed:
RISK OF COMPLICATIONS AND/OR MORBIDITY OR MORTALITY OF PATIENT MANAGEMENT
� Social determinants of health affecting care: Lives at home
� Discussion with other providers:
� Escalation of care including admission/observation vs risk of discharge considered:
ANY OTHER UPDATES:
5 PM: CT imaging shows 2 rib fractures. He reports increasing pain. Will give a dose of Dilaudid now and reassess.
6:30 PM: The patient received Dilaudid earlier and feels somewhat improved. He was given incentive spirometer and will also give prescription for narcotic analgesia.
Past History
Past History
ED Past Medical History: CAD, CHF, HTN, Hypercholesterolemia, IDDM, Valvular disease and Other (JEREMIAH-no CPAP)
ED Past Surgical History: Cardiac (CABG, Aortic valve replaced) and Orthopedic
Social History
Tobacco: Non-smoker
Alcohol: None
Drug: None
Personal:
Living: with family
Employment: Other
Family History
Family History: Other
Phy Exam
Physical Exam
Physical Exam:
See HPI
Course
Orders/Labs/Results
Orders:
Orders
03/13/25 13:20
CT Chest/abd/pel Wo Iv Cont Urgent
Reason For Exam: R pain tender trauma; dye allergy; CKD
03/13/25 13:21
CT Head W/o Iv Contrast Urgent
Comment:
Reason For Exam: head injury coumadin
03/13/25 13:38
Complete Blood Count/With Diff Urgent
Prothrombin Time Urgent
03/13/25 14:15
Comprehensive Metabolic Panel Urgent
Lipase Urgent
03/13/25 17:00
HYDROmorphone [Dilaudid] 0.5 mg IV NOW STA
Ondansetron Injectable [Zofran] 4 mg IV NOW STA
03/13/25 18:26
Incentive Spirometry [Rx Incentive Spirometry] [RESP] Urgent
Frequency: q1h while awake
Abnormal Lab Results
03/13/25 03/13/25
13:38 14:15
RBC 3.92 L 10^6/uL
(4.70-6.10)
Hgb 11.3 L g/dL
(13.0-18.0)
Hct 34.4 L %
(39.0-52.0)
MCHC 32.8 L g/dL
(33.0-37.0)
RDW 15.5 H %
(11.5-14.5)
Plt Count 403 H 10^3/uL
(130-400)
Abs Immat Gran (auto) 0.1 H 10^3/uL
(0-0.05)
Absolute Neuts (auto) 7.7 H 10^3/uL
(1.4-6.5)
Absolute Lymphs (auto) 1.0 L 10^3/uL
(1.2-3.4)
Absolute Monos (auto) 1.4 H 10^3/uL
(0.1-0.6)
Immature Gran % 0.6 H %
(0-0.5)
Lymphocytes % 9.9 L %
(20.5-51.1)
Monocytes % 13.2 H %
(1.7-9.3)
PT 33.6 H Sec
(11.4-14.6)
Chloride 108 H mmol/L
(98-107)
Carbon Dioxide 18 L mmol/L
(22-30)
BUN 72 H mg/dl
(9-20)
Creatinine 4.0 H mg/dL
(0.7-1.3)
03/13/25 13:38
03/13/25 14:15
Vital Signs
Initial and Last Documented VS:
Initial Vital Signs
Temp Pulse Resp BP Pulse Ox
36.4 C 75 20 116/76 96
03/13/25 13:06 03/13/25 13:06 03/13/25 13:06 03/13/25 13:06 03/13/25 13:06
Last Documented Vital Signs
Temp Pulse Resp BP Pulse Ox
36.4 C 66 16 113/53 96
03/13/25 13:06 03/13/25 18:15 03/13/25 18:15 03/13/25 18:00 03/13/25 13:40
*Critical Care Note
Total Time (30-74mins, 75-104mins- exclusive of procedures): Not Applicable
ED Attending Note
-
Portions of this chart may have been created with voice recognition software.� Occasional wrong word or��sound alike� substitutions may have occurred due to the inherent limitations of voice recognition software.
Discharge Plan
Departure
Patient Disposition: Home (Routine Discharge)
Date of Disposition: 03/13/25
Time of Disposition: 18:22
Patient with high blood pressure during this ER visit?: Yes
Discharge Problem:
Closed rib fracture
Instructions: BLOOD PRESSURE, Rib Fracture
Prescriptions:
New
oxycodone-acetaminophen [Percocet] 5-325 mg tablet
1 - 2 tab PO Q6HPRN PRN (Reason: pain) Qty: 14 0RF
No Action
amlodipine 10 MG tablet
10 mg PO DAILY
insulin aspart U-100 [Novolog FlexPen U-100 Insulin] 300 UNITS/3 ML insulin pen
16 - 24 sliding scale dose SC AC
atorvastatin 40 MG tablet
40 mg PO DAILY
fenofibric acid (choline) 135 MG capsule,delayed release(DR/EC)
135 mg PO DAILY
warfarin [Jantoven] 5 MG tablet
2.5 mg PO WETHFRSA
warfarin [Jantoven] 5 MG tablet
5 mg PO SUMOTU
dutasteride [Avodart] 0.5 MG capsule
0.5 mg PO DAILY
hydralazine 50 MG tablet
75 mg PO TID
furosemide 40 MG tablet
40 mg PO BID Qty: 60 2RF
calcitriol 0.25 MCG capsule
0.5 mcg PO Q48H
Patient Comments:
03/22/25: Patient takes this in addition to normal 0.5mcg dose every other day
sodium bicarbonate 650 mg Tablet
1,300 mg PO BID
calcitriol 0.5 mcg Capsule
0.75 mcg PO DAILY
insulin glargine [Semglee U-100 Insulin] 100 unit/mL Solution
16 unit SC HS
acetaminophen [Tylenol Arthritis Pain] 650 mg Tablet Extended Release
650 mg PO Q8HPRN PRN (Reason: mild pain)
docusate sodium 100 mg Capsule
100 mg PO TIDPRN PRN (Reason: constipation)
Referrals:
Arlene Roman CRNP [Family Provider] -
Activity Restrictions/Additional Instructions:
Your INR is 3.3. CAT scan of the brain shows no traumatic abnormality. CAT scan of the chest, abdomen, and pelvis show mildly displaced rib fractures of ribs 8 and 9 on the right. Use the incentive spirometer several times a day to help exercise
your lungs. I sent a prescription for to your pharmacy. Increase the use of Colace and you can also add MiraLAX twice a day to help treat constipation. Narcotic pain medication can make constipation worse.
Interventions
Interventions:
*Risk Screen - Suicide Last Done: 03/13/25 13:06
*General Assessment Last Done: 03/13/25 13:06
*Neglect/Abuse Screening Last Done: 03/13/25 13:06
*ED- Fall Risk Assessment Last Done: 03/13/25 13:34
*ED COVID-19 Vaccine History Last Done: 03/13/25 13:06
ED-Musculoskeletal Assessment Last Done: 03/13/25 17:18
ED- Neurological Assessment Last Done: 03/13/25 13:40
ED-Skin Assessment Last Done: 03/13/25 13:40
Discharge Date and Time
Print Language: ANGOLAN
[2025-03-13 13:31] VITALS: BP 139/110
[2025-03-13 13:32] VITALS: BMI 29.6
[2025-03-13 13:46] LABS: % Basophils 0.6 % (0-2); % Eosinophils 1.8 % (0-6); % Immature Granulocytes 0.6 % (0-0.5); % Lymphocytes 9.9 % (20.5-51.1); % Monocytes 13.2 % (1.7-9.3); % Neutrophils 73.9 % (42.2-75.2); Absolute Basophils 0.1 10^3/uL (0-0.2); Absolute Eosinophils 0.2 10^3/uL (0-0.7); Absolute Immature Granulocytes 0.1 10^3/uL (0-0.05); Absolute Monocytes 1.4 10^3/uL (0.1-0.6); Absolute Neutrophils 7.7 10^3/uL (1.4-6.5); Hematocrit 34.4 % (39.0-52.0); Hemoglobin 11.3 g/dL (13.0-18.0); Mean Corp Hgb Conc. 32.8 g/dL (33.0-37.0); Mean Corpuscular Hgb 28.8 pg (27.0-31.0); Mean Corpuscular Volume 87.8 fL (80.0-94.0); Mean Platelet Volume 9.7 fL (7.4-10.4); Nucleated Red Blood Cells % 0 % (-); Platelet Count 403 10^3/uL (130-400); Red Blood Cell Count 3.92 10^6/uL (4.70-6.10); Red Cell Dist. Width 15.5 % (11.5-14.5); White Blood Cell Count 10.4 10^3/uL (4.8-10.8)
[2025-03-13 14:00] LABS: INR 3.33; PT 33.6 Sec (11.4-14.6)
[2025-03-13 14:49] LABS: ALT (SGPT) 27 U/L (0-50); AST (SGOT) 38 U/L (17-59); Albumin 4.2 g/dl (3.5-5.0); Alkaline Phosphatase 55 U/L (38-126); Blood Urea Nitrogen 72 mg/dl (9-20); Calcium 9.8 mg/dl (8.4-10.2); Carbon Dioxide 18 mmol/L (22-30); Chloride 108 mmol/L (98-107); Estimated Creatinine Clearance 15 ml/min; Glucose 94 mg/dl (70-99); Lipase 202 U/L (23-300); Potassium 4.3 mmol/L (3.5-5.1); Sodium 142 mmol/L (135-145); Total Bilirubin 0.6 mg/dl (0.2-1.3); Total Protein 7.1 g/dl (6.3-8.2); eGFR 14.51
[2025-03-13 15:00] VITALS: BP 169/68
[2025-03-13 16:00] VITALS: BP 176/65
[2025-03-13 17:00] VITALS: BP 180/68
[2025-03-13] MEDS: ZOFRAN 4 MG IV (17:12)
[2025-03-13] MEDS: DILAUDID 0.5 MG IV (17:12)
[2025-03-13 18:00] VITALS: BP 113/53
== END 2025-03-13 18:58 | disposition home or self-care (01) ==
LOC: EMR 12:52
PROVIDERS: Student in an Organized Health Care Education/Training Program; EMERGENCY PHYSICIAN Emergency Medicine; FAMILY PHYSICIAN Nurse Practitioner
DX: S22.41XA Multiple fractures of ribs, right side, initial encounter for closed fracture (principal); W18.09XA Striking against other object with subsequent fall, initial encounter; E11.9 Type 2 diabetes mellitus without complications; I11.0 Hypertensive heart disease with heart failure; I50.9 Heart failure, unspecified; E78.00 Pure hypercholesterolemia, unspecified; G47.33 Obstructive sleep apnea (adult) (pediatric); I25.10 Atherosclerotic heart disease of native coronary artery without angina pectoris; Z79.01 Long term (current) use of anticoagulants; Z79.4 Long term (current) use of insulin; Z95.2 Presence of prosthetic heart valve; Z95.1 Presence of aortocoronary bypass graft; Z95.0 Presence of cardiac pacemaker
CPT/HCPCS: 96374; 96375; 99284; 70450; 71250; 74176; 80053; 83690; 85025; 85610

== ENCOUNTER → 2025-04-17 14:01 | Outpatient (REF) | payer BC, SELFPAY ==
[2025-04-17 15:28] LABS: % Basophils 0.5 % (0-2); % Eosinophils 1.5 % (0-6); % Immature Granulocytes 0.9 % (0-0.5); % Monocytes 10.6 % (1.7-9.3); % Neutrophils 77.5 % (42.2-75.2); Absolute Eosinophils 0.1 10^3/uL (0-0.7); Absolute Immature Granulocytes 0.1 10^3/uL (0-0.05); Absolute Lymphocytes 0.8 10^3/uL (1.2-3.4); Absolute Monocytes 0.9 10^3/uL (0.1-0.6); Absolute Neutrophils 6.9 10^3/uL (1.4-6.5); Hematocrit 27.2 % (39.0-52.0); Hemoglobin 8.9 g/dL (13.0-18.0); Mean Corp Hgb Conc. 32.7 g/dL (33.0-37.0); Mean Corpuscular Hgb 29.2 pg (27.0-31.0); Mean Corpuscular Volume 89.2 fL (80.0-94.0); Mean Platelet Volume 9.8 fL (7.4-10.4); Nucleated Red Blood Cells % 0 % (-); Platelet Count 347 10^3/uL (130-400); Red Blood Cell Count 3.05 10^6/uL (4.70-6.10); Red Cell Dist. Width 15.3 % (11.5-14.5); White Blood Cell Count 8.8 10^3/uL (4.8-10.8)
[2025-04-17 15:35] LABS: INR 2.48; PT 27.3 Sec (11.4-14.6)
[2025-04-17 15:38] LABS: Calcium 9.9 mg/dl (8.4-10.2); Iron 54 ug/dl (49-181)
[2025-04-17 15:47] LABS: Percent Saturation 16 % (20-50); Total Iron Binding Capacity 333 ug/dl (261-462)
[2025-04-18 09:23] LABS: Intact PTH 139.2 pg/ml (13.6-85.8)
== END ==
LOC: REG 14:01
PROVIDERS: ATTENDING PHYSICIAN Internal Medicine Hematology & Oncology; FAMILY PHYSICIAN Nurse Practitioner; OTHER PHYSICIAN Internal Medicine; OTHER PHYSICIAN Internal Medicine Cardiovascular Disease
DX: D50.9 Iron deficiency anemia, unspecified (principal); I48.0 Paroxysmal atrial fibrillation; N25.81 Secondary hyperparathyroidism of renal origin; E11.22 Type 2 diabetes mellitus with diabetic chronic kidney disease; D63.1 Anemia in chronic kidney disease; D47.2 Monoclonal gammopathy; N18.4 Chronic kidney disease, stage 4 (severe)
CPT/HCPCS: 36415; 82728; 83540; 83550; 83970; 85025; 85610

== ENCOUNTER → 2025-05-15 14:31 | Outpatient (REF) | payer BC, SELFPAY ==
[2025-05-15 15:22] LABS: Urine Albumin 3+ (Neg - Trace); Urine Bilirubin Negative (Negative); Urine Character Clear (Clear); Urine Color Yellow; Urine Glucose 2+ (Negative); Urine Ketone Negative (Negative); Urine Leukocyte 1+ (Negative); Urine Nitrite Negative (Negative); Urine Occult Blood Negative (Negative); Urine Urobilinogen Negative (Neg - 1+); Urine pH 6.5 (5.0-9.0)
[2025-05-15 15:40] LABS: % Basophils 0.4 % (0-2); % Eosinophils 2.4 % (0-6); % Immature Granulocytes 0.9 % (0-0.5); % Monocytes 13.8 % (1.7-9.3); % Neutrophils 70.5 % (42.2-75.2); Absolute Eosinophils 0.2 10^3/uL (0-0.7); Absolute Immature Granulocytes 0.1 10^3/uL (0-0.05); Absolute Monocytes 1.1 10^3/uL (0.1-0.6); Absolute Neutrophils 5.6 10^3/uL (1.4-6.5); Hemoglobin 9.2 g/dL (13.0-18.0); Mean Corp Hgb Conc. 32.9 g/dL (33.0-37.0); Mean Corpuscular Hgb 29.3 pg (27.0-31.0); Mean Corpuscular Volume 89.2 fL (80.0-94.0); Mean Platelet Volume 9.5 fL (7.4-10.4); Nucleated Red Blood Cells % 0 % (-); Platelet Count 381 10^3/uL (130-400); Red Blood Cell Count 3.14 10^6/uL (4.70-6.10); Red Cell Dist. Width 14.4 % (11.5-14.5); White Blood Cell Count 7.9 10^3/uL (4.8-10.8)
[2025-05-15 15:57] LABS: Albumin 3.8 g/dl (3.5-5.0); Blood Urea Nitrogen 59 mg/dl (9-20); Calcium 9.7 mg/dl (8.4-10.2); Carbon Dioxide 21 mmol/L (22-30); Chloride 109 mmol/L (98-107); Glucose 73 mg/dl (70-99); Iron 61 ug/dl (49-181); Phosphorus 5.2 mg/dl (2.5-4.5); Potassium 4.4 mmol/L (3.5-5.1); Sodium 139 mmol/L (135-145); eGFR 14.51
[2025-05-15 16:02] LABS: INR 2.87
[2025-05-15 16:06] LABS: Percent Saturation 18 % (20-50); Total Iron Binding Capacity 333 ug/dl (261-462)
[2025-05-15 16:07] LABS: Urine Protein 129 mg/dl
[2025-05-15 16:39] LABS: Protein/creatinine Ratio 1.7
[2025-05-15 17:54] LABS: Urine Red Blood Cell 0-2 /HPF (0-2); Urine White Cell 16-20 /HPF (0-5)
[2025-05-15 17:55] LABS: Urine Bacteria Few (Negative)
== END ==
LOC: REG 14:31
PROVIDERS: ATTENDING PHYSICIAN Internal Medicine Cardiovascular Disease; FAMILY PHYSICIAN Nurse Practitioner; OTHER PHYSICIAN Internal Medicine; OTHER PHYSICIAN Internal Medicine Hematology & Oncology
DX: I48.0 Paroxysmal atrial fibrillation (principal); N18.4 Chronic kidney disease, stage 4 (severe); D50.9 Iron deficiency anemia, unspecified; D63.1 Anemia in chronic kidney disease; D47.2 Monoclonal gammopathy
CPT/HCPCS: 36415; 80069; 81003; 81015; 82570; 82728; 83540; 83550; 84156; 85025; 85610

== ENCOUNTER → 2025-06-05 11:19 | Outpatient (REF) | payer BC, SELFPAY | LOC: RCS 11:19 | PROVIDERS: ATTENDING PHYSICIAN Internal Medicine Cardiovascular Disease; FAMILY PHYSICIAN Nurse Practitioner | DX: I48.0 Paroxysmal atrial fibrillation (principal); I50.32 Chronic diastolic (congestive) heart failure | CPT/HCPCS: 93306 ==

== ENCOUNTER → 2025-06-12 13:18 | Outpatient (REF) | payer BC, SELFPAY ==
[2025-06-12 14:34] LABS: Hematocrit 27.7 % (39.0-52.0); Hemoglobin 9.1 g/dL (13.0-18.0); Mean Corp Hgb Conc. 32.9 g/dL (33.0-37.0); Mean Corpuscular Volume 89.4 fL (80.0-94.0); Nucleated Red Blood Cells % 0 % (-); Platelet Count 353 10^3/uL (130-400); Red Cell Dist. Width 14.5 % (11.5-14.5)
[2025-06-12 14:38] LABS: INR 3.24; PT 32.9 Sec (11.4-14.6)
== END ==
LOC: REG 13:18
PROVIDERS: ATTENDING PHYSICIAN Internal Medicine Hematology & Oncology; FAMILY PHYSICIAN Nurse Practitioner; REFERRING PHYSICIAN Internal Medicine Cardiovascular Disease
DX: D50.9 Iron deficiency anemia, unspecified (principal); D63.1 Anemia in chronic kidney disease; D47.2 Monoclonal gammopathy; N18.4 Chronic kidney disease, stage 4 (severe); I48.0 Paroxysmal atrial fibrillation
CPT/HCPCS: 36415; 85025; 85610

== ENCOUNTER → 2025-06-20 15:36 | Outpatient (REF) | payer BC, SELFPAY ==
[2025-06-20 16:45] LABS: INR 3.73; PT 37.1 Sec (11.4-14.6)
== END ==
LOC: REG 15:36
PROVIDERS: ATTENDING PHYSICIAN Internal Medicine Cardiovascular Disease
DX: I48.0 Paroxysmal atrial fibrillation (principal)
CPT/HCPCS: 36415; 85610

== ENCOUNTER → 2025-06-25 09:34 | Outpatient (REF) | payer BC, SELFPAY ==
[2025-06-25 10:52] LABS: INR 1.99; PT 23.0 Sec (11.4-14.6)
== END ==
LOC: REG 09:34
PROVIDERS: ATTENDING PHYSICIAN Internal Medicine Cardiovascular Disease
DX: I48.0 Paroxysmal atrial fibrillation (principal)
CPT/HCPCS: 36415; 85610

== ENCOUNTER → 2025-07-02 10:52 | Outpatient (REF) | payer BC, SELFPAY ==
[2025-07-02 12:08] LABS: INR 2.47; PT 26.8 Sec (11.4-14.6)
== END ==
LOC: REG 10:52
PROVIDERS: ATTENDING PHYSICIAN Internal Medicine Cardiovascular Disease
DX: I48.0 Paroxysmal atrial fibrillation (principal)
CPT/HCPCS: 36415; 85610

== ENCOUNTER → 2025-07-11 14:14 | Outpatient (REF) | payer BC, SELFPAY ==
[2025-07-11 14:58] LABS: Hematocrit 26.8 % (39.0-52.0); Hemoglobin 8.8 g/dL (13.0-18.0); Mean Corp Hgb Conc. 32.8 g/dL (33.0-37.0); Mean Corpuscular Volume 89.0 fL (80.0-94.0); Nucleated Red Blood Cells % 0 % (-); Platelet Count 352 10^3/uL (130-400); Red Cell Dist. Width 14.6 % (11.5-14.5)
[2025-07-11 15:15] LABS: INR 3.39; PT 34.5 Sec (11.4-14.6)
[2025-07-11 15:29] LABS: Iron 57 ug/dl (49-181)
[2025-07-11 15:38] LABS: Total Iron Binding Capacity 340 ug/dl (261-462)
[2025-07-11 16:18] LABS: Ferritin 432.0 ng/ml (17.9-464.0)
== END ==
LOC: REG 14:14
PROVIDERS: ATTENDING PHYSICIAN Internal Medicine Cardiovascular Disease; FAMILY PHYSICIAN Internal Medicine Hematology & Oncology; REFERRING PHYSICIAN Nurse Practitioner Adult Health
DX: D50.9 Iron deficiency anemia, unspecified (principal); D63.1 Anemia in chronic kidney disease; D47.2 Monoclonal gammopathy; N18.4 Chronic kidney disease, stage 4 (severe); I48.0 Paroxysmal atrial fibrillation
CPT/HCPCS: 36415; 82232; 82728; 82784; 83521; 83540; 83550; 84155; 84165; 85025; 85610; 86334

== ENCOUNTER → 2025-07-28 11:28 | Outpatient (REF) | payer BC, SELFPAY ==
[2025-07-28 12:38] LABS: INR 3.57; PT 35.4 Sec (11.4-14.6)
[2025-07-28 13:54] LABS: Albumin 3.9 g/dl (3.5-5.0); Blood Urea Nitrogen 61 mg/dl (9-20); Calcium 9.6 mg/dl (8.4-10.2); Carbon Dioxide 23 mmol/L (22-30); Chloride 106 mmol/L (98-107); Glucose 122 mg/dl (70-99); Potassium 4.5 mmol/L (3.5-5.1); Sodium 137 mmol/L (135-145); eGFR 17.63
== END ==
LOC: REG 11:28
PROVIDERS: ATTENDING PHYSICIAN Internal Medicine Cardiovascular Disease; FAMILY PHYSICIAN Nurse Practitioner; REFERRING PHYSICIAN Internal Medicine
DX: I48.0 Paroxysmal atrial fibrillation (principal); I10 Essential (primary) hypertension; N18.4 Chronic kidney disease, stage 4 (severe)
CPT/HCPCS: 36415; 80069; 85610

== ENCOUNTER → 2025-08-04 10:47 | Outpatient (REF) | payer BC, SELFPAY ==
[2025-08-04 11:39] LABS: Hematocrit 27.4 % (39.0-52.0); Hemoglobin 9.0 g/dL (13.0-18.0); Mean Corp Hgb Conc. 32.8 g/dL (33.0-37.0); Mean Corpuscular Volume 89.0 fL (80.0-94.0); Nucleated Red Blood Cells % 0 % (-); Platelet Count 323 10^3/uL (130-400); Red Cell Dist. Width 14.8 % (11.5-14.5)
[2025-08-04 11:45] LABS: INR 2.02; PT 23.0 Sec (11.4-14.6)
== END ==
LOC: REG 10:47
PROVIDERS: ATTENDING PHYSICIAN Internal Medicine Cardiovascular Disease; FAMILY PHYSICIAN Nurse Practitioner; REFERRING PHYSICIAN Internal Medicine Hematology & Oncology
DX: D50.9 Iron deficiency anemia, unspecified (principal); D63.1 Anemia in chronic kidney disease; D47.2 Monoclonal gammopathy; N18.4 Chronic kidney disease, stage 4 (severe); I48.0 Paroxysmal atrial fibrillation; Z95.2 Presence of prosthetic heart valve
CPT/HCPCS: 36415; 85025; 85610

== ENCOUNTER → 2025-08-13 12:25 | Outpatient (REF) | payer BC, SELFPAY ==
[2025-08-13 13:09] LABS: INR 2.17; PT 24.2 Sec (11.4-14.6)
== END ==
LOC: REG 12:25
PROVIDERS: ATTENDING PHYSICIAN Internal Medicine Cardiovascular Disease
DX: I48.0 Paroxysmal atrial fibrillation (principal); Z95.2 Presence of prosthetic heart valve
CPT/HCPCS: 36415; 85610

== ENCOUNTER → 2025-08-18 10:45 | Outpatient (REF) | payer BC, SELFPAY ==
[2025-08-18 11:31] LABS: INR 2.39; PT 26.1 Sec (11.4-14.6)
== END ==
LOC: REG 10:45
PROVIDERS: ATTENDING PHYSICIAN Internal Medicine Cardiovascular Disease
DX: I48.0 Paroxysmal atrial fibrillation (principal); Z95.2 Presence of prosthetic heart valve
CPT/HCPCS: 36415; 85610

== ENCOUNTER → 2025-08-25 11:40 | Outpatient (REF) | payer BC, SELFPAY ==
[2025-08-25 12:45] LABS: INR 2.85; PT 29.8 Sec (11.4-14.6)
== END ==
LOC: REG 11:40
PROVIDERS: ATTENDING PHYSICIAN Internal Medicine Cardiovascular Disease
DX: I48.0 Paroxysmal atrial fibrillation (principal)
CPT/HCPCS: 36415; 85610

== ENCOUNTER → 2025-09-06 08:51 | Outpatient (REF) | payer BC, SELFPAY ==
[2025-09-06 10:04] LABS: Hematocrit 25.9 % (39.0-52.0); Hemoglobin 8.4 g/dL (13.0-18.0); Mean Corp Hgb Conc. 32.4 g/dL (33.0-37.0); Mean Corpuscular Volume 87.2 fL (80.0-94.0); Nucleated Red Blood Cells % 0 % (-); Platelet Count 363 10^3/uL (130-400); Red Cell Dist. Width 14.6 % (11.5-14.5)
[2025-09-06 10:46] LABS: Glycohemoglobin (HgbA1c) 6.3 % (4.0-5.6)
[2025-09-06 11:18] LABS: ALT (SGPT) 24 U/L (0-50); AST (SGOT) 34 U/L (17-59); Albumin 3.8 g/dl (3.5-5.0); Alkaline Phosphatase 62 U/L (38-126); Blood Urea Nitrogen 72 mg/dl (9-20); Calcium 9.6 mg/dl (8.4-10.2); Carbon Dioxide 22 mmol/L (22-30); Chloride 106 mmol/L (98-107); Glucose 150 mg/dl (70-99); Iron 60 ug/dl (49-181); Potassium 4.7 mmol/L (3.5-5.1); Sodium 141 mmol/L (135-145); Total Protein 6.7 g/dl (6.3-8.2); eGFR 15.43
[2025-09-06 11:32] LABS: Total Iron Binding Capacity 332 ug/dl (261-462)
[2025-09-06 11:51] LABS: Ferritin 394.0 ng/ml (17.9-464.0)
== END ==
LOC: REG 08:51
PROVIDERS: ATTENDING PHYSICIAN Internal Medicine Hematology & Oncology; OTHER PHYSICIAN Internal Medicine Endocrinology, Diabetes & Metabolism
DX: D50.9 Iron deficiency anemia, unspecified (principal); D63.1 Anemia in chronic kidney disease; D47.2 Monoclonal gammopathy; N18.4 Chronic kidney disease, stage 4 (severe); E11.21 Type 2 diabetes mellitus with diabetic nephropathy
CPT/HCPCS: 36415; 80053; 82728; 83036; 83540; 83550; 85025

== ENCOUNTER → 2025-10-02 10:06 | Outpatient (REF) | payer BC, SELFPAY ==
[2025-10-02 11:08] LABS: Hematocrit 26.8 % (39.0-52.0); Hemoglobin 8.6 g/dL (13.0-18.0); Mean Corp Hgb Conc. 32.1 g/dL (33.0-37.0); Mean Corpuscular Volume 89.3 fL (80.0-94.0); Nucleated Red Blood Cells % 0 % (-); Platelet Count 355 10^3/uL (130-400); Red Cell Dist. Width 15.1 % (11.5-14.5)
[2025-10-02 11:14] LABS: INR 2.78; PT 29.3 Sec (11.4-14.6)
[2025-10-02 11:33] LABS: Iron 64 ug/dl (49-181)
[2025-10-02 11:42] LABS: Total Iron Binding Capacity 354 ug/dl (261-462)
[2025-10-02 12:14] LABS: Ferritin 355.0 ng/ml (17.9-464.0)
== END ==
LOC: REG 10:06
PROVIDERS: ATTENDING PHYSICIAN Internal Medicine Hematology & Oncology; REFERRING PHYSICIAN Internal Medicine Cardiovascular Disease
DX: I48.0 Paroxysmal atrial fibrillation (principal); D50.9 Iron deficiency anemia, unspecified; D63.1 Anemia in chronic kidney disease; D47.2 Monoclonal gammopathy; N18.4 Chronic kidney disease, stage 4 (severe)
CPT/HCPCS: 36415; 82728; 83540; 83550; 85025; 85610

== ENCOUNTER → 2025-11-17 11:25 | Outpatient (REF) | payer BC, SELFPAY ==
[2025-11-17 12:19] LABS: INR 3.17; PT 32.8 Sec (11.4-14.6)
[2025-11-17 14:27] LABS: Albumin 3.8 g/dl (3.5-5.0); Blood Urea Nitrogen 60 mg/dl (9-20); Calcium 9.6 mg/dl (8.4-10.2); Carbon Dioxide 22 mmol/L (22-30); Chloride 104 mmol/L (98-107); Glucose 118 mg/dl (70-99); Potassium 4.0 mmol/L (3.5-5.1); Sodium 138 mmol/L (135-145); eGFR 15.43
== END ==
LOC: REG 11:25
PROVIDERS: ATTENDING PHYSICIAN Internal Medicine Cardiovascular Disease; REFERRING PHYSICIAN Internal Medicine
DX: N18.4 Chronic kidney disease, stage 4 (severe) (principal); N25.81 Secondary hyperparathyroidism of renal origin; I48.0 Paroxysmal atrial fibrillation; Z95.2 Presence of prosthetic heart valve
CPT/HCPCS: 36415; 80069; 83970; 85610